=== PATIENT | female | born 1960 | race Caucasian/White ===

== ENCOUNTER → 2016-09-30 | Day surgery (SDC) | payer BC, OTHER ==
[2016-08-31 13:48] VITALS: BMI 50.0
--- NOTE | 2016-08-31 14:33 | PAT Medication Instructions ---
Service Date Aug 31, 2016. Current Home Medication List Albuterol Inhaler (Ventolin Inhaler), 2 PUFFS INH Q4H Aspirin (Aspirin Ec), 81 MG PO QAM Calcium Polycarbophil (Fiber Tabs), 1 TAB PO QAM Cyclobenzaprine Hcl (Flexeril), 10 MG PO TID Duloxetine Hcl (Cymbalta), 60 MG PO QAM Fluticasone Prop/Salmeterol (Advair Diskus 500/50 60 Dose), 1 PUFF INH BID Fluticasone Propionate (Nasal) (Flonase Allergy Relief), 2 SPRAYS MIGUEL ÁNGEL QAM Furosemide (Lasix), 40 MG PO BID Gabapentin (Neurontin), 800 MG PO TID Hyoscyamine Sulfate (Levsin), 0.125 MG PO Q4H PRN for RN Levothyroxine Sodium (Levothyroxine Sodium), 1 TAB PO QAM Meloxicam (Mobic), 7.5 MG PO BID PRN for RN Metformin Hcl (Glucophage), 500 MG PO QAM Metoprolol Tartrate (Lopressor), 25 MG PO BID Montelukast Sodium (Singulair), 10 MG PO HS Multiple Vitamin (Multivitamin), 1 TAB PO QAM Nitroglycerin (Nitrostat), 1 TAB SL UD Pantoprazole (Protonix), 40 MG PO QAM Simvastatin (Zocor), 20 MG PO HS Spironolactone (Aldactone), 25 MG PO QAM Trazodone Hcl (Trazodone), 50-100 MG PO HS [Albuterol Neb], 1 DOSE INH Q4H PRN for N [Calcium ], 600 MG PO QAM Medication Instructions For Your Scheduled Surgery - Use if needed: Nitroglycerin (Nitrostat), 1 TAB SL UD - Hold the following medications 48 hours prior to surgery: Metformin Hcl (Glucophage), 500 MG PO QAM - Hold the following medications the morning of surgery: Furosemide (Lasix), 40 MG PO BID Calcium Polycarbophil (Fiber Tabs), 1 TAB PO QAM Cyclobenzaprine Hcl (Flexeril), 10 MG PO TID Multiple Vitamin (Multivitamin), 1 TAB PO QAM Spironolactone (Aldactone), 25 MG PO QAM [Calcium ], 600 MG PO QAM Meloxicam (Mobic), 7.5 MG PO BID PRN (otherwise okay to continue per surgeon) - Take the following medications the morning of surgery with a sip of water OTHERWISE NOTHING TO EAT OR DRINK AFTER MIDNIGHT: Levothyroxine Sodium (Levothyroxine Sodium), 1 TAB PO QAM Albuterol Inhaler (Ventolin Inhaler), 2 PUFFS INH Q4H (use if needed; BRING TO HOSPITAL) Aspirin (Aspirin Ec), 81 MG PO QAM Duloxetine Hcl (Cymbalta), 60 MG PO QAM Metoprolol Tartrate (Lopressor), 25 MG PO BID Gabapentin (Neurontin), 800 MG PO TID Hyoscyamine Sulfate (Levsin), 0.125 MG PO Q4H PRN Pantoprazole (Protonix), 40 MG PO QAM [Albuterol Neb], 1 DOSE INH Q4H PRN Fluticasone Prop/Salmeterol (Advair Diskus 500/50 60 Dose), 1 PUFF INH BID Fluticasone Propionate (Nasal) (Flonase Allergy Relief), 2 SPRAYS MIGUEL ÁNGEL QAM - Take the following medications as scheduled the night before surgery: Albuterol Inhaler (Ventolin Inhaler), 2 PUFFS INH Q4H Cyclobenzaprine Hcl (Flexeril), 10 MG PO TID Furosemide (Lasix), 40 MG PO BID Metoprolol Tartrate (Lopressor), 25 MG PO BID Gabapentin (Neurontin), 800 MG PO TID Montelukast Sodium (Singulair), 10 MG PO HS Trazodone Hcl (Trazodone), 50-100 MG PO HS Simvastatin (Zocor), 20 MG PO HS Hyoscyamine Sulfate (Levsin), 0.125 MG PO Q4H PRN [Albuterol Neb], 1 DOSE INH Q4H PRN Fluticasone Prop/Salmeterol (Advair Diskus 500/50 60 Dose), 1 PUFF INH BID Fluticasone Propionate (Nasal) (Flonase Allergy Relief), 2 SPRAYS MIGUEL ÁNGEL QAM If you have any questions please call us at [phone] or [phone] or [phone]
--- NOTE | 2016-08-31 14:54 | DIAGNOSTIC IMAGING REPORT ---
CHEST 2 VIEWS ROUTINE CLINICAL HISTORY: Preoperative chest COMPARISON STUDY: 06/17/2013 FINDINGS: The cardiac and mediastinal contours remain stable. There is stable interstitial thickening, likely secondary to mild underlying interstitial lung disease. There is no lobar consolidation. There are no pleural effusions.[ IMPRESSION: Stable mild interstitial thickening. No evidence of lobar consolidation. Electronically signed by: Rishi Miller M.D. 08/31/2016 2:52 PM Dictated Date/Time: 08/31/2016 2:52 PM
[2016-08-31 15:32] LABS: BASO % 0.4 %; BASO ABS # 0.03 K/uL (0-0.2); COMPLETE YES; EOS % 2.9 %; HEMATOCRIT 36.9 % (37-47); IG% 0.3 %; LYMPH % 35.4 %; LYMPH ABS # 2.83 K/uL (1.2-3.4); MEAN CELL VOLUME 94.6 fL (80-100); MEAN CORPUSCULAR HEMOGLOBIN 30.5 pg (25-34); MEAN CORPUSCULAR HGB CONC 32.2 g/dl (32-36); MEAN PLATELET VOLUME 10.6 fL (7.4-10.4); PLATELET COUNT 263 K/uL (130-400); WHITE BLOOD COUNT 7.99 K/uL (4.8-10.8)
[2016-08-31 15:44] LABS: URINE APPEARANCE CLEAR (CLEAR); URINE BILIRUBIN NEG (NEG); URINE COLOR YELLOW; URINE NITRITE NEG (NEG); URINE PH 5.5 (4.5-7.5); URINE SPECIFIC GRAVITY 1.018 (1.000-1.030); UROBILINOGEN NEG (NEG); ZZUR CULT IF INDIC CLEAN CATCH NO
[2016-08-31 15:53] LABS: INR 0.9 (0.9-1.1); PROTHROMBIN TIME (PATIENT) 10.1 SECONDS (9.0-12.0)
[2016-08-31 15:59] LABS: MANUAL MICROSCOPIC REQUIRED? NO; REVIEW REQ? NO
[2016-08-31 16:14] LABS: BUN/CREATININE RATIO 15.9 (10-20); CALCIUM 8.8 mg/dl (8.5-10.1); CREATININE 0.77 mg/dl (0.60-1.20); POTASSIUM 4.6 mmol/L (3.5-5.1)
--- NOTE | 2016-09-19 13:36 | History and Physical ---
History & Physical Date Sep 19, 2016. Chief Complaint Left shoulder pain History of Present Illness The patient is a 56 year old female with complaints of left shoulder pain. She states the pain has gotten worse over time. This does affect her activities of daily living and being able to complete them. She has failed PT, NSAIDs, and cortisone injections. She would like to proceed with left shoulder arthroscopy. Past Medical/Surgical History Medial History (1) Hypercholesterolemia (2) Irregular Heart beat (3) Asthma (4) NIDDM (5) Hypothyroidism (6) GERD Surgical History (1) Heart Catheritization 2014 (2) Left TKA (3) 3 x Right knee arthroscopy (4) Right shoulder SAD DCE (5) Additional History Hepatic Disease: No Endocrine Disorder: Yes (NIDDM, Hypothryoidism) Kidney Disease: No Hypertension: No Heart Disease: No Bleeding Tendencies: No Infectious Diseases: No Allergies Coded Allergies: Tetracycline (Unverified Allergy, Severe, HIVES, SOB, 08/31/16) Home Medications Scheduled Albuterol Inhaler (Ventolin Inhaler), 2 PUFFS INH Q4H Aspirin (Aspirin Ec), 81 MG PO QAM Calcium Polycarbophil (Fiber Tabs), 1 TAB PO QAM Cyclobenzaprine Hcl (Flexeril), 10 MG PO TID Duloxetine Hcl (Cymbalta), 60 MG PO QAM Fluticasone Prop/Salmeterol (Advair Diskus 500/50 60 Dose), 1 PUFF INH BID Fluticasone Propionate (Nasal) (Flonase Allergy Relief), 2 SPRAYS MIGUEL ÁNGEL QAM Furosemide (Lasix), 40 MG PO BID Gabapentin (Neurontin), 800 MG PO TID Levothyroxine Sodium (Levothyroxine Sodium), 1 TAB PO QAM Metformin Hcl (Glucophage), 500 MG PO QAM Metoprolol Tartrate (Lopressor), 25 MG PO BID Montelukast Sodium (Singulair), 10 MG PO HS Multiple Vitamin (Multivitamin), 1 TAB PO QAM Nitroglycerin (Nitrostat), 1 TAB SL UD Pantoprazole (Protonix), 40 MG PO QAM Simvastatin (Zocor), 20 MG PO HS Spironolactone (Aldactone), 25 MG PO QAM Trazodone Hcl (Trazodone), 50-100 MG PO HS [Calcium ], 600 MG PO QAM Scheduled PRN Hyoscyamine Sulfate (Levsin), 0.125 MG PO Q4H PRN for RN Meloxicam (Mobic), 7.5 MG PO BID PRN for RN [Albuterol Neb], 1 DOSE INH Q4H PRN for N Physical Examination Skin: warm/dry, no rash Eyes: normal inspection, EOMI ENT: normal ENT inspection Head: normocephalic, atraumatic Neck: supple, no adenopathy Respiratory/Chest: lungs clear, normal breath sounds Cardiovascular: + abnormal rate (irregular rate) Abdomen / GI: normal bowel sounds, non tender Extremities: normal inspection, + pertinent finding (decreased ROM, decreased strength. positive neer impingement, positive hawkin shemar tests) Neurologic/Psych: no motor/sensory deficits, alert Diagnosis Left shoulder impingement syndrome Plan of Treatment Patient is scheduled for a Left shoulder arthroscopy with Subacromial decompression and distal clavicle excision. She had failed conservative therapies that include NSAIDs, cortisone injections and PT. The pain makes it difficult to perform her ADL's. She would like to proceed with surgery. She will be schedule for a left shoulder arthroscopy with subacromial decompression and distal clavicle excision. Risks and benefits were discussed with the patient that include but not limited to infection, DVT, pain, stiffness, need for revision surgery, failure to relieve all symptoms, damage to blood vessels, damage to nerves, and anesthesia risks. She wishes to proceed. all questions were answered to her satisfaction. She will go home with self care after the surgery.
[~2016-09-30] VITALS: Ht 162.6 cm; Wt 131.3 kg
[~2016-09-30] MED LIST: ACETAMINOPHEN 650 MG SUPP PR PRN; ADVIN50/60 INH; ALBUAER19 INH; ALBUTEROL NEB INH; ASPI81TA28 PO; ATROPINE SULFATE 0.1 MG/ML 5ML SYR IV PRN; BUPIVACAINE 0.5 % 5 MG/1 ML MPF 30ML VIAL ONE; CALC625T13 PO; CALCIUM PO; CEFAZOLIN 3000 MG/65 ML D5W IV SCH; CYCL10TA6 PO; CYM/30 PO; DEXAMETHASONE SOD INJ 4 MG/ML VIAL ONE; EpINEphrine HCL INJ 1 MG/ML 5ML SYRINGE ONE; FENTANYL CITRATE INJ 50 MCG/1 ML 2 ML VIAL ONE; FLUT0.15 NAE; FURO40TA3 PO; GABA800T PO; GLC/500 PO; GLYCOPYRROLATE INJ 0.2 MG/ML VIAL ONE; HYOS1TAB PO; KETOROLAC TROMETHAMINE 30 MG/ML VIAL IV. PRN; LACTATED RINGER'S 1000ML 1,000 ML IV SCH; LEVO125T4 PO; LIDOCAINE HCL 2% 2 ML VIAL (20MG/ML) ONE; LIDOCAINE/EPINEPHRINE 1% 20 ML VIAL ONE; LPR25 PO; MELO7.5T5 PO; METOPROLOL TARTRATE 1 MG/ML VIAL ONE; MIDAZOLAM HCL 1 MG/ML 2ML VIAL ONE; MONT1TAB3 PO; MULTTAB58 PO; NEOSTIGMINE METHYLSULFATE 5 MG/5 ML SYR ONE; NTRGSL/4 SL; ONDANSETRON INJ 2 MG/ML 2 ML VIAL IV PRN; ONDANSETRON INJ 2 MG/ML 2 ML VIAL ONE; OXYC-57 PO; OXYCODONE/ACETAMINOPHEN 5-325 TAB PO PRN; PANT40TA PO; PROPOFOL IV EMULSION 10 MG/ML 20 ML VIAL IV ONE; ROCURONIUM BROMIDE 10 MG/ML 5 ML VIAL ONE; ROPIVACAINE 0.5% 5 MG/ML 30 ML VIAL ONE; SCOPOLAMINE 1.5 MG TDSY TD ONE; SIMV20TA5 PO; SPIR25TA89 PO; TRAZ50TA35 PO
[2016-09-30 10:22] VITALS: BP 154/81; PULSE 72; TEMP 36.7; O2SAT 94; Ht 162.6 cm; Wt 131.3 kg
--- NOTE | 2016-09-30 10:35 | History & Physical Bridge Note ---
H&P Re-Evaluation Bridge Note: I have examined the patient, reviewed the History & Physical and in the interval since the performance of the History & Physical I have noted the following changes of clinical significance: No changes noted
--- NOTE | 2016-09-30 14:47 | Discharge Instructions ---
Discharge Instructions Date of Service Sep 30, 2016. Admission Reason for Admission: Left Shoulder Impingement Syndrome, Osteoarthritis Discharge Discharge Diagnosis / Problem: Left shoulder Subacromial decompression, distal clavicle excision Discharge Goals Goal(s): Decrease discomfort, Improve function Activity Recommendations Activity Limitations: per Instructions/Follow-up section . Instructions / Follow-Up Instructions / Follow-Up U DISCHARGE INSTRUCTIONS: SHOULDER ARTHROSCOPY with or without Distal Clavicle Excision SELF CARE INSTRUCTIONS AFTER: A. You are allowed to use your arm actively as comfort allows. Recommend NOT doing repetitive overhead activity or heavy lifting. B. You should start Physical Therapy within 1-3 days from your surgery. You will be provided a prescription with specific restrictions, if needed, at time of discharge. C. You can discontinue the sling as comfort allows within one to two days after surgery. A. At 48 hours post-operatively, you may change your dressing. Use band-aids and change daily. You are allowed to shower at this time and get the incision area wet, but DO NOT soak or submerge incision area in water. (No baths, swimming pools, hot tubs) B. Do NOT apply soap or any ointment/lotions directly over incision. C. You may use ice as needed to operative shoulder SPECIAL CARE INSTRUCTIONS: VERY IMPORTANT TO READ AND REVIEW A. There are a few signs you need to watch for after you are home. Call [facility] at [phone] if you experience any of the following: a. Increased severe shoulder pain. Some pain is expected especially when you exercise b. Increased swelling in your shoulder or arm; pain or swelling in either upper extremity. (Note: swelling and stiffness is normal and expected for several weeks post op, depending on type of shoulder surgery you had). c. Any fluid or drainage from the incision; redness of the incision. d. Shortness of breath or chest pain. B. Please call [facility] at [phone] if you have any questions or concerns about your operation or recovery. C. Call your physician if: a. Temperature is greater than 101 degrees (F). b. Pain is not relieved by prescribed pain medications. c. Increase drainage or redness from incision. d. Unanswered questions or concerns. D. Pain Medication: a. You will be prescribed pain medication upon discharge that should last till your first post-operative appointment. b. You may also take Advil or Ibuprofen between medication doses if you do not have any contraindication to taking them. c. You may also take Advil or Ibuprofen in place of your pain medication if the pain is tolerable. d. If you experience nausea and/or skin rash, discontinue this medication and contact our office for an alternative medication. e. Caution- narcotic pain medication can cause constipation. FOLLOW UP VISIT: Please call [facility] [place] at [phone] to schedule a follow up appointment 10-14 days from your surgery date. Current Hospital Diet Patient's current hospital diet: Regular Diet Discharge Diet Recommended Diet: Regular Diet Pending Studies Studies pending at discharge: no Medical Emergencies . Who to Call and When: Medical Emergencies: If at any time you feel your situation is an emergency, please call 911 immediately. . Non-Emergent Contact Non-Emergency issues call your: Surgeon Call Non-Emergent contact if: temperature is above 101.5, your pain is worsening, wound has increased drainage, wound has increased redness . "Provider Documentation" section prepared by Brian Varela. . VTE Core Measure Inpt VTE Proph given/why not?: Treatment not indicated [place] Drug Monitoring Program Search Results: patient reviewed within database, no issues identified
[2016-09-30] MEDS: FENTANYL CITRATE INJ 50 MCG/1 ML 2 ML VIAL IV PRN ×3 (15:30→15:40)
--- NOTE | 2016-09-30 15:46 | [facility] Operative Report ---
Operative Report Operative Date Sep 30, 2016. Pre-Operative Diagnosis Left shoulder impingment syndrome, AC joint arthritis, glenohumeral arthritis, labral tear, synovitis Post-Operative Diagnosis Same as preop. Procedure(s) Performed Left Shoulder Arthroscopic Subacromial Decompression and Distal Clavicle Excision, Extensive debridement. Surgeon Dr. Suazo Echocardiographer Surgeon(s) None Estimated Blood Loss 2 ml Findings Above Specimens None. Drains 0 Anesthesia geta, interscalene Complication(s) None Disposition Recovery Room / PACU Indications 56-year-old female with long-standing pain over shoulder. She is failed conservative measures including cortisone injection and physical therapy. She wishes to proceed with arthroscopy. Description of Procedure Risks, benefits and alternatives to surgery including, but not limited to, infection DVT, pain, stiffness, need for revision surgery, failure to relieve all symptoms, damage to blood vessels, damage to nerves, risk of anesthesia were discussed with the patient and they wished to proceed. The patient was identified. Laterality was confirmed and marked. The patient received a preoperative antibiotic as well as an interscalene block. They were transferred to the operating room and placed in the supine position and induced into general endotracheal anesthesia per the anesthesia staff. The patient was then safely transferred to the lateral decubitus position, secured by a beanbag. An axillary roll was placed. All pressure points were well-padded. The limb was placed in 10 pounds of lateral traction and then prepped and draped in the usual standard manner with ChloraPrep. The portal sites were anesthetized with 2% lidocaine with epinephrine. I made a standard posterior viewing portal made through a stab incision and then bluntly entered the glenohumeral joint. Then under spinal needle localization, I establish an anterior superolateral portal. The cartilage of the humeral head had a significant amount of degeneration. There were areas of grade 4 change. Loose chondral fragments were seen in the joint and removed with the shaver. The cartilage of the glenoid had grade 2 and 3. The glenoid labrum had some degenerative tearing of the anterior labrum. This was debrided back to stable base utilizing a shaver. The long head of the biceps tendon was normal. The subscapularis was normal. The undersurface of the rotator cuff was intact. I then removed the instrumentation from the joint and entered the subacromial space. I establish a lateral portal under spinal needle localization. There was fairly thickened bursa that was debrided utilizing a shaver. The rotator cuff was normal. I then released the CA ligament with cautery and performed a subacromial decompression, first removing the anterior inferior spur from laterally and then completing with a cutting block technique. I then performed a distal clavicle excision removing a total of 10 mm of bone. Portal sites were closed with nylon. A sterile dressing was applied and a sling placed. All needle and sponge counts were correct at the end of the procedure. The patient was transferred to the PACU in stable condition without apparent complication. I attest to the content of the Intraoperative Record and any orders documented therein. Any exceptions are noted below.
--- NOTE | 2016-09-30 15:49 | Anesthesiology Progress Note ---
Anesthesia Post Op Note Date & Time Sep 30, 2016 at 15:48 Vital Signs Pain Intensity: 4.0 Vital Signs Past 12 Hours Date Time Temp Pulse Resp B/P (MAP) Pulse Ox O2 Delivery O2 Flow Rate FiO2 09/30/16 15:40 94 17 147/76 93 Nasal Cannula 2 09/30/16 15:35 98 16 143/78 92 Nasal Cannula 2 09/30/16 15:30 88 16 159/123 96 Oxymask 10 09/30/16 15:20 89 18 153/95 99 Oxymask 10 09/30/16 15:12 36.2 91 16 133/91 95 Oxymask 10 09/30/16 10:22 36.7 72 20 154/81 (105) 94 Room Air Notes Mental Status: alert / awake / arousable, participated in evaluation Pt Amnestic to Procedure: Yes Nausea / Vomiting: adequately controlled Pain: adequately controlled Airway Patency, RR, SpO2: stable & adequate BP & HR: stable & adequate Hydration State: stable & adequate Anesthetic Complications: no major complications apparent
[2016-09-30 16:05] VITALS: BP 133/67; PULSE 92; TEMP 36.9; O2SAT 93
[2016-09-30 16:35] VITALS: BP 132/67; PULSE 82; O2SAT 93
[2016-09-30 17:05] VITALS: BP 126/61; PULSE 88; TEMP 36.7; O2SAT 93
== END | disposition home or self-care (01) ==
LOC: C.ACU 09:52
PROVIDERS: ATTEND Orthopaedic Surgery
DX: M75.42 Impingement syndrome of left shoulder (principal); M19.012 Primary osteoarthritis, left shoulder; M65.812 Other synovitis and tenosynovitis, left shoulder; S46.812A Strain of other muscles, fascia and tendons at shoulder and upper arm level, left arm, initial encounter; X58.XXXA Exposure to other specified factors, initial encounter; E78.00 Pure hypercholesterolemia, unspecified; I49.9 Cardiac arrhythmia, unspecified; J45.909 Unspecified asthma, uncomplicated; E11.9 Type 2 diabetes mellitus without complications; E03.9 Hypothyroidism, unspecified; K21.9 Gastro-esophageal reflux disease without esophagitis; Z79.82 Long term (current) use of aspirin; Z79.84 Long term (current) use of oral hypoglycemic drugs; Z79.899 Other long term (current) drug therapy

== ENCOUNTER 2019-11-19 08:45 | Inpatient (IN) ==
--- NOTE | 2019-10-21 15:06 | PAT Medication Instructions ---
Medication Instructions Date of Service October 21, 2019 Home Medications Medication Instructions Recorded acetaminophen 500 mg PO Q6H PRN #60 cap 01/14/18 celecoxib [Celebrex] 200 mg PO BID #60 cap 01/14/18 albuterol sulfate 0.63 mg INHALATION UD PRN albuterol sulfate [Ventolin HFA] 2 puff INHALATION UD PRN calcium carbonate [Calcium 600] 600 mg PO QAM calcium polycarbophil [Fiber (calcium polycarbophil)] 625 mg PO QAM docusate sodium [Colace] 100 mg PO QAM duloxetine [Cymbalta] 60 mg PO QAM fluticasone propion-salmeterol [Advair Diskus] 1 inh INHALATION BID fluticasone propionate [Flonase Allergy Relief] 2 spray INTRANASAL QAM furosemide 2 tab PO QAM gabapentin 2 tab PO TID levothyroxine [Levo-T] 150 mcg PO QAM metformin 850 mg PO BID metoprolol tartrate 25 mg PO QAM montelukast [Singulair] 10 mg PO HS multivitamin [Multiple Vitamins] 1 tab PO QAM nitroglycerin 1 tab SUBLINGUAL UD PRN polyethylene glycol 3350 [Miralax] 1 dose PO QAM simvastatin [Zocor] 20 mg PO HS spironolactone 25 mg PO QAM acetaminophen 500 mg PO Q6H PRN celecoxib [Celebrex] 200 mg PO BID amitriptyline 50 mg PO HS semaglutide [Ozempic] 0.25 mg SUBCUT WK Continue as directed nitroglycerin 1 tab SUBLINGUAL UD PRN (if needed) semaglutide [Ozempic] 0.25 mg SUBCUT WK ASK your surgeon for instructions celecoxib [Celebrex] 200 mg PO BID DO NOT take the morning of surgery calcium carbonate [Calcium 600] 600 mg PO QAM calcium polycarbophil [Fiber (calcium polycarbophil)] 625 mg PO QAM docusate sodium [Colace] 100 mg PO QAM furosemide 2 tab PO QAM metformin 850 mg PO BID multivitamin [Multiple Vitamins] 1 tab PO QAM polyethylene glycol 3350 [Miralax] 1 dose PO QAM spironolactone 25 mg PO QAM Take morning of surgery With a small sip of water, OTHERWISE NOTHING TO EAT OR DRINK AFTER MIDNIGHT: albuterol sulfate 0.63 mg INHALATION UD PRN (if needed) albuterol sulfate [Ventolin HFA] 2 puff INHALATION UD PRN (if needed) duloxetine [Cymbalta] 60 mg PO QAM fluticasone propion-salmeterol [Advair Diskus] 1 inh INHALATION BID fluticasone propionate [Flonase Allergy Relief] 2 spray INTRANASAL QAM gabapentin 2 tab PO TID levothyroxine [Levo-T] 150 mcg PO QAM metoprolol tartrate 25 mg PO QAM acetaminophen 500 mg PO Q6H PRN (okay to take up to 4 hours prior to surgery if needed) Take evening before surgery albuterol sulfate 0.63 mg INHALATION UD PRN (if needed) albuterol sulfate [Ventolin HFA] 2 puff INHALATION UD PRN (if needed) fluticasone propion-salmeterol [Advair Diskus] 1 inh INHALATION BID gabapentin 2 tab PO TID metformin 850 mg PO BID montelukast [Singulair] 10 mg PO HS simvastatin [Zocor] 20 mg PO HS acetaminophen 500 mg PO Q6H PRN (if needed) amitriptyline 50 mg PO HS Other Notes If you have any questions please call us at [phone] or [phone] or [phone] or [phone]
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
--- NOTE | 2019-10-24 14:52 | XRay Report ---
XR chest Pre-admission PA/Lat CLINICAL HISTORY: pat preoperative evaluation COMPARISON STUDY: 06/17/2013 FINDINGS: Mild chronic interstitial prominence. No focal infiltrate. Diaphragms are smooth. IMPRESSION: Chronic change. No acute process. ACT 112: Negative or not required by law. The above report was generated using voice recognition software. It may contain grammatical, syntax or spelling errors. Electronically signed by: Melecio Rowan M.D. 10/24/2019 2:51 PM
[2019-10-24 15:46] LABS: Basophils # (auto) 0.02 K/uL (0-0.2); Basophils % (auto) 0.2 %; Eosinophils # (auto) 0.24 K/uL (0-0.5); Eosinophils % (auto) 2.9 %; Hematocrit (blood only) 38.1 % (37-47); Immature Granulocytes # (auto) 0.01 K/uL (0.00-0.02); Immature Granulocytes % (auto) 0.1 %; Lymphocytes # (auto) 3.62 K/uL (1.2-3.4); Lymphocytes % (auto) 43.7 %; Mean Corpuscular Hemoglobin 29.4 pg (25-34); Mean Corpuscular Hgb Conc 31.5 g/dL (32-36); Mean Corpuscular Volume 93.4 fL (80-100); Mean Platelet Volume 10.4 fL (7.4-10.4); Monocytes # (auto) 0.48 K/uL (0.11-0.59); Monocytes % (auto) 5.8 %; Neutrophils # (auto) 3.92 K/uL (1.4-6.5); Neutrophils % (auto) 47.3 %; Platelet Count 313 K/uL (130-400); RDW Coefficient of Variation 13.4 % (11.5-14.5); RDW Standard Deviation 45.9 fL (36.4-46.3); Red Blood Count 4.08 M/uL (4.2-5.4); White Blood Count 8.29 K/uL (4.8-10.8)
[2019-10-24 15:48] LABS: Appearance Urine Clear (Clear); Bilirubin Urine Negative (Negative); Blood Urine Negative (Negative); Color Urine Yellow; Glucose Urine UA Negative (Negative); Ketones Urine Negative (Negative); Leukocyte Esterase Urine Negative (Negative); Nitrite Urine Negative (Negative); Protein Urine Negative (Negative); Specific Gravity Urine 1.012 (1.000-1.030); Urobilinogen Urine Negative (Negative); pH Urine 6.5 (4.5-7.5)
[2019-10-24 15:52] LABS: Albumin Level 3.4 gm/dl (3.4-5.0); BUN Creatinine Ratio 12.7 (10-20); Calcium 9.6 mg/dl (8.5-10.1); Creatinine Clr Calc Pharmacy 101.7 ml/min; Est GFR (African American) 104.5; Est GFR (Non-African American) 90.1; Potassium 5.3 mmol/L (3.5-5.1)
[2019-10-24 15:58] LABS: Partial Thromboplastin Ratio 1.1; Partial Thromboplastin Time 29.5 Seconds (21.0-31.0); Prothrombin Time 10.9 Seconds (9.0-12.0)
--- NOTE | 2019-10-24 17:35 | Electrocardiogram Report ---
Test Reason : Blood Pressure : / mmHG Vent. Rate : 057 BPM Atrial Rate : 057 BPM P-R Int : 158 ms QRS Dur : 096 ms QT Int : 432 ms P-R-T Axes : 038 057 044 degrees QTc Int : 420 ms Sinus bradycardia Otherwise normal ECG When compared with ECG of 31-AUG-2016 14:30, No significant change was found Confirmed by Bob Byrne ([id number]) on 10/24/2019 5:35:09 PM Referred By: Pardeep Guerrero Confirmed By:Randy Byrne
[2019-10-25 05:40] LABS: Estimated Average Glucose 131 mg/dl; Hemoglobin A1C 6.2 % (4.5-5.6)
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
[~2019-11-19 08:45] MED LIST changes: +ACETAMINOPHEN 500 MG TAB PO SCH; -ACETAMINOPHEN 650 MG SUPP PR PRN; -ADVIN50/60 INH; -ALBUAER19 INH; -ALBUTEROL NEB INH; -ASPI81TA28 PO; -ATROPINE SULFATE 0.1 MG/ML 5ML SYR IV PRN; -BUPIVACAINE 0.5 % 5 MG/1 ML MPF 30ML VIAL ONE; +BUPIVACAINE 0.5 % 5 MG/1 ML PF 10ML VIAL ONE; -CALC625T13 PO; -CALCIUM PO; +CEFAZOLIN 2000MG 2,000 MG/15 ML SYR IV SCH; -CEFAZOLIN 3000 MG/65 ML D5W IV SCH; -CYCL10TA6 PO; -CYM/30 PO; +CeleBREX 200 MG CAP PO SCH; -DEXAMETHASONE SOD INJ 4 MG/ML VIAL ONE; -EpINEphrine HCL INJ 1 MG/ML 5ML SYRINGE ONE; +FAMOTIDINE 20 MG TAB PO SCH; -FENTANYL CITRATE INJ 50 MCG/1 ML 2 ML VIAL ONE; -FLUT0.15 NAE; -FURO40TA3 PO; -GABA800T PO; +GABAPENTIN 600 MG DOSE PO SCH; -GLC/500 PO; -GLYCOPYRROLATE INJ 0.2 MG/ML VIAL ONE; -HYOS1TAB PO; -KETOROLAC TROMETHAMINE 30 MG/ML VIAL IV. PRN; -LACTATED RINGER'S 1000ML 1,000 ML IV SCH; -LEVO125T4 PO; -LIDOCAINE HCL 2% 2 ML VIAL (20MG/ML) ONE; -LIDOCAINE/EPINEPHRINE 1% 20 ML VIAL ONE; -LPR25 PO; +LR 500ML BOLUS, THEN 15ML/HR IV SCH; -MELO7.5T5 PO; +METOCLOPRAMIDE HCL 10 MG TABLET PO SCH; -METOPROLOL TARTRATE 1 MG/ML VIAL ONE; -MIDAZOLAM HCL 1 MG/ML 2ML VIAL ONE; -MONT1TAB3 PO; -MULTTAB58 PO; -NEOSTIGMINE METHYLSULFATE 5 MG/5 ML SYR ONE; -NTRGSL/4 SL; -ONDANSETRON INJ 2 MG/ML 2 ML VIAL IV PRN; -ONDANSETRON INJ 2 MG/ML 2 ML VIAL ONE; -OXYC-57 PO; -OXYCODONE/ACETAMINOPHEN 5-325 TAB PO PRN; -PANT40TA PO; -PROPOFOL IV EMULSION 10 MG/ML 20 ML VIAL IV ONE; -ROCURONIUM BROMIDE 10 MG/ML 5 ML VIAL ONE; -ROPIVACAINE 0.5% 5 MG/ML 30 ML VIAL ONE; +ROPIVACAINE 0.5% HCL/PF 150 MG, BUPIVACAINE 0.5% MPF 30 ML, EPINEPHrine 30MG/30ML (OR U... INSTIL SCH; -SCOPOLAMINE 1.5 MG TDSY TD ONE; -SIMV20TA5 PO; -SPIR25TA89 PO; +TRANEXAMIC ACID 1,000 MG **IV Intra-op IV SCH; +TRANEXAMIC ACID 1,000 MG **IV Pre-op IV SCH; -TRAZ50TA35 PO; +dexAMETHasone 4 MG TAB PO SCH
[2019-11-19] MEDS ORDERED: fentaNYL citrate 100 MCG/2 ML VIAL ONE (09:45)
[2019-11-19] MEDS ORDERED: MIDAZOLAM HCL 1 MG/ML 2ML VIAL ONE (09:45)
[2019-11-19] MEDS ORDERED: PROPOFOL IV EMULSION 10 MG/ML 20 ML VIAL IV ONE ×2 (10:13→13:17)
[2019-11-19] MEDS ORDERED: LIDOCAINE HCL 2% 2 ML VIAL/AMP(20MG/ML) INFIL ONE (10:13)
[2019-11-19] MEDS ORDERED: ONDANSETRON INJ 2 MG/ML 2 ML VIAL ONE (10:14)
[2019-11-19] MEDS ORDERED: ONDANSETRON INJ 2 MG/ML 2 ML VIAL IV PRN ×2 (10:17→15:30)
[2019-11-19] MEDS ORDERED: ePHEDrine sulfate 50 MG/ML AMP IV PRN (10:17)
[2019-11-19] MEDS ORDERED: HYDROmorphone INJ 1 MG/ML SYRINGE IV PRN (10:17)
[2019-11-19] MEDS ORDERED: ATROPINE SULFATE 0.1 MG/ML 10ML SYR IV PRN (10:17)
[2019-11-19] MEDS ORDERED: fentaNYL citrate 100 MCG/2 ML VIAL IV PRN (10:17)
--- NOTE | 2019-11-19 10:46 | History & Physical Bridge Note ---
Date of Service November 19, 2019 History & Physical Bridge Note I have examined the patient, reviewed the History & Physical and in the interval since the performance of the History & Physical I have noted the following changes of clinical significance: no changes noted
[2019-11-19] MEDS ORDERED: ORTHO JOINT ANESTHETIC ONE (11:06)
[2019-11-19] MEDS ORDERED: BACITRACIN INJ 50,000 UNIT VIAL ONE (11:06)
[2019-11-19] MEDS ORDERED: ePHEDrine sulfate 50 MG/ML SYR ONE (11:48)
--- NOTE | 2019-11-19 13:32 | Post Operative Brief Note ---
Immediate Post Op Note v1 Date of Surgery November 19, 2019 Pre & Post Diagnosis Operation Date: 11/19/19 10:50 Pre-Op Diagnosis: Unilateral Primary Osteoarthrits, Right Hip Post-Op Diagnosis: Unilateral Primary Osteoarthrits, Right Hip I identified the patient and participated in the time-out.: Yes Procedure Operation Date: 11/19/19 10:50 Actual Procedures p Right Total Hip Arthroplasty Posterior(Right) - Pardeep Guerrero DO Surgeon Pardeep Guerrero DO Animal Sitter Wyatt Boyle Estimated Blood Loss 225 Findings Consistent with Post-Op Diagnosis Fluids 1700 cc LR Specimens femoral head Anesthesia Type Spinal MAC Complications none Disposition Disposition: Recovery Room Overlapping Procedure I was present for: the critical portions of procedure. I was immediately available: during the entire case. Back up surgeon: was not required during procedure.
--- NOTE | 2019-11-19 13:37 | Operative Report ---
Post Operative Report Pre & Post Diagnosis Operation Date: 11/19/19 10:50 Pre-Op Diagnosis: Unilateral Primary Osteoarthrits, Right Hip Post-Op Diagnosis: Unilateral Primary Osteoarthrits, Right Hip I identified the patient and participated in the time-out.: Yes Procedure Operation Date: 11/19/19 10:50 Actual Procedures p Right Total Hip Arthroplasty Posterior(Right) - Pardeep Guerrero DO Surgeon Pardeep Guerrero DO Chief Engineer Drilling And Recovery Wyatt Boyle Estimated Blood Loss 225 Findings Consistent with Post-Op Diagnosis Fluids 1700 cc LR Specimens femoral head Anesthesia Type Spinal MAC Complications none Disposition Disposition: Recovery Room Indications The patient is a 59-year-old female who presents with severe progressive right hip DJD who has failed outpatient conservative treatments. I indicated the patient for a total hip replacement and the risks and benefits were explained in detail which included but not limited to infection, bleeding, blood clot, damage to surrounding bone, nerves, vessels, soft tissue, hip dislocation, failure of the prosthesis, leg length discrepancy, need for additional surgery and . The patient agreed to proceed with replacement of the hip and informed consent was obtained. Appropriate clearances were obtained. Description of Procedure COMPONENTS USED: [employer]len [employer] hip system: Acetabulum size 52, femur size 7.5 reduced extended offset, femoral head 36+0, liner 5236 high wall, acetabular screw 30 mm x 1, 25 mm x 1. Following induction of adequate spinal anesthesia, the patient was transferred to the OR table and placed in lateral decubitus position with left hip down. The right hip was prepped and draped in the typical sterile fashion. A timeout was performed, patient identified and site raphael confirmed. Appropriate antibiotics were given. A standard posterolateral/Chavez-Langenbeck incision was made. Subcutaneous tissue was sharply dissected. Electrocautery was utilized for hemostasis. The fascia was incised throughout the length of the wound and retracted with the Charnley retractor. The bursa was taken down and the short external rotators were identified. The piriformis was tagged with #1 Vicryl. The short external rotators and capsule were divided from the posterior aspect of the femur using electrocautery. The posterior capsule was tagged with #1 Vicryl. Both external rotators and posterior capsule were swept posterior and protected, along with protecting the sciatic nerve. The hip was dislocated by flexion and internally rotation in a controlled manner and exposure of the femoral neck was gained with an old-style Hohmann and a blunt cobra retractor. A femoral cutting guide was utilized for making the appropriate level femoral neck cut with reciprocating saw. The femoral head was removed, measured and reserved on the back table. Next, attention was turned to the acetabulum. A posterior and anterior offset retractor was placed to gain adequate exposure. Acetabular labrum as well as posterior capsule elements were removed using electrocautery and forceps. Fovea centralis was cleared of all soft tissue. Sequential reaming was performed starting at 44 mm and carried up to a 51 mm and decision was made to proceed with impaction of a 52 mm G7 Osteo-Ti cup. This was impacted and held using a 30 mm and 25 mm bone screw. The trial acetabular liner was placed at this time. Next, attention was turned to the proximal femur where a Bovie and pickup was used to further clear short external rotators from their insertion on the femur. Box osteotome and canal finder was used to gain access to the femoral canal and the lateral reamer on power was used to further open the proximal lateral canal. Sequentially rasping was carried up to a 7.5 which gave good fit and fill of the proximal femur. A trial reduction was carried out with a reduced extended offset femoral neck component a 36+0 mm femoral head. The trial reduction was stable in all degrees of rotation with no [id number] impingement. The hip was dislocated, trial components were removed and access to the acetabulum was re-established. The trial liner was removed and the cup was irrigated to ensure all debris was removed. The final acetabular liner was inserted and properly seated in the cup. Access to the femur was once more gained and the size 10.5 femoral stem with reduced extended offset was impacted into position. The hip was once more assessed with the 36+0 mm femoral head. Stability was accessed and found to be excellent with equal leg lengths. The hip was dislocated for the last time and the final 36+0 ceramic femoral head was impacted in place and the hip was reduced. Range of motion was checked once again and found to be stable. A Betadine soak was performed. After 3 minutes, the hip was once more irrigated with copious sterile saline solution with bacitracin. The angeline-incisional soft tissue was injected utilizing [place] ortho mix which includes a combination of Ropivicaine 0.5% 150mg, Bupivicaine 0.5%/Epinephrine 1:200,000 30ml, Toradol 30mg, Dexamethasone 4mg, Ketamine 10mg, Clonidine 100mcg and NSS 30ml Orthomix solution. The piriformis, external rotators and capsule were repaired to the greater trochanter through bone tunnels using #5 FiberWire. The fascia was closed using #1 Vicryl, subcutaneous tissue was closed using 2-0 Vicryl, and skin was closed with wilian. Sterile dressings were applied which included helio incisional VAC. The patient tolerated the procedure well and was transported to PACU in stable condition. Due to the complex nature of the procedure, the entire surgery was performed with the operational assistance of Wyatt Boyle PA-C. The electrician station assistant, under direct supervision, was involved in the actual performance of all aspects of the surgical procedure including patient positioning, hemostasis, tissue retraction, instrument management and wound closure. I attest to the content of the Intraoperative Record and any orders documented therein. Any exceptions are noted below.
--- NOTE | 2019-11-19 14:20 | XRay Report ---
XR hip 1V RT w pelvis HISTORY: 59 years-old Female IN PACU - A/P PELVIS and LATERAL HIP right hip total joint arthroplast y COMPARISON: None TECHNIQUE: AP view the pelvis with crosstable lateral view of the right hip FINDINGS: Severe left hip osteoarthritis. Right hip total joint arthroplasty demonstrates satisfactory alignmen t. No acute fracture or retained foreign body. Expected postsurgical soft tissue swelling and deep ti ssue air with lateral skin wilian. IMPRESSION: Right hip total joint arthroplasty with expected postoperative changes. ACT 112: Negative or not required by law. The above report was generated using voice recognition software. It may contain grammatical, syntax o r spelling errors. Electronically signed by: Walter Currie M.D. 11/19/2019 2:18 PM
--- NOTE | 2019-11-19 14:26 | Anesthesiology Progress Note ---
Date of Service November 19, 2019 Anesthesia Post Procedure Vital Signs Vital Signs: Temp Pulse Pulse Resp BP Pulse Ox 11/19/19 14:20 36.4 C L 63 19 135/62 99 11/19/19 14:10 72 14 120/67 97 11/19/19 14:00 75 23 113/63 96 11/19/19 13:54 36.6 C 71 20 113/63 94 11/19/19 09:52 59 L 18 140/73 96 11/19/19 09:22 37.1 C 60 18 153/86 H 96 Pain Intensity Right Hip: Pain Intensity: 5 Transfer of Care Handoff Completed per policy Notes Mental Status: alert / awake / arousable and participated in evaluation Patient Amnestic to Procedure: Yes Nausea / Vomiting: adequately controlled Pain: adequately controlled Airway Patency, RR, SpO2: stable & adequate BP & HR: stable & adequate Hydration State: stable & adequate Neuraxial Anesthesia: was administered and sensory block is resolving Anesthetic Complications: no major complications apparent and Pt Satisfied with anesthetic care
[2019-11-19] MEDS ORDERED: METOCLOPRAMIDE HCL INJ 5 MG/ML 2 ML VIAL IV PRN (15:30)
[2019-11-19] MEDS ORDERED: SODIUM CHLORIDE 0.9% 1000ML 1,000 ML IV SCH (15:30)
[2019-11-19] MEDS ORDERED: NALOXONE HCL 0.4 MG/1 ML VIAL/CARP IV PRN (15:30)
[2019-11-19] MEDS ORDERED: MAGNESIUM HYDROXIDE SUSP 30 ML UDC PO PRN (15:30)
[2019-11-19] MEDS ORDERED: bisacodyL 10 MG SUPP PR PRN (15:30)
[2019-11-19] MEDS ORDERED: PHARMACY GLYCEMIC MGMT CONSULT PRN (15:31)
[2019-11-19] MEDS: ACETAMINOPHEN 500 MG TAB PO SCH ×2 (16:13→20:43)
[2019-11-19] MEDS: KETOROLAC TROMETHAMINE 15 MG/ML VIAL IV SCH ×2 (16:13→20:43)
--- NOTE | 2019-11-19 17:28 | Pharmacy Report ---
Glycemic Control Consultation - Date of Service November 19, 2019 - Scope Scope: Glycemic Pharmacist consulted for glycemic control and to write orders per [facility] inpatient glycemic control protocol. - Objective Weight: 110.8 kg Accuchecks BSG (last 24hrs): 11/19/19 11/19/19 09:05 17:16 POC Glucose 113 H 199 H HbA1c: Hemoglobin A1c 6.2 % (4.5-5.6) H 10/24/19 14:25 - Recent Pertinent Medications Outpatient Anti-diabetic Regimen: * Ozempic 0.5 mg SQ every Monday + Metformin 850 mg PO BIDM * A1c = 6.2% (10/24/2019) Risk Factors for Insulin Resistance: * Steroids: * Dexamethasone 8 mg PO x 1 pre-op * Recent Surgery: * POD #0 R KRISTINE * Diet: * T2DM - Assessment & Plan Assessment & Plan: ASSESSMENT: * 59 yo F admitted s/p right total hip arthroplasty. Pharmacy is consulted for inpatient glycemic management. Patient is a well-controlled type 2 diabetic on metformin and GLP-1 RA as an outpatient. * Pre-op BSG was well controlled at 113 mg/dL. Post-op BSG was 199 mg/dL which is elevated likely due to stress of surgery and pre-op steroids. Will give the patient a one time NPH dose of 0.2 units/kg with dinner tonight. Plan on starting correctional/prandial insulin based on weight/stress of three. PLAN FOR INPATIENT GLYCEMIC CONTROL: * Holding outpatient oral diabetes medications * Basal insulin * NPH 20 units SQ x 1 * Bolus insulin * NovoLog per scale ACHS or Q6hrs while NPO * Goal Range: Low 110 mg/dL - High 140 mg/dL * Correction Factor: 15 mg/dL/unit * Nutritional / Prandial insulin per carb ratio of 1 unit per 5 grams CHO consumed * Please note that the plan above was derived based on current level of insulin resistance and hospital stress. These recommendations are appropriate for inpatient admission only. Plan of care upon discharge will need to be reassessed to avoid potential outpatient hypo/hyperglycemia. Thank you.
[2019-11-19] MEDS ORDERED: NovoLIN-N (NPH) PER UNIT CHARGE SQ ONE (17:30)
[2019-11-19] MEDS: INSULIN ASPART 100 UNITS/ML 3 ML PEN SC SCH ×2 (17:51→22:25)
[2019-11-19] MEDS ORDERED: ALBUTEROL HFA 8 GM INHALER INH PRN (19:00)
[2019-11-19] MEDS ORDERED: ALBUTEROL 0.083% NEBU SOLN 3 ML VIAL INH PRN (19:00)
[2019-11-19] MEDS: OXYCODONE HCL IR 5 MG TAB (IMMEDIATE RELEASE) PO PRN ×2 (19:14→23:17)
--- NOTE | 2019-11-19 19:55 | Orthopedic Progress Note ---
Date of Service November 19, 2019 Assessment & Plan (1) Degenerative joint disease of right hip: Status post right total hip arthroplasty -Ancef x24 DVT prophylaxis: SCDs, teds, ASA twice daily Weight-bear as tolerates right lower extremity Posterior hip precautions PT/OT Postoperative x-ray demonstrates a well aligned well fixed prosthesis without evidence of fracture or dislocation A.m. labs DC planning (2) Obesity: In additional to negative effects on overall health, the patient understands that due to their underlying obesity, they are at increased risk for developing the complications listed above. Admission and Anticipated Discharge Date Admission Date: November 19, 2019 Subjective Post Operative Progress Note Patient seen sitting up in bed, comfortable, denies complaints, pain well controlled, no acute issues. Review of Systems Review of Systems: All systems reviewed & are unremarkable except as noted in HPI & below Constitutional: as per Subjective / HPI Physical Exam Physical Exam: RLE NVSI +EHL/FHL/TA/GS SILT grossly, +2 DP pulse, compartments soft NT, dressing cdi. Constitutional: WD/WN, vitals as above Results & Data ([facility]) Vital Signs (Past 12 Hours) Vital Signs Temp Pulse Pulse Resp BP Pulse Ox 11/19/19 19:08 36.7 C 85 17 137/72 93 11/19/19 18:01 36.9 C 96 H 17 136/80 97 11/19/19 16:41 36.5 C 63 17 117/64 94 11/19/19 16:00 36.7 C 88 17 112/71 93 11/19/19 15:15 36.7 C 79 16 115/78 95 11/19/19 14:45 36.9 C 77 16 124/76 95 11/19/19 14:20 36.4 C L 63 19 135/62 99 11/19/19 14:10 72 14 120/67 97 11/19/19 14:00 75 23 113/63 96 11/19/19 13:54 36.6 C 71 20 113/63 94 11/19/19 09:52 59 L 18 140/73 96 11/19/19 09:22 37.1 C 60 18 153/86 H 96
[2019-11-19] MEDS: ASPIRIN 325 MG ECTAB PO SCH (20:44)
[2019-11-19] MEDS: DOCUSATE SODIUM 100 MG CAP PO SCH (20:44)
[2019-11-19] MEDS: GABAPENTIN 800 MG TAB PO SCH (20:44)
[2019-11-19] MEDS ORDERED: SENNA 8.6 MG TAB PO SCH (21:00)
[2019-11-19] MEDS ORDERED: AMITRIPTYLINE HCL 50 MG TAB PO SCH (21:00)
[2019-11-19] MEDS ORDERED: SIMVASTATIN 20 MG TAB PO SCH (21:00)
[2019-11-19] MEDS ORDERED: MONTELUKAST SODIUM 10 MG TABLET PO SCH (21:00)
[2019-11-19] MEDS: CEFAZOLIN 3000MG/72.5 ML BAG IV SCH (21:30)
[2019-11-20] MEDS: HYDROmorphone INJ 0.5 MG/0.5 ML SYR IV PRN ×3 (00:46→14:43)
[2019-11-20] MEDS ORDERED: CEFAZOLIN 3,000 MG in DEXTROSE 5% 50 ML IV ONE (05:45)
[2019-11-20] MEDS: CEFAZOLIN 3000MG/72.5 ML BAG IV SCH (05:47)
[2019-11-20] MEDS: KETOROLAC TROMETHAMINE 15 MG/ML VIAL IV SCH ×2 (05:47→10:20)
[2019-11-20] MEDS: ACETAMINOPHEN 500 MG TAB PO SCH ×2 (05:53→14:43)
[2019-11-20 06:09] LABS: Basophils # (auto) 0.01 K/uL (0-0.2); Basophils % (auto) 0.1 %; Hematocrit (blood only) 36.2 % (37-47); Hemoglobin 11.8 g/dL (12.0-16.0); Immature Granulocytes # (auto) 0.07 K/uL (0.00-0.02); Immature Granulocytes % (auto) 0.4 %; Lymphocytes # (auto) 2.69 K/uL (1.2-3.4); Lymphocytes % (auto) 16.7 %; Mean Corpuscular Hemoglobin 29.8 pg (25-34); Mean Corpuscular Hgb Conc 32.6 g/dL (32-36); Mean Corpuscular Volume 91.4 fL (80-100); Mean Platelet Volume 10.2 fL (7.4-10.4); Monocytes # (auto) 1.08 K/uL (0.11-0.59); Monocytes % (auto) 6.7 %; Neutrophils # (auto) 12.26 K/uL (1.4-6.5); Neutrophils % (auto) 76.1 %; Platelet Count 354 K/uL (130-400); RDW Coefficient of Variation 13.3 % (11.5-14.5); RDW Standard Deviation 44.6 fL (36.4-46.3); Red Blood Count 3.96 M/uL (4.2-5.4); White Blood Count 16.11 K/uL (4.8-10.8)
[2019-11-20] MEDS ORDERED: LEVOTHYROXINE SODIUM 150 MCG TABLET PO SCH (06:30)
[2019-11-20 06:49] LABS: BUN Creatinine Ratio 14.2 (10-20); Calcium 9.1 mg/dl (8.5-10.1); Creatinine Clr Calc Pharmacy 92.9 ml/min; Est GFR (African American) 96.4; Est GFR (Non-African American) 83.2
[2019-11-20] MEDS: OXYCODONE HCL IR 5 MG TAB (IMMEDIATE RELEASE) PO PRN ×2 (07:58→13:03)
[2019-11-20] MEDS: DOCUSATE SODIUM 100 MG CAP PO SCH (08:02)
[2019-11-20] MEDS: GABAPENTIN 800 MG TAB PO SCH ×2 (08:03→14:43)
[2019-11-20] MEDS: ASPIRIN 325 MG ECTAB PO SCH (08:05)
--- NOTE | 2019-11-20 08:26 | Orthopedic Progress Note ---
Date of Service November 20, 2019 Assessment & Plan (1) Degenerative joint disease of right hip: Status post right total hip arthroplasty -Ancef x24 DVT prophylaxis: SCDs, teds, ASA twice daily Weight-bear as tolerates right lower extremity Posterior hip precautions PT/OT Postoperative x-ray demonstrates a well aligned well fixed prosthesis without evidence of fracture or dislocation A.m. labs - as above, hgb 11.8 DC planning - home with (2) Obesity: In additional to negative effects on overall health, the patient understands that due to their underlying obesity, they are at increased risk for developing the complications listed above. Admission and Anticipated Discharge Date Admission Date: November 19, 2019 Subjective Post Operative Progress Note Patient seen sitting up in bed, comfortable, denies complaints, pain well controlled, no acute issues. Denies F/C/N/V/SOB/CP. Review of Systems Review of Systems: All systems reviewed & are unremarkable except as noted in HPI & below Constitutional: as per Subjective / HPI Physical Exam Physical Exam: RLE NVSI +EHL/FHL/TA/GS SILT grossly, +2 DP pulse, compartments soft NT, dressing cdi. Constitutional: WD/WN, vitals as above Results & Data ([facility]) Vital Signs (Past 12 Hours) Vital Signs Temp Pulse Resp BP Pulse Ox 11/20/19 07:40 36.6 C 66 16 115/71 94 11/20/19 03:39 36.7 C 71 18 105/67 97 11/19/19 23:05 36.7 C 78 18 111/66 94 Laboratory Results 11/20/19 11/20/19 11/20/19 Range/Units 08:11 05:21 05:21 WBC 16.11 H (4.8-10.8) K/uL RBC 3.96 L (4.2-5.4) M/uL Hgb 11.8 L (12.0-16.0) g/dL Hct 36.2 L (37-47) % MCV 91.4 (80-100) fL MCH 29.8 (25-34) pg MCHC 32.6 (32-36) g/dL RDW Std Deviation 44.6 (36.4-46.3) fL RDW Coeff of Joseph 13.3 (11.5-14.5) % Plt Count 354 (130-400) K/uL MPV 10.2 (7.4-10.4) fL Immature Gran % (Auto) 0.4 % Neut % (Auto) 76.1 % Lymph % (Auto) 16.7 % Clare % (Auto) 6.7 % Eos % (Auto) 0.0 % Baso % (Auto) 0.1 % Neut # (Auto) 12.26 H (1.4-6.5) K/uL Lymph # (Auto) 2.69 (1.2-3.4) K/uL Clare # (Auto) 1.08 H (0.11-0.59) K/uL Eos # (Auto) 0.00 (0-0.5) K/uL Baso # (Auto) 0.01 (0-0.2) K/uL Immature Gran # (Auto) 0.07 H (0.00-0.02) K/uL Sodium 137 (136-145) mmol/L Potassium 4.0 (3.5-5.1) mmol/L Chloride 104 (98-107) mmol/L Carbon Dioxide 25 (21-32) mmol/L Anion Gap 8.0 (3-11) BUN 11 (7-18) mg/dl Creatinine 0.78 (0.6-1.2) mg/dl Est Cr Clr Drug Dosing 92.9 ml/min Est GFR ( Amer) 96.4 Est GFR (Non-Af Amer) 83.2 BUN/Creatinine Ratio 14.2 (10-20) Glucose 97 (70-99) mg/dl POC Glucose 123 H (70-99) mg/dl Calcium 9.1 (8.5-10.1) mg/dl 11/19/19 11/19/19 11/19/19 Range/Units 20:33 17:16 09:05 WBC (4.8-10.8) K/uL RBC (4.2-5.4) M/uL Hgb (12.0-16.0) g/dL Hct (37-47) % MCV (80-100) fL MCH (25-34) pg MCHC (32-36) g/dL RDW Std Deviation (36.4-46.3) fL RDW Coeff of Joseph (11.5-14.5) % Plt Count (130-400) K/uL MPV (7.4-10.4) fL Immature Gran % (Auto) % Neut % (Auto) % Lymph % (Auto) % Clare % (Auto) % Eos % (Auto) % Baso % (Auto) % Neut # (Auto) (1.4-6.5) K/uL Lymph # (Auto) (1.2-3.4) K/uL Clare # (Auto) (0.11-0.59) K/uL Eos # (Auto) (0-0.5) K/uL Baso # (Auto) (0-0.2) K/uL Immature Gran # (Auto) (0.00-0.02) K/uL Sodium (136-145) mmol/L Potassium (3.5-5.1) mmol/L Chloride (98-107) mmol/L Carbon Dioxide (21-32) mmol/L Anion Gap (3-11) BUN (7-18) mg/dl Creatinine (0.6-1.2) mg/dl Est Cr Clr Drug Dosing ml/min Est GFR ( Amer) Est GFR (Non-Af Amer) BUN/Creatinine Ratio (10-20) Glucose (70-99) mg/dl POC Glucose 136 H 199 H 113 H (70-99) mg/dl Calcium (8.5-10.1) mg/dl
[2019-11-20] MEDS ORDERED: METOPROLOL TARTRATE 25 MG TAB PO SCH (09:00)
[2019-11-20] MEDS ORDERED: FLUTICASONE/VILANTEROL 200/25MCG 14 PUFFS/INHALER INH SCH (09:00)
[2019-11-20] MEDS ORDERED: MULTIVITAMIN TAB PO SCH (09:00)
[2019-11-20] MEDS ORDERED: DULOXETINE HCL 60 MG CAP PO SCH (09:00)
[2019-11-20] MEDS ORDERED: FUROSEMIDE 40 MG TAB PO SCH (09:00)
[2019-11-20] MEDS ORDERED: SPIRONOLACTONE 25 MG TAB PO SCH (09:00)
[2019-11-20] MEDS: INSULIN ASPART 100 UNITS/ML 3 ML PEN SC SCH ×2 (09:16→13:54)
--- NOTE | 2019-11-20 10:26 | Pharmacy Report ---
Pharmacy Glycemic Short Note 2 - Date of Service November 20, 2019 - Glycemic Short BSG Results (Last 24 hours): 11/19/19 11/19/19 11/20/19 17:16 20:33 05:21 Glucose 97 POC Glucose 199 H 136 H 11/20/19 08:11 Glucose POC Glucose 123 H ASSESSMENT: 11/19 * Patient received total of 32 units of insulin, of which 20 were NPH to help cover steroids * Fasting BSG this AM w/in range at 123 mg/dL - hold further long acting insulin as no more steroids ordered * Plan to loosen CF/CR as steroids likely wearing off PLAN FOR INPATIENT GLYCEMIC CONTROL: * Holding outpatient oral diabetes medications * Basal insulin - hold * Bolus insulin * NovoLog per scale ACHS or Q6hrs while NPO * Goal Range: Low 110 mg/dL - High 140 mg/dL * Correction Factor: 25 mg/dL/unit * Nutritional / Prandial insulin per carb ratio of 1 unit per 8 grams CHO consumed PLAN FOR DISCHARGE: * A1C of 6.2% - recommend continuation of home diabetic agents as long as no contraindications present
[2019-11-20] MEDS ORDERED: METFORMIN HCL 850 MG TAB PO SCH (17:00)
--- NOTE | 2019-11-20 19:41 | Discharge Summary ---
Date of Service November 20, 2019 Admission HPI Per Admitting Provider The patient is a 59 year old female who presents with complaints of severe right hip pain and DJD. The patient has failed outpatient conservative treatments to this point which included NSAIDs, IA corticosteroid injection, weight loss program, home exercise/walking program. The patient's pain and limited function have progressed to the point where they severely hinder their activities of daily living and they no longer tolerate exercise programs. They are requesting to proceed with total hip replacement surgery. Principal Diagnosis Right total hip replacement -Right hip DJD Discharge Exam RLE NVSI +EHL/FHL/TA/GS SILT grossly, +2 DP pulse, compartments soft NT, dressing cdi. Constitutional WD/WN, vitals as above Discharge Data Allergies Allergy/AdvReac Type Severity Reaction Status Date / Time tetracycline Allergy Unknown HIVES, SOB Verified 11/19/19 09:04 Consultations 11/20/19 08:00 Consult Case Management - Discharge Planning Routine Procedures Performed Operation Date: 11/19/19 10:50 Actual Procedures p Right Total Hip Arthroplasty Posterior(Right) - Pardeep Guerrero DO Hospital Course (1) Degenerative joint disease of right hip: The patient is a 59 -year-old female who presents with long standing history of severe right hip DJD and failed outpatient conservative treatments. The patient's symptoms have progressed to the point where it has been difficult to perform even normal activities of daily living. I indicated the patient for a right total hip arthroplasty, the risks, benefits and complications of the procedure include but not limited to infection, bleeding, damage to bone, nerves, vessels, surrounding soft tissue, may develop blood clots, loss of function, leg length discrepancy, dislocation, failure of the components, loosening of the components, the need for additional surgery and . The patient wished to proceed with surgery at this time and informed consent was obtained. Hospital Course: On 11/19/19 the patient was taken to the operating room, adequate anesthesia administered and underwent a right total hip arthroplasty. The patient tolerated the procedure well and was taken to the PACU in stable condition. Post-operatively the patient was started on a DVT ppx medication and given appropriate IV antibiotics. Consults were placed to physical therapy, occupational therapy and case management. On POD#1, the patient did well overnight and their pain was well controlled. Labs were drawn and the Hgb was 11.8. The patient progressed well with PT. The patients hospital stay was relatively uneventful and they were deemed stable by the orthopedic team and consultants to be discharged home with HH on 11/20/19. Discharge Instructions: Upon discharge the patient may weight bear as tolerates through their operative extremity. They were instructed to keep the incision clean and dry at all times. The patient may shower but should not submerge the incision, avoid bathing, pools and hot tubes. The patient was given a script for pain medication and should take as instructed. The patient was given a script for DVT ppx 325mg ASA BID and should take as directed. The patient was instructed to not drive or travel for long distances until cleared to do so. If the patient develops any symptoms of fevers, chills, nausea, vomiting, increased redness, swelling, pain or drainage from the surgical site, they should notify the office and/or proceed to the nearest emergency room. The patient should follow up in 10-14 days after surgery for their routine post-operative follow-up appointment and should call the office to confirm the date and time. Status post right total hip arthroplasty -Ancef x24 DVT prophylaxis: SCDs, teds, ASA twice daily Weight-bear as tolerates right lower extremity Posterior hip precautions PT/OT Postoperative x-ray demonstrates a well aligned well fixed prosthesis without evidence of fracture or dislocation A.m. labs - as above, hgb 11.8 DC planning - home with (2) Obesity: In additional to negative effects on overall health, the patient understands that due to their underlying obesity, they are at increased risk for developing the complications listed above. Total Time Total Time Spent Total Time Spent (In Minutes): 30 Discharge Plan Discharge Items Patient Disposition: Home - Home Health Services Reason For Visit: Unilateral Primary Osteoarthrits, Right Hip Discharge Diagnosis: Right total hip replacement Condition on Discharge: Good Activity: Per Instructions section Lifting: Wait until after follow-up appointment Bathing: Keep incision dry Bathing Comment: No bathing, pools or hot tubs Sexual Activity: Wait until after follow-up appointment Exercise/Sports: Wait until after follow-up appointment Weightbearing: Full weightbearing Non-emergency contact: Primary Care Provider and Surgeon Call non-emergency contact if: you have any medication questions, your symptoms worsen, your pain is not controlled, your pain is worsening, your pain is unusual for you, your pain is concerning for you, you have a fever, your temperature is above 101, your wound has increased redness, your wound has increased drainage and your wound pain has increased Follow-up/Referrals: Alicia Holder MD [Primary Care Provider] - Diet: Regular Addtl Attending Provider Instructions: ACTIVITY RECOMMENDATIONS: SELF CARE INSTRUCTIONS AFTER TOTAL HIP REPLACEMENT Until the incision and soft tissues around your hip have healed, there is a possibility that the hip prosthesis could dislocate. A. Observe the following precautions to prevent dislocation: 1. Don't bend your hip greater than 90 degrees. 2. Avoid crossing your legs or ankles while standing or lying. 3. Sit with your feet placed 6 inches apart. 4. When sitting, keep your knees below your hips. Sit on a firm surface, avoid deep, soft chairs and couches. Use an elevated toilet seat in the bathroom. 5. Don't bend over at the waist. Use a long handled shoehorn and a sock aid to help you put on your shoes and socks. A slasher can help you pick pack worker objects that are too high or too low to reach. 6. Keep car riding to a minimum for at least one month after surgery. B. Your balance may be shaky for a while. Use crutches or a walker until directed by your doctor. C. Use hand rails when walking on stairs. D. Wear low heeled shoes with non-slip soles. E. Be sure that your floors are free of things that could trip you - throw rugs, electrical cords, small objects. Avoid wet and waxed floors, especially with crutches and canes. F. Try to walk several times a day with rest periods between. G. Continue with all the exercises taught to you in the hospital. Again, make walking a part of your daily routine. SPECIAL CARE INSTRUCTIONS: VERY IMPORTANT TO READ AND REVIEW A. You may still be at risk for phlebitis and blood clots. 1. Wear surgical stockings (JAVAD hose) for 2 weeks after surgery to improve circulation and reduce swelling. 2. Take Aspirin 325mg twice daily for 4 weeks or as directed by your doctor. This is your blood thinner. 3. High risk patients may be prescribed a stronger blood thinner if necessary. 4. If you are on Coumadin normally, your family doctor/energy engineer should monitor your blood work. Expect a phone call the day of or the day after bloodwork is drawn to adjust your dosage. B. You must take antibiotics before having dental work, bladder, bowel and other surgery. Your doctor will provide you with a permanent card to carry describing precautions. C. Call [facility] if you have a fever, redness or swelling around the incision, cloudy drainage from incision, or sudden increase in pain in your hip, not relieved by your regular pain medication. D. Please call the office at if you have any concerns or questions about your operation or recovery. * YOU MAY SHOWER, NO TUB BATHS UNTIL CLEARED BY YOUR DOCTOR. * WEAR JAVAD HOSE 20 HOURS PER DAY FOR 2 WEEKS. * YOU SHOULD USE A WALKER OR CRUTCHES FOR 2-4 WEEKS. THIS WILL HELP PREVENT STRAIN ON YOUR HIP MUSCLE AND ALLOW IT TO HEAL PROPERLY. YOU MAY WEAN TO A CANE TOLERATED. * MOST PATIENTS WILL HAVE HOME NURSING FOR THERAPY. IF YOU DECIDE TO DO OUTPATIENT PHYSICAL THERAPY, PLEASE SCHEDULE THIS 3 TIMES PER WEEK. *CARMELO incisional vac is a special dressing covering your incision. This dressing provides a sterile dry environment while you are healing. The dressing is to be left in place for 7 days post-operatively. Your home nurse or surgeon will remove. If you develop any redness or blisters or have any questions notify your surgeon immediately. FOLLOW UP VISIT: If appointment is not already scheduled: Please call [facility] to make a follow-up appointment for 2 weeks after your surgery at . Pending Studies at Discharge: No Stand-Alone Forms: [facility], Opioid Pain Management, Smoking Cessation Medications and DC Order Prescriptions: New celecoxib [Celebrex] 200 mg Capsule 200 mg PO BID PRN (Reason: pain/fevers) Qty: 28 RF: 0 acetaminophen 500 mg Tablet 1,000 mg PO Q8 PRN (Reason: pain/fevers) Qty: 90 RF: 0 aspirin [Ecotrin] 325 mg Tablet,Delayed Release (Dr/Ec) 325 mg PO BID Qty: 56 RF: 0 oxycodone 5 mg Tablet 5 mg PO Q6H MDD 4 PRN (Reason: pain) Qty: 30 RF: 0 sennosides [Senokot] 8.6 mg Tablet 17.2 mg PO HS PRN (Reason: constipation) Qty: 28 RF: 0 Continued multivitamin [Multiple Vitamins] Tablet 1 tab PO QAM RF: 0 albuterol sulfate 0.63 mg/3 mL Solution For Nebulization 0.63 mg INHALATION UD PRN (Reason: Shortness Of Breath) RF: 0 gabapentin 400 mg Capsule 2 tab PO TID RF: 0 metformin 850 mg Tablet 850 mg PO BID RF: 0 spironolactone 25 mg Tablet 25 mg PO QAM RF: 0 calcium carbonate [Calcium 600] 600 mg calcium (1,500 mg) Tablet 600 mg PO QAM RF: 0 simvastatin [Zocor] 20 mg Tablet 20 mg PO HS RF: 0 levothyroxine [Levo-T] 150 mcg Tablet 150 mcg PO QAM RF: 0 fluticasone propion-salmeterol [Advair Diskus] 500-50 mcg/dose Blister With Device 1 inh INHALATION BID RF: 0 calcium polycarbophil [Fiber (calcium polycarbophil)] 625 mg Tablet 625 mg PO QAM RF: 0 nitroglycerin 0.4 mg Tablet, Sublingual 1 tab Sublingual UD PRN (Reason: Chest Pain) RF: 0 docusate sodium [Colace] 100 mg Capsule 100 mg PO QAM RF: 0 montelukast [Singulair] 10 mg Tablet 10 mg PO HS RF: 0 furosemide 20 mg Tablet 2 tab PO QAM RF: 0 polyethylene glycol 3350 [Miralax] 17 gram/dose Powder 1 dose PO QAM RF: 0 albuterol sulfate [Ventolin HFA] 90 mcg/actuation Hfa Aerosol Inhaler 2 puff INHALATION UD PRN (Reason: Shortness Of Breath) RF: 0 fluticasone propionate [Flonase Allergy Relief] 50 mcg/actuation [place],Suspension 2 spray INTRANASAL QAM RF: 0 duloxetine [Cymbalta] 60 mg Capsule,Delayed Release(Dr/Ec) 60 mg PO QAM RF: 0 metoprolol tartrate 25 mg Tablet 25 mg PO QAM RF: 0 amitriptyline 50 mg Tablet 50 mg PO HS RF: 0 Ozempic 0.25 mg or 0.5 mg(2 mg/1.5 mL) Pen Injector 0.25 mg SUBCUT WK RF: 0 Discontinued celecoxib [Celebrex] 200 mg Capsule 200 mg PO BID Qty: 60 RF: 0 acetaminophen 500 mg capsule 500 mg PO Q6H PRN (Reason: pain) Qty: 60 RF: 0 Discharge Orders: Discharge Order (Routine); Ordered 11/20/19 Ordered By: Pardeep Dior/Other Patient Handouts: Managing Type 2 Diabetes Admission Data Admit Date/Time: 11/19/19 13:57 Attending Provider: Pardeep Guerrero Admit Provider: Pardeep Guerrero Primary Care Provider: Alicia Holder Other Providers: [facility],Home Health Other Interventions: Discharge Summary Assessment (RN) Last Done: 11/20/19 13:37
[2019-11-20] MEDS ORDERED: CeleBREX 200 MG CAP PO SCH (21:00)
== END 2019-11-20 14:55 | disposition home health service (06) | DRG 470 ==
LOC: ASU 08:45 → 3E 13:57

== ENCOUNTER 2021-07-19 10:51 | Inpatient (IN) ==
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
--- NOTE | 2021-07-19 11:50 | XRay Report ---
XR chest 1V portable HISTORY: weak, shortness of breath. Bradycardia. COMPARISON: Chest 10/24/2019. FINDINGS: Cardiac silhouette is mildly enlarged. There is mild chronic interstitial thickening, uncha nged. No new focal lung consolidations to suggest pneumonia. No pleural fusions. No pneumothorax. The re are low lung volumes. IMPRESSION: Mild cardiomegaly and chronic interstitial thickening. ACT 112: Negative or not required by law. Electronically signed by: Roque Madrid M.D. 07/19/2021 11:49 AM
[2021-07-19 11:52] LABS: Basophils # (auto) 0.04 K/uL (0-0.2); Basophils % (auto) 0.4 %; Eosinophils # (auto) 0.28 K/uL (0-0.5); Eosinophils % (auto) 3.1 %; Hematocrit (blood only) 38.1 % (37-47); Hemoglobin 12.2 g/dL (12.0-16.0); Immature Granulocytes # (auto) 0.01 K/uL (0.00-0.02); Immature Granulocytes % (auto) 0.1 %; Lymphocytes # (auto) 3.23 K/uL (1.2-3.4); Lymphocytes % (auto) 35.8 %; Mean Corpuscular Hemoglobin 29.8 pg (25-34); Mean Corpuscular Volume 93.2 fL (80-100); Mean Platelet Volume 10.4 fL (7.4-10.4); Monocytes # (auto) 0.41 K/uL (0.11-0.59); Monocytes % (auto) 4.5 %; Neutrophils # (auto) 5.06 K/uL (1.4-6.5); Neutrophils % (auto) 56.1 %; Platelet Count 318 K/uL (130-400); Red Blood Count 4.09 M/uL (4.2-5.4); White Blood Count 9.03 K/uL (4.8-10.8)
[2021-07-19 11:57] LABS: Prothrombin Time 10.5 Seconds (9.0-12.0)
[2021-07-19 12:18] LABS: BUN Creatinine Ratio 22.4 (10-20); Bilirubin Direct 0.1 mg/dl (0-0.2); Bilirubin,Total 0.4 mg/dl (0.2-1.0); Calcium 9.1 mg/dl (8.5-10.1); Creatinine Clr Calc Pharmacy 106.3 ml/min; Est GFR (African American) 110.7 ml/min; Est GFR (Non-African American) 95.5 ml/min; Magnesium 1.7 mg/dl (1.7-2.4); Potassium 4.6 mmol/L (3.5-5.1); Total Protein 6.4 gm/dl (6.0-8.3)
[2021-07-19 12:22] LABS: Troponin I High Sensitivity 2.9 pg/ml (0-14)
[2021-07-19 12:43] LABS: Appearance Urine Clear (Clear); Bilirubin Urine Negative (Negative); Blood Urine Negative (Negative); Color Urine Dark Yellow; Glucose Urine UA Negative (Negative); Ketones Urine Trace (Negative); Leukocyte Esterase Urine Negative (Negative); Nitrite Urine Negative (Negative); Protein Urine Negative (Negative); Specific Gravity Urine 1.032 (1.000-1.030); Urobilinogen Urine Negative (Negative); pH Urine 6.5 (4.5-7.5)
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
[2021-07-19] MEDS ORDERED: SODIUM CHLORIDE 0.9% 1000ML 1,000 ML IV SCH (14:45)
[2021-07-19 15:20] LABS: Lyme Ab IgG w/WB Rflx Negative (Negative)
[2021-07-19 15:22] LABS: Lyme Ab IgM w/WB Rflx Negative (Negative)
[2021-07-19] MEDS ORDERED: MAGNESIUM HYDROXIDE SUSP 30 ML UDC PO PRN (16:43)
[2021-07-19] MEDS ORDERED: GLUCAGON FOR INJ 1 MG VIAL SQ PRN (16:43)
[2021-07-19] MEDS ORDERED: GLUCOSE 10 TABS/TUBE PO PRN (16:43)
[2021-07-19] MEDS ORDERED: POLYETHYLENE (MIRALAX) 17 GM PACK PO PRN (16:43)
[2021-07-19] MEDS ORDERED: ALUMINUM/MAGNESIUM SUSP 30 ML UDC PO PRN (16:43)
[2021-07-19] MEDS ORDERED: GLUCOSE 40% GEL 15 GM TUBE PO PRN (16:43)
[2021-07-19] MEDS ORDERED: ONDANSETRON INJ 2 MG/ML 2 ML VIAL IV PRN (16:43)
[2021-07-19] MEDS ORDERED: ALBUTEROL HFA 8 GM INHALER INH PRN (16:43)
[2021-07-19] MEDS ORDERED: ACETAMINOPHEN 325 MG TAB PO PRN (16:43)
[2021-07-19] MEDS ORDERED: CARBOHYDRATES FOR HYPOGLYCEMIA PO PRN (16:43)
[2021-07-19] MEDS ORDERED: DEXTROSE 50% 50 ML SYRINGE IV PRN (16:43)
[2021-07-19] MEDS: INSULIN ASPART PER UNIT SC SCH ×2 (17:00→21:00)
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
[2021-07-19] MEDS: GABAPENTIN 400 MG CAP PO SCH (21:06)
[2021-07-19] MEDS: CeleBREX 200 MG CAP PO SCH (21:07)
[2021-07-19] MEDS: AMITRIPTYLINE HCL 25 MG TAB PO SCH (21:08)
[2021-07-19] MEDS: MONTELUKAST SODIUM 10 MG TABLET PO SCH (21:09)
[2021-07-19] MEDS ORDERED: ATROPINE SULFATE 0.1 MG/ML 5ML SYR IV ONE (21:24)
[2021-07-19] MEDS ORDERED: ATROPINE SULFATE 0.1 MG/ML 10ML SYR IV ONE (21:27)
[2021-07-20] MEDS: HYDROCORTISONE SOD 100 MG in SYRINGE 0 ML IV SCH ×4 (01:49→20:23)
[2021-07-20] MEDS ORDERED: LEVOTHYROXINE SODIUM 200 MCG in SYRINGE 0 ML IV ONE (02:00)
[2021-07-20] MEDS: LIOTHYRONINE SODIUM 25 MCG TAB PO SCH ×3 (02:24→20:25)
[2021-07-20] MEDS ORDERED: Nursing to Pharmacy Communication SCH (03:15)
[2021-07-20] MEDS ORDERED: INSULIN ASPART PER UNIT SC SCH (06:00)
[2021-07-20] MEDS ORDERED: LEVOTHYROXINE SODIUM 150 MCG TABLET PO SCH (06:00)
[2021-07-20 06:33] LABS: Basophils # (auto) 0.02 K/uL (0-0.2); Basophils % (auto) 0.3 %; Eosinophils # (auto) 0.11 K/uL (0-0.5); Eosinophils % (auto) 1.6 %; Hematocrit (blood only) 39.4 % (37-47); Hemoglobin 12.6 g/dL (12.0-16.0); Immature Granulocytes # (auto) 0.02 K/uL (0.00-0.02); Immature Granulocytes % (auto) 0.3 %; Lymphocytes # (auto) 2.09 K/uL (1.2-3.4); Lymphocytes % (auto) 29.8 %; Mean Corpuscular Volume 93.8 fL (80-100); Mean Platelet Volume 10.3 fL (7.4-10.4); Monocytes # (auto) 0.17 K/uL (0.11-0.59); Monocytes % (auto) 2.4 %; Neutrophils # (auto) 4.61 K/uL (1.4-6.5); Neutrophils % (auto) 65.6 %; Platelet Count 291 K/uL (130-400); RDW Coefficient of Variation 14.2 % (11.5-14.5); RDW Standard Deviation 48.7 fL (36.4-46.3); White Blood Count 7.02 K/uL (4.8-10.8)
[2021-07-20 07:14] LABS: Albumin Globulin Ratio 1.7 (0.9-2); BUN Creatinine Ratio 18.5 (10-20); Bilirubin,Total 0.4 mg/dl (0.2-1.0); Calcium 8.9 mg/dl (8.5-10.1); Creatinine Clr Calc Pharmacy 109.6 ml/min; Est GFR (African American) 111.8 ml/min; Est GFR (Non-African American) 96.5 ml/min; Globulin 2.3 gm/dl (2.5-4.0); Total Protein 6.3 gm/dl (6.0-8.3)
--- NOTE | 2021-07-20 07:51 | Communication Note ---
Date of Service: July 19, 2021 Patient had an episode when she got up for bathroom. At one point hear rates were in 20's. tsh came back 60. Free t4<0.25. Discussed with Endocrinology [facility] at [facility] . recommended to check random cortisol. To give iv hydrocortisone 100mg tid, iv synthyroid 200mcg one dose now after giving hydrocortisone and then iv synthyroid 140mcg daily until levels are up. To check TSh, free t4 and free t3 levels q 48hrs. Also recommended iv T3 but our pharmacy only has po Cytomel so recommended to give cytomel 25mcg po bid for 3-5 days. Notified Am providers. Thank you
[2021-07-20] MEDS: FLUTICASONE/VILANTEROL 200/25MCG 14 PUFFS/INHALER INH SCH (08:42)
[2021-07-20] MEDS: FLUTICASONE PROPIONATE NA SPR 16 GM BTL SCH (08:43)
[2021-07-20] MEDS: estradioL 1 MG TAB PO SCH (08:44)
[2021-07-20] MEDS: PANTOprazole 40 MG TAB PO SCH (08:44)
[2021-07-20] MEDS: GABAPENTIN 400 MG CAP PO SCH ×3 (08:44→20:24)
[2021-07-20] MEDS: SPIRONOLACTONE 12.5 MG TAB PO SCH (08:44)
[2021-07-20] MEDS: DULoxetine HCL 60 MG CAP PO SCH (08:45)
[2021-07-20] MEDS: ESCITALOPRAM OXALATE 20 MG TAB PO SCH (08:45)
[2021-07-20] MEDS: CeleBREX 200 MG CAP PO SCH ×2 (08:45→20:20)
[2021-07-20] MEDS: ASPIRIN 81 MG ECTAB PO SCH (08:45)
[2021-07-20] MEDS: ATORVASTATIN 40 MG TAB PO SCH (08:45)
[2021-07-20] MEDS: FUROSEMIDE 40 MG TAB PO SCH (08:45)
[2021-07-20] MEDS: CALCIUM POLYCARBOPHIL 625MG TAB PO SCH (08:45)
[2021-07-20] MEDS: CALCIUM CARBONATE 1250MG TAB PO SCH (08:46)
[2021-07-20 08:48] LABS: Estimated Average Glucose 126 mg/dl
[2021-07-20] MEDS: MULTIVITAMIN TAB PO SCH (08:48)
[2021-07-20] MEDS: LEVOTHYROXINE SODIUM IV SCH (09:06)
[2021-07-20] MEDS: INSULIN ASPART PER UNIT SC SCH ×3 (12:41→20:34)
--- NOTE | 2021-07-20 14:22 | Cardiology Progress Note ---
Date of Service July 20, 2021 Assessment & Plan (1) Symptomatic bradycardia: (2) Hypothyroidism: (3) Hypertension: (4) Palpitation: Plan: Continue thyroid replacement and corticosteroids per direction of endocrinology. Beta-deya therapy will remain on hold. Her heart rate has improved. No indication for transvenous pacemaker or permanent pacemaker placement at this time. Continue to monitor telemetry. Admission and Anticipated Discharge Date Admission Date: July 20, 2021 Subjective Patient seen examined the bedside. Heart rate improving this morning. Beta- deya on hold. TSH found to be elevated. IV corticosteroids, IV levothyroxine, and Cytomel recommended by endocrinology. Patient continues to note intermittent lightheadedness. Blood pressure remains stable. Review of Systems Review of Systems: All systems reviewed & are unremarkable except as noted in Subjective Physical Exam Constitutional: well nourished; no acute distress Respiratory: normal respiratory effort; no respiratory distress, no labored breathing and no retractions Auscultation: lungs clear to auscultation bilaterally; no crackles, no rales, no rhonchi and no wheezes Cardiovascular: Rate/Rhythm: regular rate, regular rhythm and + bradycardic Heart Sounds: normal S1 and normal S2; no murmur Vessels: no JVD, no carotid bruit and no cranial bruit Extremities: no edema Gastrointestinal (Abdomen): Inspection/Auscultation: normal bowel sounds; abdomen not distended Neurologic: CN's II-XI intact bilaterally and moves all extremities; no focal motor deficits Motor/Sensory: no tremor Psychiatric: A+Ox3, euthymic affect Results & Data ([facility]) Vital Signs (Past 12 Hours) Vital Signs Temp Pulse Pulse Resp BP Pulse Ox 07/20/21 11:17 36.7 C 67 18 137/82 95 07/20/21 08:38 36.7 C 43 L 17 111/66 95 07/20/21 07:08 48 L 07/20/21 04:01 36.6 C 59 L 18 106/64 98
--- NOTE | 2021-07-20 17:09 | Hospitalist Progress Note ---
Date of Service July 20, 2021 Assessment & Plan (1) Symptomatic bradycardia: (2) Dizziness: (3) DOMINGUEZ (dyspnea on exertion): (4) DM type 2 (diabetes mellitus, type 2): (5) Hypertension: Plan: per This is a 60-year-old female who has a significant past medical history of T2DM, HLD, HTN, COPD, history of tobacco abuse, hypothyroidism, history of bilateral TKA, history of right hip replacement, history of lumbar spine surgery, postlaminectomy syndrome who presents to ED at the referral of preop testing due to bradycardia. Symptomatic bradycardia, secondary to Hypothyroidism Dizziness DOMINGUEZ Admit to telemetry Consult cardiology TSH and Lyme screen pending Obtain echocardiogram Repeat high-sensitivity troponin, if negative no need to trend Daily EKG Hold metoprolol last cardiac cath 2016 revealed normal coronaries Is to undergo L hip replacement at end of month with Dr. Jordan Pt previously on high doses of metoprolol and per documentation was decreased due to bradycardia 07/20 TSH 62 Free T4 < 0.25 started on IV Levothyroxine, PO T3, IV Hydrocortisone direction per Dr. Gillette's communication note T2DM Last A1c 6.2 on 03/03/2021 a1c 6.0 NovoLog per protocol HTN Lower extremity edema Hold metoprolol Continue Lasix and Aldactone HLD Continue statin COPD Former tobacco abuse Continue daily Advair As needed albuterol no acute exac Hypothyroidism Continue levothyroxine TSH pending DVT ppx: SCD/TEDS for now in event procedure required, if no procedure would recommend initiating chemical prophylaxis Dispo: PCU PCP: Dr. Nnacy Forrest (Previously Dr. Holder who left Practice) FULL CODE Admission and Anticipated Discharge Date Admission Date: July 20, 2021 Subjective ff up for bradycardia, etc seen resting in bed, comfortable sitting up states she feels somewhat better today started on IV levothyroxine and hydrocortisone last night no other symptoms Review of Systems Review of Systems: all noted and negative except for above Physical Exam Physical Exam: General- oriented x 3, not in distress, speaks in sentences with no effort or accessory muscle use Eyes- anicteric Neck- no JVD Lungs- clear BS bilaterally, no rales/wheezes Heart- HR 50s, regular rhythm; no murmurs Abdomen- normal bowel sounds, nondistended, soft, nontender Extremities- no pretibial edema, no calf tenderness Neuro- alert, oriented x 3; no gross focal neurologic deficits Skin- warm & dry Results & Data Results & Data ([facility]) Vital Signs (Past 12 Hours) Vital Signs Temp Pulse Pulse Resp BP Pulse Ox 07/20/21 16:07 36.4 C L 68 16 140/74 96 07/20/21 14:56 71 07/20/21 11:17 36.7 C 67 18 137/82 95 07/20/21 08:38 36.7 C 43 L 17 111/66 95 07/20/21 07:08 48 L all noted and reviewed including below
[2021-07-20] MEDS ORDERED: KETOROLAC TROMETHAMINE 15 MG/ML VIAL IV ONE (20:11)
[2021-07-20] MEDS: AMITRIPTYLINE HCL 25 MG TAB PO SCH (20:25)
[2021-07-20] MEDS: MONTELUKAST SODIUM 10 MG TABLET PO SCH (20:26)
[2021-07-21] MEDS: INSULIN ASPART PER UNIT SC SCH ×4 (08:05→21:35)
[2021-07-21] MEDS: MULTIVITAMIN TAB PO SCH (08:33)
[2021-07-21] MEDS: PANTOprazole 40 MG TAB PO SCH (08:33)
[2021-07-21] MEDS: FLUTICASONE PROPIONATE NA SPR 16 GM BTL SCH (08:33)
[2021-07-21] MEDS: GABAPENTIN 400 MG CAP PO SCH ×3 (08:33→20:44)
[2021-07-21] MEDS: HYDROCORTISONE SOD 100 MG in SYRINGE 0 ML IV SCH (08:33)
[2021-07-21] MEDS: FLUTICASONE/VILANTEROL 200/25MCG 14 PUFFS/INHALER INH SCH (08:33)
[2021-07-21] MEDS: SPIRONOLACTONE 12.5 MG TAB PO SCH (08:33)
[2021-07-21] MEDS: CeleBREX 200 MG CAP PO SCH ×2 (08:35→20:44)
[2021-07-21] MEDS: LIOTHYRONINE SODIUM 25 MCG TAB PO SCH ×2 (08:35→20:44)
[2021-07-21] MEDS: FUROSEMIDE 40 MG TAB PO SCH (08:35)
[2021-07-21] MEDS: ESCITALOPRAM OXALATE 20 MG TAB PO SCH (08:35)
[2021-07-21] MEDS: DULoxetine HCL 60 MG CAP PO SCH (08:35)
[2021-07-21] MEDS: estradioL 1 MG TAB PO SCH (08:35)
[2021-07-21] MEDS: CALCIUM POLYCARBOPHIL 625MG TAB PO SCH (08:36)
[2021-07-21] MEDS: ATORVASTATIN 40 MG TAB PO SCH (08:36)
[2021-07-21] MEDS: ASPIRIN 81 MG ECTAB PO SCH (08:36)
[2021-07-21] MEDS: CALCIUM CARBONATE 1250MG TAB PO SCH (08:36)
[2021-07-21] MEDS: LEVOTHYROXINE SODIUM IV SCH (09:47)
[2021-07-21 10:41] LABS: Thyroid Stimulating Hormone 17.762 uIu/ml (0.300-4.500)
[2021-07-21 10:43] LABS: T4 Free Thyroxine 0.55 ng/dl (0.61-1.60)
--- NOTE | 2021-07-21 11:25 | Cardiology Progress Note ---
Date of Service July 21, 2021 Assessment & Plan (1) Symptomatic bradycardia: (2) Hypothyroidism: (3) Hypertension: (4) Palpitation: Plan: Heart rate improving with treatment of hypothyroidism and withholding beta- deya therapy. No indication for temporary transvenous pacing or permanent pacemaker currently. Continue thyroid replacement and corticosteroids per direction of endocrinology. Continue to monitor telemetry. Admission and Anticipated Discharge Date Admission Date: July 20, 2021 Subjective Patient seen examined the bedside. Intermittent positional lightheadedness improving. Occasional bradycardia noted on telemetry during rest and sleep. Heart rate improving over the past 24 hours. No significant pauses, or heart block. Review of Systems Review of Systems: All systems reviewed & are unremarkable except as noted in Subjective Physical Exam Constitutional: well nourished; no acute distress Respiratory: normal respiratory effort; no respiratory distress, no labored breathing and no retractions Auscultation: lungs clear to auscultation bilaterally; no crackles, no rales, no rhonchi and no wheezes Cardiovascular: Rate/Rhythm: regular rate and regular rhythm Heart Sounds: normal S1 and normal S2; no murmur Vessels: no JVD, no carotid bruit and no cranial bruit Extremities: no edema Gastrointestinal (Abdomen): Inspection/Auscultation: normal bowel sounds; abdomen not distended Percussion/Palpation: abdomen soft; abdomen nontender, no guarding and abdomen not rigid Neurologic: CN's II-XI intact bilaterally and moves all extremities; no focal motor deficits Motor/Sensory: no tremor Psychiatric: A+Ox3, euthymic affect Results & Data ([facility]) Vital Signs (Past 12 Hours) Vital Signs Temp Pulse Pulse Resp BP Pulse Ox 07/21/21 07:28 36.8 C 81 18 133/79 91 07/21/21 04:19 36.5 C 70 18 113/72 98 07/21/21 00:00 64
[2021-07-21] MEDS: oxyCODONE/ACETAMINOPHEN 5mg/325mg TAB PO PRN ×2 (13:27→20:47)
--- NOTE | 2021-07-21 13:54 | Electrocardiogram Report ---
Test Reason : Blood Pressure : / mmHG Vent. Rate : 043 BPM Atrial Rate : 043 BPM P-R Int : 162 ms QRS Dur : 084 ms QT Int : 468 ms P-R-T Axes : 043 019 019 degrees QTc Int : 395 ms Marked sinus bradycardia Low voltage QRS Cannot rule out Anterior infarct , age undetermined Abnormal ECG When compared with ECG of 19-JUL-2021 10:44, (unconfirmed) No significant change was found Confirmed by Favio Russell ([id number]) on 07/21/2021 1:54:18 PM Referred By: ED Confirmed By:Favio Russell
--- NOTE | 2021-07-21 15:39 | Electrocardiogram Report ---
Test Reason : Blood Pressure : / mmHG Vent. Rate : 043 BPM Atrial Rate : 043 BPM P-R Int : 152 ms QRS Dur : 096 ms QT Int : 504 ms P-R-T Axes : 043 038 041 degrees QTc Int : 425 ms Marked sinus bradycardia with sinus arrhythmia Low voltage QRS Nonspecific ST and T wave abnormality Abnormal ECG When compared with ECG of 19-JUL-2021 11:13, (unconfirmed) No significant change was found Confirmed by Favio Russell ([id number]) on 07/21/2021 3:39:10 PM Referred By: REFERRED SELF Confirmed By:Favio Russell
--- NOTE | 2021-07-21 16:16 | Hospitalist Progress Note ---
Date of Service July 21, 2021 Assessment & Plan (1) Symptomatic bradycardia: (2) Dizziness: (3) DOMINGUEZ (dyspnea on exertion): (4) DM type 2 (diabetes mellitus, type 2): (5) Hypertension: Plan: Patient is a 60 yr female with H/O DM II, HLD, HTN, COPD, history of tobacco abuse, hypothyroidism, history of bilateral TKA, history of right hip replacement, history of lumbar spine surgery, postlaminectomy syndrome who presents to ED at the referral of preop testing due to bradycardia. Symptomatic bradycardia, secondary to Hypothyroidism Dizziness DOMINGUEZ Negative Lyme screen -ECHO: Left ventricle systolic function is normal. EF 60 to 65%. Mild concentric LVH. No significant valvular pathology. No indication for pacemaker placement currently Avoid AV mike blocking agents--Hold Metoprolol Continue Levothyroxine replacement and corticosteroids Appreciate Endocrinology input Appreciate Cardiology Input Planned to undergo L hip replacement at end of month with Dr. Jordan Pain Control Severe Hypothyroidism TSH 62>>17.7 Free T4 < 0.25>>0.55 Free T3 Normal Appreciate Endocrinology Input (: discussed on 07/21/21) Continue IV levothyroxine for now Plan to transition to p.o. levothyroxine 175 mcg p.o. daily as able Decrease IV hydrocortisone to 50 mg IV twice daily. Plan to transition to p.o. hydrocortisone 20 mg QAM, 10 mg QPM (for 2 days) if remains stable for next 24 hours and then continue taper down by half dose to continue for another couple of days and then discontinue If concern for adrenal insufficiency, plan to discharge on hydrocortisone 15 mg p.o. QAM and 5mg QPM and taper as outpatient Continue Cytomel to complete 5 day course Needs follow up with Endocrinology upon discharge Repeat thyroid function Q48H DM II Last A1c 6.2 on 03/03/2021 HbA1C 6.0 NovoLog per protocol HTN Lower extremity edema Hold metoprolol Continue Lasix and Aldactone HLD Continue statin COPD Former tobacco abuse Continue daily Advair As needed albuterol DVT Px: Heparin SQ Code Status FULL CODE Admission and Anticipated Discharge Date Admission Date: July 20, 2021 Subjective Patient is seen and examined at bedside States having dizziness associated with nausea this morning Intermittently bradycardic on monitor Discussed with endocrinology today Denies any chest pain, shortness of breath, abdominal pain Offers no other complaints Review of Systems Review of Systems: All systems reviewed & are unremarkable except as noted in Subjective Physical Exam Physical Exam: Physical Exam: Vitals signs as noted above General Appearance:Obese, no apparent distress Head: normocephalic, Atraumatic Eyes: normal inspection, EOMI Neck: supple, Trachea midline Respiratory/Chest: Normal breath sounds, CTA, No accessory muscle use Cardiovascular: S1, S2, No murmur Abdomen/GI:Soft, Non tender, Bowel sounds present Extremities/Musculoskeletal:normal inspection, no edema Neurologic/Psych:AAOX3, grossly no focal neurological deficits Skin: normal color, warm Results & Data Results & Data ([facility]) Vital Signs (Past 12 Hours) Vital Signs Temp Pulse Resp BP Pulse Ox 07/21/21 15:49 37.1 C 70 18 134/66 98 07/21/21 11:27 36.9 C 51 L 18 144/76 H 95 07/21/21 07:28 36.8 C 81 18 133/79 91 07/21/21 04:19 36.5 C 70 18 113/72 98
[2021-07-21] MEDS: MONTELUKAST SODIUM 10 MG TABLET PO SCH (20:44)
[2021-07-21] MEDS: AMITRIPTYLINE HCL 25 MG TAB PO SCH (20:44)
[2021-07-21] MEDS: HEPARIN SOD 5,000 UNIT/0.5 ML VIAL SQ SCH (20:45)
[2021-07-21] MEDS: HYDROCORTISONE SOD 50 MG in SYRINGE 0 ML IV SCH (20:47)
[2021-07-22] MEDS: oxyCODONE HCL IR 5 MG TAB (IMMEDIATE RELEASE) PO PRN ×3 (03:03→20:09)
[2021-07-22] MEDS: MoRPHine SULFATE 4 MG/ML 1 ML CARP\\VIAL IV PRN ×2 (04:02→12:08)
[2021-07-22] MEDS ORDERED: LEVOTHYROXINE SODIUM 75 MCG TABLET PO SCH (06:00)
[2021-07-22 07:06] LABS: BUN Creatinine Ratio 22.2 (10-20); Calcium 8.9 mg/dl (8.5-10.1); Creatinine Clr Calc Pharmacy 110.7 ml/min; Est GFR (Non-African American) 97.5 ml/min; Magnesium 1.9 mg/dl (1.7-2.4); Potassium 3.7 mmol/L (3.5-5.1)
[2021-07-22] MEDS: estradioL 1 MG TAB PO SCH (08:18)
[2021-07-22] MEDS: INSULIN ASPART PER UNIT SC SCH ×4 (08:18→21:58)
[2021-07-22] MEDS: SPIRONOLACTONE 12.5 MG TAB PO SCH (08:18)
[2021-07-22] MEDS: MULTIVITAMIN TAB PO SCH (08:18)
[2021-07-22] MEDS: HEPARIN SOD 5,000 UNIT/0.5 ML VIAL SQ SCH ×2 (08:19→20:10)
[2021-07-22] MEDS: PANTOprazole 40 MG TAB PO SCH (08:19)
[2021-07-22] MEDS: ESCITALOPRAM OXALATE 20 MG TAB PO SCH (08:19)
[2021-07-22] MEDS: CALCIUM POLYCARBOPHIL 625MG TAB PO SCH (08:19)
[2021-07-22] MEDS: GABAPENTIN 400 MG CAP PO SCH ×3 (08:19→20:12)
[2021-07-22] MEDS: ATORVASTATIN 40 MG TAB PO SCH (08:19)
[2021-07-22] MEDS: LIOTHYRONINE SODIUM 25 MCG TAB PO SCH ×2 (08:19→20:11)
[2021-07-22] MEDS: FUROSEMIDE 40 MG TAB PO SCH (08:19)
[2021-07-22] MEDS: CeleBREX 200 MG CAP PO SCH ×2 (08:19→20:12)
[2021-07-22] MEDS: CALCIUM CARBONATE 1250MG TAB PO SCH (08:19)
[2021-07-22] MEDS: ASPIRIN 81 MG ECTAB PO SCH (08:19)
[2021-07-22] MEDS: DULoxetine HCL 60 MG CAP PO SCH (08:20)
[2021-07-22] MEDS: FLUTICASONE PROPIONATE NA SPR 16 GM BTL SCH (08:20)
[2021-07-22] MEDS: FLUTICASONE/VILANTEROL 200/25MCG 14 PUFFS/INHALER INH SCH (08:20)
[2021-07-22] MEDS: HYDROCORTISONE SOD 50 MG in SYRINGE 0 ML IV SCH ×2 (08:21→20:10)
[2021-07-22] MEDS: LEVOTHYROXINE SODIUM IV SCH (10:09)
--- NOTE | 2021-07-22 11:47 | Electrocardiogram Report ---
Test Reason : Blood Pressure : / mmHG Vent. Rate : 038 BPM Atrial Rate : 038 BPM P-R Int : 148 ms QRS Dur : 100 ms QT Int : 462 ms P-R-T Axes : 040 042 036 degrees QTc Int : 367 ms Marked sinus bradycardia with Premature atrial complexes Nonspecific T wave abnormality Abnormal ECG When compared with ECG of 20-JUL-2021 05:47, (unconfirmed) QT has shortened Confirmed by Favio Russell ([id number]) on 07/22/2021 11:47:27 AM Referred By: REFERRED SELF Confirmed By:Favio Russell
--- NOTE | 2021-07-22 14:39 | Cardiology Progress Note ---
Date of Service July 22, 2021 Assessment & Plan (1) Symptomatic bradycardia: (2) Hypothyroidism: (3) Hypertension: (4) Palpitation: Plan: Patient's heart rate within normal range with treatment of hypothyroidism and withholding beta-deya therapy. Isolated recurrent episode of bradycardia occurring during sleep at approximately 12:30 PM. No indication for temporary transvenous pacing or permanent pacemaker currently. Continue thyroid replacement and corticosteroids per direction of endocrinology. Continue to monitor telemetry. Admission and Anticipated Discharge Date Admission Date: July 20, 2021 Subjective Patient seen and examined at the bedside. Continues to note lightheadedness with positional change and ambulation. No bradycardia associated with current symptoms. At approximately 1230 today her heart rate decreased to 38 bpm during sleep. Otherwise, no recurrent bradycardia on telemetry. Most recent TSH improving. Denies chest pain or shortness of breath. Review of Systems Review of Systems: All systems reviewed & are unremarkable except as noted in Subjective Physical Exam Constitutional: well nourished; no acute distress Respiratory: normal respiratory effort; no respiratory distress, no labored breathing and no retractions Auscultation: lungs clear to auscultation bilaterally; no crackles, no rales, no rhonchi and no wheezes Cardiovascular: Rate/Rhythm: regular rate and regular rhythm Heart Sounds: normal S1 and normal S2; no murmur Vessels: no JVD, no carotid bruit and no cranial bruit Extremities: no edema Gastrointestinal (Abdomen): Inspection/Auscultation: normal bowel sounds; abdomen not distended Percussion/Palpation: abdomen soft; abdomen nontender, no guarding and abdomen not rigid Neurologic: CN's II-XI intact bilaterally and moves all extremities; no focal motor deficits Motor/Sensory: no tremor Psychiatric: A+Ox3, euthymic affect Results & Data ([facility]) Vital Signs (Past 12 Hours) Vital Signs Temp Pulse Resp BP Pulse Ox 07/22/21 11:33 36.9 C 92 H 18 141/80 H 97 07/22/21 07:42 36.8 C 77 18 148/80 H 98
--- NOTE | 2021-07-22 17:31 | Hospitalist Progress Note ---
Date of Service July 22, 2021 Assessment & Plan (1) Symptomatic bradycardia: (2) Dizziness: (3) DOMINGUEZ (dyspnea on exertion): (4) DM type 2 (diabetes mellitus, type 2): (5) Hypertension: Plan: Patient is a 60 yr female with H/O DM II, HLD, HTN, COPD, history of tobacco abuse, hypothyroidism, history of bilateral TKA, history of right hip replacement, history of lumbar spine surgery, postlaminectomy syndrome who presents to ED at the referral of preop testing due to bradycardia. Symptomatic bradycardia, secondary to Hypothyroidism Dizziness DOMINGUEZ Negative Lyme screen -ECHO: Left ventricle systolic function is normal. EF 60 to 65%. Mild concentric LVH. No significant valvular pathology. No indication for pacemaker placement currently Avoid AV mike blocking agents--Hold Metoprolol Continue Levothyroxine replacement and corticosteroids Appreciate Endocrinology input Appreciate Cardiology Input Slowly improving Planned to undergo L hip replacement at end of month with Dr. Jordan Pain Control Severe Hypothyroidism TSH 62>>17.7 Free T4 < 0.25>>0.55 Free T3 Normal Appreciate Endocrinology Input (: discussed on 07/21/21) Continue IV levothyroxine for now Plan to transition to p.o. levothyroxine 175 mcg p.o. daily as able Decrease IV hydrocortisone to 50 mg IV twice daily. Plan to transition to p.o. hydrocortisone 20 mg QAM, 10 mg QPM (for 2 days) if remains stable for next 24 hours and then continue taper down by half dose to continue for another couple of days and then discontinue If concern for adrenal insufficiency, plan to discharge on hydrocortisone 15 mg p.o. QAM and 5mg QPM and taper as outpatient Continue Cytomel to complete 5 day course Needs follow up with Endocrinology upon discharge Recheck thyroid function tomorrow Titrate down steroids tomorrow if remains stable DM II Last A1c 6.2 on 03/03/2021 HbA1C 6.0 NovoLog per protocol HTN Lower extremity edema Hold metoprolol Continue Lasix and Aldactone HLD Continue statin COPD Former tobacco abuse Continue daily Advair As needed albuterol DVT Px: Heparin SQ Code Status FULL CODE Admission and Anticipated Discharge Date Admission Date: July 20, 2021 Subjective Patient is seen and examined at bedside Dizziness more positional currently Intermittently bradycardic at night Denies any chest pain, shortness of breath, abdominal pain No new complaints Review of Systems Review of Systems: All systems reviewed & are unremarkable except as noted in Subjective Physical Exam Physical Exam: Physical Exam: Vitals signs as noted above General Appearance:Obese, no apparent distress Head: normocephalic, Atraumatic Eyes: normal inspection, EOMI Neck: supple, Trachea midline Respiratory/Chest: Normal breath sounds, CTA, No accessory muscle use Cardiovascular: S1, S2, No murmur Abdomen/GI:Soft, Non tender, Bowel sounds present Extremities/Musculoskeletal:normal inspection, no edema Neurologic/Psych:AAOX3, grossly no focal neurological deficits Skin: normal color, warm Results & Data Results & Data ([facility]) Vital Signs (Past 12 Hours) Vital Signs Temp Pulse Resp BP Pulse Ox 07/22/21 15:58 36.8 C 80 18 114/72 98 07/22/21 11:33 36.9 C 92 H 18 141/80 H 97 07/22/21 07:42 36.8 C 77 18 148/80 H 98 Laboratory Results [facility] 07/22/21 06:29 Sodium 138 Potassium 3.7 Chloride 107 Carbon Dioxide 26 BUN 14 Creatinine 0.63 Glucose 114 H Calcium 8.9
[2021-07-22] MEDS: AMITRIPTYLINE HCL 25 MG TAB PO SCH (20:11)
[2021-07-22] MEDS: MONTELUKAST SODIUM 10 MG TABLET PO SCH (20:13)
[2021-07-23] MEDS ORDERED: oxyCODONE HCL IR 5 MG TAB (IMMEDIATE RELEASE) PO STA (02:18)
[2021-07-23] MEDS ORDERED: ATROPINE SULFATE 0.1 MG/ML 10ML SYR IV STA (05:18)
[2021-07-23] MEDS ORDERED: ATROPINE SULFATE 0.1 MG/ML 10ML SYR IV PRN (05:19)
--- NOTE | 2021-07-23 05:19 | Communication Note ---
Date of Service: July 23, 2021 5:13 AM Patient complaining of shortness of breath, dizziness, and palpitations as per RN. No chest pain. SBP 140s. Heart rate 30 to 50s on the monitor as per RN. EKG as per my interpretation rate 45, sinus bradycardia, normal axis, no ischemia AP Symptomatic bradycardia Atropine 1 dose now External pacer pads on N.p.o. until patient seen by cardiology in a.m. in anticipation of possible procedure. Will relay to AM provider.
[2021-07-23] MEDS ORDERED: MAGNESIUM SULFATE / D5W 1 GM/100 ML BAG IV ONE (05:20)
[2021-07-23] MEDS ORDERED: POTASSIUM CHLORIDE CRTAB 20 MEQ TABCR PO STA (05:20)
[2021-07-23 05:54] LABS: Basophils # (auto) 0.03 K/uL (0-0.2); Basophils % (auto) 0.3 %; Eosinophils # (auto) 0.05 K/uL (0-0.5); Eosinophils % (auto) 0.5 %; Hematocrit (blood only) 36.1 % (37-47); Hemoglobin 11.7 g/dL (12.0-16.0); Immature Granulocytes # (auto) 0.02 K/uL (0.00-0.02); Immature Granulocytes % (auto) 0.2 %; Lymphocytes # (auto) 3.76 K/uL (1.2-3.4); Lymphocytes % (auto) 39.6 %; Mean Corpuscular Hemoglobin 30.1 pg (25-34); Mean Corpuscular Hgb Conc 32.4 g/dL (32-36); Mean Corpuscular Volume 92.8 fL (80-100); Mean Platelet Volume 9.7 fL (7.4-10.4); Monocytes # (auto) 0.56 K/uL (0.11-0.59); Monocytes % (auto) 5.9 %; Neutrophils # (auto) 5.07 K/uL (1.4-6.5); Neutrophils % (auto) 53.5 %; Platelet Count 275 K/uL (130-400); RDW Coefficient of Variation 14.4 % (11.5-14.5); RDW Standard Deviation 48.6 fL (36.4-46.3); Red Blood Count 3.89 M/uL (4.2-5.4); White Blood Count 9.49 K/uL (4.8-10.8)
[2021-07-23 06:02] LABS: Partial Thromboplastin Ratio 0.9
[2021-07-23 06:18] LABS: BUN Creatinine Ratio 22.6 (10-20); Calcium 8.9 mg/dl (8.5-10.1); Est GFR (African American) 113.6 ml/min; Potassium 3.9 mmol/L (3.5-5.1)
[2021-07-23 06:35] LABS: Thyroid Stimulating Hormone 3.544 uIu/ml (0.300-4.500)
[2021-07-23 06:37] LABS: T4 Free Thyroxine 0.62 ng/dl (0.61-1.60)
[2021-07-23] MEDS ORDERED: HYDROCORTISONE SOD 50 MG in SYRINGE 0 ML IV SCH (06:45)
[2021-07-23] MEDS: HYDROCORTISONE SOD 50 MG in SYRINGE 0 ML IV SCH ×2 (07:46→20:25)
--- NOTE | 2021-07-23 07:51 | XRay Report ---
XR chest 1V portable HISTORY: Shortness of breath. COMPARISON: Chest 07/19/2021. FINDINGS: The heart remains mildly enlarged. There is mild diffuse interstitial thickening, unchanged . No new focal lung consolidations to suggest pneumonia. No pleural effusions. No pneumothorax. IMPRESSION: No significant change compared to the prior study. No acute process. ACT 112: Negative or not required by law. Electronically signed by: Roque Madrid M.D. 07/23/2021 7:50 AM
[2021-07-23] MEDS: INSULIN ASPART PER UNIT SC SCH ×4 (07:54→20:23)
[2021-07-23] MEDS: oxyCODONE HCL IR 5 MG TAB (IMMEDIATE RELEASE) PO PRN ×3 (07:55→20:30)
[2021-07-23] MEDS: estradioL 1 MG TAB PO SCH (08:48)
[2021-07-23] MEDS: CeleBREX 200 MG CAP PO SCH ×2 (08:48→20:26)
[2021-07-23] MEDS: GABAPENTIN 400 MG CAP PO SCH ×3 (08:49→20:27)
[2021-07-23] MEDS: FLUTICASONE/VILANTEROL 200/25MCG 14 PUFFS/INHALER INH SCH (08:49)
[2021-07-23] MEDS: FLUTICASONE PROPIONATE NA SPR 16 GM BTL SCH (08:49)
[2021-07-23] MEDS: ATORVASTATIN 40 MG TAB PO SCH (08:49)
[2021-07-23] MEDS: CALCIUM POLYCARBOPHIL 625MG TAB PO SCH (08:50)
[2021-07-23] MEDS: ESCITALOPRAM OXALATE 20 MG TAB PO SCH (08:50)
[2021-07-23] MEDS: LIOTHYRONINE SODIUM 25 MCG TAB PO SCH ×2 (08:50→20:25)
[2021-07-23] MEDS: ASPIRIN 81 MG ECTAB PO SCH (08:50)
[2021-07-23] MEDS: DULoxetine HCL 60 MG CAP PO SCH (08:50)
[2021-07-23] MEDS: MULTIVITAMIN TAB PO SCH (08:50)
[2021-07-23] MEDS: SPIRONOLACTONE 12.5 MG TAB PO SCH (08:50)
[2021-07-23] MEDS: HEPARIN SOD 5,000 UNIT/0.5 ML VIAL SQ SCH ×2 (08:51→20:26)
[2021-07-23] MEDS: FUROSEMIDE 40 MG TAB PO SCH (08:51)
[2021-07-23] MEDS: PANTOprazole 40 MG TAB PO SCH (08:51)
[2021-07-23] MEDS: CALCIUM CARBONATE 1250MG TAB PO SCH (08:51)
[2021-07-23] MEDS: LEVOTHYROXINE SODIUM 175 MCG TABLET PO SCH (10:08)
[2021-07-23] MEDS: MoRPHine SULFATE 4 MG/ML 1 ML CARP\\VIAL IV PRN (10:18)
[2021-07-23] MEDS ORDERED: MECLIZINE 12.5 MG TAB PO PRN (14:04)
--- NOTE | 2021-07-23 14:56 | Cardiology Progress Note ---
Date of Service July 23, 2021 Assessment & Plan (1) Symptomatic bradycardia: (2) Hypothyroidism: (3) Hypertension: (4) Palpitation: Plan: Patient continues to experience episodes of symptomatic bradycardia despite normalization/supplementation of thyroid function and discontinuation of beta- deya therapy. Symptoms due to underlying irreversible sinus node dysfunction. Recommend electrophysiology consultation for pacemaker implantation. I discussed patient's endocrine issues with Dr. Zuniga at [facility]. He recommends continuing Cytomel and levothyroxine at the current doses. Patient will remain n.p.o. until evaluated by electrophysiology. Admission and Anticipated Discharge Date Admission Date: July 20, 2021 Subjective Patient seen examined the bedside. Experienced an episode of lightheadedness this morning at approximately 5 AM. She awoke to use the restroom when she became acutely lightheaded. Sinus bradycardia in the 30s recorded on telemetry. Prior to my arrival at approximately 2:30 PM she experienced another episode of lightheadedness while seated in bed. Again telemetry reveals sinus bradycardia down into the 30s. Beta-deya on hold for more than 3 days. Her most recent thyroid function studies including TSH and free T4 are within normal limits. Review of Systems Review of Systems: All systems reviewed & are unremarkable except as noted in Subjective Physical Exam Constitutional: well nourished; no acute distress Respiratory: normal respiratory effort; no respiratory distress, no labored breathing and no retractions Auscultation: lungs clear to auscultation bilaterally; no crackles, no rales, no rhonchi and no wheezes Cardiovascular: Rate/Rhythm: regular rate and regular rhythm Heart Sounds: normal S1 and normal S2; no murmur Vessels: no JVD, no carotid bruit and no cranial bruit Extremities: no edema Gastrointestinal (Abdomen): Inspection/Auscultation: normal bowel sounds; abdomen not distended Percussion/Palpation: abdomen soft; abdomen nontender, no guarding and abdomen not rigid Neurologic: CN's II-XI intact bilaterally and moves all extremities; no focal motor deficits Motor/Sensory: no tremor Psychiatric: A+Ox3, euthymic affect Results & Data ([facility]) Vital Signs (Past 12 Hours) Vital Signs Temp Pulse Pulse Pulse Resp BP Pulse Ox 07/23/21 12:02 36.9 C 59 L 16 152/91 H 91 07/23/21 09:15 37.0 C 58 L 18 132/82 93 07/23/21 07:30 76 07/23/21 06:38 84 118/77 07/23/21 05:31 52 L 22 149/90 H 98 07/23/21 04:04 37.0 C 60 14 116/72 95
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
--- NOTE | 2021-07-23 15:28 | Pre Anesthesia Assessment ---
Date of Service July 23, 2021 Pre Sedation Assessment Vital Signs Temp Pulse Pulse Pulse Resp BP Pulse Ox 07/23/21 15:16 80 16 120/80 98 07/23/21 12:02 36.9 C 59 L 16 152/91 H 91 07/23/21 09:15 37.0 C 58 L 18 132/82 93 07/23/21 07:30 76 07/23/21 06:38 84 118/77 07/23/21 05:31 52 L 22 149/90 H 98 07/23/21 04:04 37.0 C 60 14 116/72 95 07/23/21 00:04 36.6 C 65 14 146/76 H 92 07/23/21 00:00 73 07/22/21 20:04 36.9 C 72 14 140/84 99 07/22/21 15:58 36.8 C 80 18 114/72 98 Cardiovascular RRR, no murmur, no edema Respiratory normal respiratory effort, lungs clear to auscultation Pre-Sedation Airway Assessment Smoking Status: Former smoker Short, Thick Neck: No Thyromental Distance: > or= 3.5 Finger Breadths Oral Cavity: + Dentures Mallampati Class: III ASA: ASA3 NPO Status Date of Last Intake of Fluids: 07/22/21 Time of Last Intake of Fluids: 20:00 Date of Last Intake of Solid Food: 07/22/21 Time of Last Intake of Solid Foods: 20:00 Procedure Planning Contraindications for Sedation: none Current Medications Reviewed: Yes Notes The planned sedation has been discussed with the patient. Informed Consent was obtained. I have identified the patient, determined the appropriateness of sedation and have assessed the patient immediately prior to the procedure. All medicine(s) and interventions are by my order.
[2021-07-23] MEDS ORDERED: LIDOCAINE 1% LOCAL 20 ML VIAL ONE (16:41)
[2021-07-23] MEDS ORDERED: WATER, STERILE FOR INJ 10 ML VIAL ONE (16:41)
[2021-07-23] MEDS ORDERED: VANCOMYCIN HCL 1000MG/20ML VIAL ONE (16:42)
[2021-07-23] MEDS ORDERED: BUPIVACAINE 0.25% 30 ML VIAL ONE (16:42)
[2021-07-23] MEDS ORDERED: MIDAZOLAM HCL 5 MG/ML 1 ML VIAL ONE (17:08)
[2021-07-23] MEDS ORDERED: ceFAZolin 330 MG/ML 1 GM VIAL ONE (17:08)
[2021-07-23] MEDS ORDERED: fentaNYL citrate 100 MCG/2 ML VIAL ONE (17:08)
--- NOTE | 2021-07-23 17:10 | Hospitalist Progress Note ---
Date of Service July 23, 2021 Assessment & Plan (1) Symptomatic bradycardia: (2) Dizziness: (3) DOMINGUEZ (dyspnea on exertion): (4) DM type 2 (diabetes mellitus, type 2): (5) Hypertension: Plan: Patient is a 60 yr female with H/O DM II, HLD, HTN, COPD, history of tobacco abuse, hypothyroidism, history of bilateral TKA, history of right hip replacement, history of lumbar spine surgery, postlaminectomy syndrome who presents to ED at the referral of preop testing due to bradycardia. Symptomatic bradycardia, secondary to Hypothyroidism Dizziness likely due to Tachybradycardia syndrome DOMINGUEZ Negative Lyme screen -ECHO: Left ventricle systolic function is normal. EF 60 to 65%. Mild concentric LVH. No significant valvular pathology. Avoid AV mike blocking agents--Hold Metoprolol Continue Levothyroxine replacement and corticosteroids Appreciate Endocrinology, Cardiology Input Planned for Pacemaker Placement today Planned to undergo L hip replacement at end of month with Dr. Jordan Pain Control Follow up as outpatient Severe Hypothyroidism TSH 62>>17.7>3.5 Free T4 < 0.25>>0.55>0.62 Free T3 Normal Appreciate Endocrinology Input (: discussed on 07/21/21) IV levothyroxine transitioned to PO levothyroxine 175 mcg p.o. daily IV hydrocortisone transition to PO hydrocortisone taper course Continue Cytomel to complete 5 day course Needs follow up with Endocrinology upon discharge DM II Last A1c 6.2 on 03/03/2021 HbA1C 6.0 NovoLog per protocol HTN Lower extremity edema Hold metoprolol Continue Lasix and Aldactone HLD Continue statin COPD Former tobacco abuse Continue daily Advair As needed albuterol DVT Px: Heparin SQ Code Status FULL CODE Admission and Anticipated Discharge Date Admission Date: July 20, 2021 Subjective Patient is seen and examined at bedside Patient had dizziness and dyspnea overnight Denies any chest pain, shortness of breath, abdominal pain Planned for pacemaker placement today Review of Systems Review of Systems: All systems reviewed & are unremarkable except as noted in Subjective Physical Exam Physical Exam: Physical Exam: Vitals signs as noted above General Appearance:Obese, no apparent distress Head: normocephalic, Atraumatic Eyes: normal inspection, EOMI Neck: supple, Trachea midline Respiratory/Chest: Normal breath sounds, CTA, No accessory muscle use Cardiovascular: S1, S2, No murmur Abdomen/GI:Soft, Non tender, Bowel sounds present Extremities/Musculoskeletal:normal inspection, no edema Neurologic/Psych:AAOX3, grossly no focal neurological deficits Skin: normal color, warm Results & Data Results & Data ([facility]) Vital Signs (Past 12 Hours) Vital Signs Temp Pulse Pulse Pulse Resp BP Pulse Ox 07/23/21 16:25 77 07/23/21 15:16 80 16 120/80 98 07/23/21 12:02 36.9 C 59 L 16 152/91 H 91 07/23/21 09:15 37.0 C 58 L 18 132/82 93 07/23/21 07:30 76 07/23/21 06:38 84 118/77 07/23/21 05:31 52 L 22 149/90 H 98 Laboratory Results Short CBC 07/23/21 Range/Units 05:36 WBC 9.49 (4.8-10.8) K/uL Hgb 11.7 L (12.0-16.0) g/dL Hct 36.1 L (37-47) % Plt Count 275 (130-400) K/uL BMP 07/23/21 05:36 Sodium 139 Potassium 3.9 Chloride 106 Carbon Dioxide 26 BUN 14 Creatinine 0.62 Glucose 104 H Calcium 8.9
[2021-07-23] MEDS ORDERED: BACITRACIN OINT 0.9 GM PKT ONE (17:31)
--- NOTE | 2021-07-23 18:26 | Electrophysiology Report ---
Date of Service July 23, 2021 Electrophysiology Procedure Electrophysiology Procedure Report Preoperative diagnosis: Sick sinus syndrome Postoperative diagnosis: Same Procedure: Dual-chamber pacemaker implantation Surgeon: Favio Russell MD Estimated blood loss: 20 cc Complications: None Disposition: Student Nurse recovery Procedure details: After obtaining informed consent for the procedure, the patient was brought to the laboratory and prepped and draped in the standard sterile manner. Dye was injected the left arm IV site to opacify the left subclavian vein. The subclavian vein was identified and found to be free of obstruction. The left prepectoral region was anesthetized with 1% lidocaine local anesthetic and left axillary venipuncture was performed by percutaneous technique and a guidewire placed through the left subclavian vein into the superior vena cava. The area was further infiltrated with 1% lidocaine local anesthetic and a 5 cm incision was made parallel to the left clavicle and 2 cm below it and carried down to the anterior pectoralis fascia. A pacemaker pocket was formed by blunt dissection anterior to the pectoralis fascia and a vancomycin-soaked sponge was placed in the pocket. An 8 [place] Medtronic lead introducer was placed over the guidewire into the left subclavian vein, the dilator and guidewire were removed and a bipolar active fixation steroid tipped ventricular lead was advanced through the introducer into the superior vena cava. A guidewire was placed through the introducer and the introducer was stripped from the lead and guidewire. Another 8 [place] Medtronic lead introducer was placed over the guidewire into the left subclavian vein, the dilator and guidewire were removed and a bipolar active fixation steroid tipped atrial lead was advanced through the introducer into the superior vena cava. A guidewire was placed back through the introducer and the introducer was stripped from the lead and guidewire. Using a curved stylette the ventricular lead was advanced through the right ventricular outflow tract into the pulmonary artery and then using a straight stylette was positioned in the right ventricular apex. The screw was extended fixing the lead in position. Pacing and sensing thresholds were evaluated in bipolar configuration and are recorded on the implant data sheet. Diaphragmatic pacing was evaluated at maximum output as noted on the data sheet. Using a curved stylette the atrial lead was positioned in the region of the atrial appendage and the screw extended fixing the lead in position. Pacing and sensing thresholds were evaluated in bipolar configuration and are recorded on the implant data sheet. Diaphragmatic pacing was evaluated at maximum output as noted on the data sheet. Once the leads were in position they were attached to the anterior pectoralis fascia using 2 sutures of 2-0 silk around each lead collar. The vancomycin soaked sponge was removed from the pocket, hemostasis was obtained, the pacemaker was attached to the leads and placed in the pocket with the leads coiled beneath it. The incision was closed with a running double subcutaneous closure of 3-0 Vicryl absorbable suture, followed by running subcuticular skin closure of 4-0 Vicryl absorbable suture. Bacitracin ointment was placed on the incision and a dressing applied. [facility] Electrophysiology codes Indication for Procedure (1) Tachy-kee syndrome: Pacing Procedure 1: Pacin Insert/Replace Pacer A & V Miscellaneous Procedures Procedure 1: EP Miscellaneous: 82948 Contrast injection for venography Procedure 2: EP Miscellaneous: 66457-25 Vengraphy, extremity PG Moderate Sedation Codes Moderate Sedation Codes Procedure 1: Sedation/Anesthesia: 31435 Mod Sedation by the same physician;Init15 Min Child Age 5 & Up Procedure 2: Sedation/Anesthesia: 72548 Mod Sedation by the same physician; Ea [id number] Minutes
[2021-07-23] MEDS ORDERED: ACETAMINOPHEN W/CODEINE #3 1 TAB PO PRN (18:34)
[2021-07-23] MEDS ORDERED: ACETAMINOPHEN 325 MG TAB PO PRN (18:34)
[2021-07-23] MEDS: MONTELUKAST SODIUM 10 MG TABLET PO SCH (20:26)
[2021-07-23] MEDS: AMITRIPTYLINE HCL 25 MG TAB PO SCH (20:27)
[2021-07-23] MEDS: METOPROLOL TARTRATE 25 MG TAB PO SCH (20:56)
[2021-07-24] MEDS: LEVOTHYROXINE SODIUM 175 MCG TABLET PO SCH (06:10)
--- NOTE | 2021-07-24 07:39 | Electrocardiogram Report ---
Test Reason : Blood Pressure : / mmHG Vent. Rate : 045 BPM Atrial Rate : 045 BPM P-R Int : 144 ms QRS Dur : 090 ms QT Int : 428 ms P-R-T Axes : 033 022 011 degrees QTc Int : 370 ms Sinus bradycardia Otherwise normal ECG When compared with ECG of 21-JUL-2021 06:20, Premature atrial complexes are no longer Present Confirmed by Favio Russell ([id number]) on 07/24/2021 7:39:03 AM Referred By: REFERRED SELF Confirmed By:Favio Russell
[2021-07-24] MEDS: INSULIN ASPART PER UNIT SC SCH ×3 (07:48→17:11)
--- NOTE | 2021-07-24 08:01 | Electrocardiogram Report ---
Test Reason : Blood Pressure : / mmHG Vent. Rate : 057 BPM Atrial Rate : 057 BPM P-R Int : 210 ms QRS Dur : 100 ms QT Int : 408 ms P-R-T Axes : 009 010 011 degrees QTc Int : 397 ms Atrial-paced rhythm with prolonged AV conduction with occasional ventricular-paced complexes One atrial beat with loss of capture Abnormal ECG When compared with ECG of 23-JUL-2021 05:19, (unconfirmed) Electronic ventricular pacemaker has replaced Sinus rhythm Confirmed by Favio Russell ([id number]) on 07/24/2021 8:00:52 AM Referred By: REFERRED SELF Confirmed By:Favio Russell
--- NOTE | 2021-07-24 08:03 | Post Anesthesia Assessment ---
Date of Service July 24, 2021 Post Sedation Assessment Vital Signs Temp Pulse Pulse Pulse Resp BP BP 07/24/21 07:41 37.0 C 64 16 119/80 07/24/21 03:13 36.7 C 61 18 108/65 07/24/21 00:23 60 07/23/21 23:59 37.2 C 60 18 98/62 L 07/23/21 22:00 37.2 C 61 20 128/75 07/23/21 21:30 36.5 C 66 18 141/77 H 07/23/21 21:00 36.5 C 61 22 122/94 07/23/21 20:30 36.4 C L 70 20 137/82 07/23/21 20:19 36.5 C 78 21 120/87 07/23/21 19:47 36.5 C 65 17 114/81 07/23/21 19:19 36.7 C 62 18 136/83 07/23/21 19:04 36.7 C 65 20 123/87 07/23/21 18:49 37.1 C 73 19 89/55 L 07/23/21 18:34 36.7 C 74 20 135/68 07/23/21 16:25 77 07/23/21 15:16 80 16 120/80 07/23/21 12:02 36.9 C 59 L 16 152/91 H 07/23/21 09:15 37.0 C 58 L 18 132/82 Pulse Ox 07/24/21 07:41 93 07/24/21 03:13 94 07/24/21 00:23 07/23/21 23:59 92 07/23/21 22:00 93 07/23/21 21:30 97 07/23/21 21:00 97 07/23/21 20:30 98 07/23/21 20:19 98 07/23/21 19:47 98 07/23/21 19:19 98 07/23/21 19:04 98 07/23/21 18:49 94 07/23/21 18:34 94 07/23/21 16:25 07/23/21 15:16 98 07/23/21 12:02 91 07/23/21 09:15 93 Discharge Sedation Level of Care: Fast Track Phase II Post Sedation Plan On clinical assessment, the patient appears to have tolerated the sedation without complications. Patient is recovering as anticipated. Patient will continue to be monitored by nursing and may be discharged when sedation discharge criteria are met per below protocol. Upon Completions of procedure up to 15 minutes continue every 5 minute vital signs and the P.A.R. score; then discharge to a Phase I or Fast Track to Phase II per the following guidelines: * Discharge Patient to appropriate Phase II area if PAR is 8 or greater or return to pre- procedure baseline. The post - procedure orders will be as directed. * If PAR score is less than 8 or not return to pre-procedure baseline then patient will follow Phase I monitoring till PAR is reached for Phase II. The Phase I may be done in procedure room or may call to secure a Phase I area. * If naloxone or flumazenil are used for reversal, hold in Phase I for continued monitoring from when last reversal dose was given for a minimum of 60 minutes or longer pending the nurse and/or physician discretion of patient condition before discharge to Phase II. Please call the Sedation Physician to re-evaluate and complete post-note for discharge to Phase II area. Do NOT discharge from procedure sedation or Phase 1 until post- sedation evaluation note is complete by procedure /sedation MD Sedation Discharge Instructions to be given to the patient at discharge to home.
[2021-07-24] MEDS ORDERED: MoRPHine SULFATE 2 MG/ML CARP IV PRN (08:05)
--- NOTE | 2021-07-24 08:18 | XRay Report ---
XR chest 2V PA/lateral HISTORY: 60 years-old Female EXACT TIME ORDERED Evaluate for pneumothorax and l status post placemen t of a left subclavian pacer COMPARISON: Chest radiograph 07/23/2021 TECHNIQUE: PA and lateral views of the chest FINDINGS: Cardiac silhouette is enlarged. Status post placement of a Dual-lead left subclavian pacer. The leads appear intact. No pneumothorax, pleural effusion, airspace consolidation or overt pulmonary edema. B ones appear grossly intact. IMPRESSION: Status post placement of a left subclavian pacer. No postprocedural pneumothorax identifi ed. ACT 112: Negative or not required by law. The above report was generated using voice recognition software. It may contain grammatical, syntax o r spelling errors. Electronically signed by: Yohannes Currie M.D. 07/24/2021 8:16 AM
[2021-07-24] MEDS ORDERED: HYDROCORTISONE 10 MG TAB PO SCH ×2 (09:00→21:00)
[2021-07-24 09:38] LABS: BUN Creatinine Ratio 26.6 (10-20); Calcium 9.1 mg/dl (8.5-10.1); Creatinine Clr Calc Pharmacy 108.7 ml/min; Est GFR (African American) 112.4 ml/min; Potassium 4.1 mmol/L (3.5-5.1)
[2021-07-24] MEDS: FLUTICASONE/VILANTEROL 200/25MCG 14 PUFFS/INHALER INH SCH (10:11)
[2021-07-24] MEDS: GABAPENTIN 400 MG CAP PO SCH ×2 (10:11→14:21)
[2021-07-24] MEDS: METOPROLOL TARTRATE 25 MG TAB PO SCH (10:11)
[2021-07-24] MEDS: FLUTICASONE PROPIONATE NA SPR 16 GM BTL SCH (10:11)
[2021-07-24] MEDS: PANTOprazole 40 MG TAB PO SCH (10:12)
[2021-07-24] MEDS: CALCIUM POLYCARBOPHIL 625MG TAB PO SCH (10:12)
[2021-07-24] MEDS: MULTIVITAMIN TAB PO SCH (10:12)
[2021-07-24] MEDS: SPIRONOLACTONE 12.5 MG TAB PO SCH (10:13)
[2021-07-24] MEDS: CALCIUM CARBONATE 1250MG TAB PO SCH (10:13)
[2021-07-24] MEDS: DULoxetine HCL 60 MG CAP PO SCH (10:13)
[2021-07-24] MEDS: estradioL 1 MG TAB PO SCH (10:13)
[2021-07-24] MEDS: LIOTHYRONINE SODIUM 25 MCG TAB PO SCH (10:13)
[2021-07-24] MEDS: ASPIRIN 81 MG ECTAB PO SCH (10:13)
[2021-07-24] MEDS: HEPARIN SOD 5,000 UNIT/0.5 ML VIAL SQ SCH (10:14)
[2021-07-24] MEDS: CeleBREX 200 MG CAP PO SCH (10:14)
[2021-07-24] MEDS: ESCITALOPRAM OXALATE 20 MG TAB PO SCH (10:14)
[2021-07-24] MEDS: FUROSEMIDE 40 MG TAB PO SCH (10:14)
[2021-07-24] MEDS: ATORVASTATIN 40 MG TAB PO SCH (10:14)
[2021-07-24] MEDS: oxyCODONE HCL IR 5 MG TAB (IMMEDIATE RELEASE) PO PRN ×2 (10:19→17:13)
--- NOTE | 2021-07-24 10:43 | Cardiology Progress Note ---
Date of Service July 24, 2021 Assessment & Plan (1) Tachy-kee syndrome: (2) Status post placement of cardiac pacemaker: Plan: 1. Postop day #1: Unfortunately her device is not ideal due to not enough atrial lead being placed in the heart at surgery. The systems should be revised, hopefully with just adding more atrial and ventricular lead slack. I think it is safe to go home however and I will arrange this for Monday afternoon. The worst case would be if the ventricular lead failed as well she would be back where she started, which was not life-threatening. 2. Palpitations: She has had intermittent palpitations for some time for which she is on a beta-deya, even so she is bothered by the palpitations. With a pacemaker in place these can be more readily treated. 3. Tachybradycardia syndrome: With her periods of symptomatic tachycardia and periods of symptomatic bradycardia this is classic for tachybradycardia syndrome. I suspect she will feel much better with a pacemaker in place to support her heart rate. 4. Hypothyroidism: Although a cause of bradycardia in her case correction of the hypothyroidism did not correct her bradycardia and she has a long history of hypothyroidism and will have to be maintained on medications for it. Admission and Anticipated Discharge Date Admission Date: July 20, 2021 Subjective She is feeling very well today, no significant incisional discomfort and no palpitations. Physical Exam Physical Exam: Her incision is clean and dry, no significant ecchymosis and no swelling or tenderness. Cardiac rhythm is regular with no rub Lungs are clear. Results & Data ([facility]) Vital Signs (Past 12 Hours) Vital Signs Temp Pulse Pulse Pulse Resp BP BP 07/24/21 10:10 79 142/90 H 07/24/21 08:11 60 07/24/21 07:41 37.0 C 64 16 119/80 07/24/21 03:13 36.7 C 61 18 108/65 07/24/21 00:23 60 07/23/21 23:59 37.2 C 60 18 98/62 L Pulse Ox 07/24/21 10:10 07/24/21 08:11 07/24/21 07:41 93 07/24/21 03:13 94 07/24/21 00:23 07/23/21 23:59 92 Diagnostic Findings ECG: Lack of atrial capture on 1 beat. Chest x-ray: Leads are quite straight in the heart although I do not believe dislodged, consistent with not enough slack at implant. Telemetry: Intermittent atrial capture, ventricular capture appears appropriate. Pacemaker evaluation: The atrial lead has poor characteristics and the ventricular lead is adequate although not as good as it had implant. Device programmed to VVI. PG Care Time/CCT Total # of Minutes Spent Total Time Spent with Patient: Total time spent is greater than 50% in coordination of care (as documented) at patient's floor/unit and/or counseling patient: Coding Level of Care Code 57922 Post Operative Follow-Up Diagnoses Tachy-kee syndrome I49.5 Status post placement of cardiac pacemaker Z95.0 CPT Codes Dual Lead Pacemaker System - [id number] ([id number])
--- NOTE | 2021-07-24 14:07 | Cardiology Progress Note ---
Date of Service July 24, 2021 Assessment & Plan (1) Sinus node dysfunction: (2) Symptomatic bradycardia: (3) Pacemaker: (4) Hypothyroidism: (5) Hypertension: (6) Palpitation: Plan: Patient is status post dual-chamber pacemaker implantation 07/23/2021. The atrial lead has moved and is not functioning properly. She is scheduled for lead revision early next week. Patient will be discharged home today. Post pacemaker activity restrictions reviewed. Wound check and interrogation 1 week post pacemaker insertion. Cardiology follow-up in 2-4 weeks. Continue current medications. Admission and Anticipated Discharge Date Admission Date: July 20, 2021 Subjective Patient seen examined the bedside. Lightheadedness has resolved. Telemetry reveals sinus rhythm with occasional ventricular pacing. It appears her atrial lead has moved overnight. Will require revision. Review of Systems 2 Review of Systems: All systems reviewed & are unremarkable except as noted in Subjective Physical Exam Constitutional: well nourished; no acute distress Respiratory: normal respiratory effort; no respiratory distress, no labored breathing and no retractions Auscultation: lungs clear to auscultation bilaterally; no crackles, no rales, no rhonchi and no wheezes Cardiovascular: Rate/Rhythm: regular rate and regular rhythm Heart Sounds: normal S1 and normal S2; no murmur Vessels: no JVD, no carotid bruit and no cranial bruit Extremities: no edema Gastrointestinal (Abdomen): Inspection/Auscultation: normal bowel sounds; abdomen not distended Percussion/Palpation: abdomen soft; abdomen nontender, no guarding and abdomen not rigid Neurologic: CN's II-XI intact bilaterally and moves all extremities; no focal motor deficits Motor/Sensory: no tremor Psychiatric: A+Ox3, euthymic affect Results & Data ([facility]) Vital Signs (Past 12 Hours) Vital Signs Temp Pulse Pulse Pulse Resp BP BP 07/24/21 10:10 79 142/90 H 07/24/21 08:11 60 07/24/21 07:41 37.0 C 64 16 119/80 07/24/21 03:13 36.7 C 61 18 108/65 Pulse Ox 07/24/21 10:10 07/24/21 08:11 07/24/21 07:41 93 07/24/21 03:13 94
--- NOTE | 2021-07-24 15:06 | Hospitalist Progress Note ---
Date of Service July 24, 2021 Assessment & Plan (1) Symptomatic bradycardia: (2) Dizziness: (3) DOMINGUEZ (dyspnea on exertion): (4) DM type 2 (diabetes mellitus, type 2): (5) Hypertension: Plan: Patient is a 60 yr female with H/O DM II, HLD, HTN, COPD, history of tobacco abuse, hypothyroidism, history of bilateral TKA, history of right hip replacement, history of lumbar spine surgery, postlaminectomy syndrome who presents to ED at the referral of preop testing due to bradycardia. Symptomatic bradycardia Dizziness likely due to Tachybradycardia syndrome Hypothyroidism could have contributes as well Dyspnea on Exertion Negative Lyme screen -ECHO: Left ventricle systolic function is normal. EF 60 to 65%. Mild concentric LVH. No significant valvular pathology. --S/P Dual-chamber pacemaker implantation 07/23/2021 Restarted Metoprolol Appreciate Cardiology Input Pacemaker device needs revised on Monday as atrial lead is dysfunctional Needs follow up with Cardiology upon discharge Plan to discharge home today Planned to undergo L hip replacement at end of month with Dr. Jordan Pain Control Follow up as outpatient Severe Hypothyroidism TSH 62>>17.7>3.5 Free T4 < 0.25>>0.55>0.62 Free T3 Normal Appreciate Endocrinology Input (: discussed on 07/21/21) IV levothyroxine transitioned to PO levothyroxine 175 mcg p.o. daily IV hydrocortisone transition to PO hydrocortisone taper course Completed 5 day course of Cytomel Needs follow up with Endocrinology upon discharge DM II Last A1c 6.2 on 03/03/2021 HbA1C 6.0 NovoLog per protocol HTN Lower extremity edema Hold metoprolol Continue Lasix and Aldactone HLD Continue statin COPD Former tobacco abuse Continue daily Advair As needed albuterol DVT Px: Heparin SQ Code Status FULL CODE Admission and Anticipated Discharge Date Admission Date: July 20, 2021 Subjective Patient is seen and examined at bedside Dizziness improved Reports minimal soreness at pacemaker insertion site Denies any shortness of breath, abdominal pain, nausea Review of Systems Review of Systems: All systems reviewed & are unremarkable except as noted in Subjective Physical Exam Physical Exam: Physical Exam: Vitals signs as noted above General Appearance:Obese, no apparent distress Head: normocephalic, Atraumatic Eyes: normal inspection, EOMI Neck: supple, Trachea midline Respiratory/Chest: Normal breath sounds, CTA, No accessory muscle use Cardiovascular: S1, S2, No murmur Abdomen/GI:Soft, Non tender, Bowel sounds present Extremities/Musculoskeletal:normal inspection, no edema Neurologic/Psych:AAOX3, grossly no focal neurological deficits Skin: normal color, warm Results & Data Results & Data ([facility]) Vital Signs (Past 12 Hours) Vital Signs Temp Pulse Pulse Pulse Resp BP BP 07/24/21 10:10 79 142/90 H 07/24/21 08:11 60 07/24/21 07:41 37.0 C 64 16 119/80 07/24/21 03:13 36.7 C 61 18 108/65 Pulse Ox 07/24/21 10:10 07/24/21 08:11 07/24/21 07:41 93 07/24/21 03:13 94 Laboratory Results BMP 07/24/21 08:38 Sodium 140 Potassium 4.1 Chloride 105 Carbon Dioxide 32 BUN 17 Creatinine 0.64 Glucose 110 H Calcium 9.1
--- NOTE | 2021-07-24 15:32 | Discharge Summary ---
Date of Service July 24, 2021 Admission HPI Per Admitting Provider This is a 60-year-old female who has a significant past medical history of T2DM, HLD, HTN, COPD, history of tobacco abuse, hypothyroidism, history of bilateral TKA, history of right hip replacement, history of lumbar spine surgery, postlaminectomy syndrome who presents to ED at the referral of preop testing due to bradycardia. Of significance patient is to undergo left hip replacement at end of the month by Dr. Jordan. She was seen by preop testing today and on EKG was found to have heart rates in the 30s. She was then referred over to ER for further evaluation. Over the last 2 to 3 weeks she admits to off and on dizziness. She states dizziness can occur when she is standing, with exertion or at rest. Typically it lasts approximately 1 minute, but there are occasions where if she is standing she has to sit down due to fear of passing out. She describes it as a lightheadedness and feeling like she is going to pass out sensation. She denies any off-balance sensation. She feels these episodes of been coming more frequent over the last couple weeks. She also admits to dyspnea on exertion. She states that she was told to lose 10 pounds for her surgery and she has lost approximately 5 so far. She has noticed increased fatigue which has limited her ability to do activity. This morning she was awoken in the early hours with severe nausea and feeling like she was going to vomit. She proceeded to go straight to the bathroom where she did have 1 episode of emesis. This was associated with dizziness and lightheadedness. After vomiting she went back to bed and symptoms completely resolved. Currently she denies any further nausea, vomiting or current dizziness. She denies any chest pain, shortness of breath at rest, hemoptysis, fever, chills, sweats, URI symptoms, cough, abdominal pain, dysuria, increased urgency or frequency with urination, hematuria, melena or hematochezia. Patient remained hemodynamically stable in the ED. On weight reduction specialist she was found to be in sinus bradycardia with heart rates between the 30s and 50s. Her CBC and CMP was generally unremarkable. TSH pending. EKG revealed marked sinus bradycardia with ventricular rate of 43, normal DC interval. There is no appearance of any prolonged DC interval or dropped beats. He does take metoprolol tartrate 25 mg daily. Her last dose was this morning. Admission Exam Per Admitting Provider Physical Exam Physical Exam: Constitutional: WD/WN, vitals as above, NAD, sitting up in bed, pleasant, conversing easily Head: Normocephalic, Atraumatic Eyes: PERRL, conjunctivae normal, anicteric sclerae ENMT: external ear and nose normal, oropharynx normal Neck: trachea midline, no thyromegaly normal visual inspection Respiratory: normal respiratory effort, lungs clear to auscultation, no wheeze, rales, rhonchi. Normal insp/exp effort, no accessory muscle use Cardiovascular: bradycardic rate, reg rhythm, distant heart sounds 2/2 to body habitus, no murmur, no edema Vessels: no JVD or carotid bruit Chest: normal inspection of chest Abdomen: normal bowel sounds, soft, nontender, no hepatosplenomegaly Musculoskeletal: no cyanosis or clubbing, extremities AROM x 4 Skin: no rashes, warm and dry normal turgor Neurologic: PERRL, EOMI, accommodation nl, no face palsy, no dysarthria CN's II-XI intact bilaterally and moves all extremities Psychiatric: A+Ox3, euthymic affect Lymphatic: no cervical or axillary lymphadenopathy : deferred Principal Diagnosis Tachybradycardia syndrome Severe Hypothyroidism Discharge Data Allergies Allergy/AdvReac Type Severity Reaction Status Date / Time tetracycline Allergy Unknown HIVES, SOB Verified 07/19/21 15:16 Consultations 07/19/21 13:20 Consult Cardiology Routine ED Decision to Admit Stat 07/23/21 14:22 Consult Cardiac Electrophysiology Routine Procedures Performed Operation Date: 07/23/21 15:30 Actual Procedures p Pacer with A/V Leads (Dual) - Favio Russell MD s Venogram, Unilateral - Favio Russell MD Ordered Studies 07/23/21 16:46 CL Cath Imgs for PACS use only Routine Hospital Course (1) Symptomatic bradycardia: (2) Dizziness: (3) DOMINGUEZ (dyspnea on exertion): (4) DM type 2 (diabetes mellitus, type 2): (5) Hypertension: Patient is a 60 yr female with H/O DM II, HLD, HTN, COPD, history of tobacco abuse, hypothyroidism, history of bilateral TKA, history of right hip replacement, history of lumbar spine surgery, postlaminectomy syndrome who presents to ED at the referral of preop testing due to bradycardia. Symptomatic bradycardia Dizziness likely due to Tachybradycardia syndrome Hypothyroidism could have contributes as well Dyspnea on Exertion Negative Lyme screen -ECHO: Left ventricle systolic function is normal. EF 60 to 65%. Mild concentric LVH. No significant valvular pathology. --S/P Dual-chamber pacemaker implantation 07/23/2021 Restarted Metoprolol Appreciate Cardiology Input Pacemaker device needs revised on Monday as atrial lead is dysfunctional Needs follow up with Cardiology upon discharge Plan to discharge home today Planned to undergo L hip replacement at end of month with Dr. Jordan Pain Control Follow up as outpatient Severe Hypothyroidism TSH 62>>17.7>3.5 Free T4 < 0.25>>0.55>0.62 Free T3 Normal Appreciate Endocrinology Input (: discussed on 07/21/21) IV levothyroxine transitioned to PO levothyroxine 175 mcg p.o. daily IV hydrocortisone transition to PO hydrocortisone taper course Completed 5 day course of Cytomel Needs follow up with Endocrinology upon discharge DM II Last A1c 6.2 on 03/03/2021 HbA1C 6.0 NovoLog per protocol HTN Lower extremity edema Hold metoprolol Continue Lasix and Aldactone HLD Continue statin COPD Former tobacco abuse Continue daily Advair As needed albuterol DVT Px: Heparin SQ Code Status FULL CODE Total Time Total Time Spent Total Time Spent (In Minutes): 50 minutes Discharge Plan Discharge Items Patient Disposition: Home - Self-Care Reason For Visit: SYMPTOMATIC BRADYCARDIA Discharge Diagnosis: Tachybradycardia syndrome Severe Hypothyroidism Activity: Per Instructions section Exercise/Sports: Wait until after follow-up appointment Non-emergency contact: Primary Care Provider and Label Sewer Call non-emergency contact if: you have any medication questions, your symptoms worsen, your pain is concerning for you and you have a fever Follow-up/Referrals: Alicia Holder MD [Primary Care Provider] - Diet: Carb Consistent or DM2 and Heart Healthy Addtl Attending Provider Instructions: Follow-up with your primary care physician in 1 week Follow-up with your classified copy control clerk for Pacemaker revision on 07/26/21 as advised Follow-up with your primary classified copy control clerk in 2-4 weeks Follow up with your Residential Program Coordinator Yen Barroso in in 3-4 weeks Complete the steroid taper course as prescribed Take hydrocortisone 20mg AM and 10mg PM on (07/24/21 AND 07/25/21) Take hydrocortisone 10mg AM and 5 mg PM on (07/26/21 AND 07/27/21) then STOP --Start taking Levothyroxine 175 mcg PO daily as recommended by your corrugator machine operator. Further recommendations as per your endoscinologist. You will need repeat Thyroid function test in 4 weeks Seek immediate medical attention if your symptoms reoccur or worsen Please take all medications as instructed on discharge list below. Please call if you have any questions or problems. You can reach a [facility] hospitalist on duty at [facility] 24 hours a day by calling [phone] Pending Studies at Discharge: No Stand-Alone Forms: My [facility] [employer], Smoking Cessation Medications and DC Order Prescriptions: New levothyroxine [Synthroid] 175 mcg Tablet 175 mcg PO DAILYBB Qty: 30 RF: 0 hydrocortisone 5 mg tablet 5 mg PO UD Qty: 14 RF: 0 Continued multivitamin [Multiple Vitamins] Tablet 1 tab PO QAM RF: 0 albuterol sulfate 0.63 mg/3 mL Solution For Nebulization 0.63 mg INHALATION UD PRN (Reason: Shortness Of Breath) RF: 0 gabapentin 400 mg Capsule 800 mg PO TID RF: 0 metformin 850 mg Tablet 850 mg PO BID RF: 0 spironolactone 25 mg Tablet 12.5 mg PO QAM RF: 0 calcium carbonate [Calcium 600] 600 mg calcium (1,500 mg) Tablet 600 mg PO QAM RF: 0 fluticasone propion-salmeterol [Advair Diskus] 500-50 mcg/dose Blister With Device 1 inh INHALATION BID RF: 0 calcium polycarbophil [Fiber (calcium polycarbophil)] 625 mg Tablet 625 mg PO QAM RF: 0 nitroglycerin 0.4 mg Tablet, Sublingual 1 tab Sublingual UD PRN (Reason: Chest Pain) RF: 0 montelukast [Singulair] 10 mg Tablet 10 mg PO HS RF: 0 furosemide 20 mg Tablet 40 mg PO QAM RF: 0 albuterol sulfate [Ventolin HFA] 90 mcg/actuation Hfa Aerosol Inhaler 2 puff INHALATION UD PRN (Reason: Shortness Of Breath) RF: 0 fluticasone propionate [Flonase Allergy Relief] 50 mcg/actuation Jackson,Suspension 2 spray INTRANASAL QAM RF: 0 duloxetine [Cymbalta] 60 mg Capsule,Delayed Release(Dr/Ec) 60 mg PO QAM RF: 0 aspirin [Aspir-81] 81 mg Tablet,Delayed Release (Dr/Ec) 81 mg PO HS RF: 0 amitriptyline 25 mg tablet 25 mg PO HS RF: 0 atorvastatin 80 mg tablet 80 mg PO HS RF: 0 celecoxib [Celebrex] 200 mg capsule 200 mg PO BID RF: 0 estradiol 1 mg tablet 1 mg PO WK RF: 0 pantoprazole 40 mg tablet,delayed release (DR/EC) 40 mg PO DAILYBB RF: 0 escitalopram oxalate 20 mg tablet 20 mg PO QAM RF: 0 Changed metoprolol tartrate 25 mg Tablet 25 mg PO BID Qty: 60 RF: 0 Discontinued levothyroxine [Levo-T] 150 mcg Tablet 150 mcg PO DAILYBB RF: 0 Discharge Orders: Discharge Order (Routine); Ordered 07/24/21 Ordered By: Carl Dior/Other Patient Handouts: Managing Type 2 Diabetes Admission Data Admit Date/Time: 07/20/21 08:34 Attending Provider: Carl Gray Admit Provider: Kashmir Chauhan Primary Care Provider: Alicia Holder Other Providers: Kashmir Chauhan ; Guillermo Davison Charles C.
--- NOTE | 2021-07-30 07:47 | Coding Query ---
BMI To promote full compliance with coding requirements relating to patient care, physician participation is requested in all cases of fiberglass roving winder uncertainty. Please assist us with the question(s) below: Please place an X within the parenthesis (x). If other, please document: BMI 43.0 was documented in this record for this patient. If the BMI is significant, please check the box that provides a more specific associated diagnosis: ( ) Overweight/Obese ( ) Obesity (x ) Morbid obesity ( ) Obesity Hypoventilation Syndrome (OHS) ( ) Heathy weight, not significant ( ) Underweight/Thin ( ) Other, please specify Thank you Denisse WEBB
== END 2021-07-24 17:58 | disposition home or self-care (01) | DRG 243 ==
LOC: ED 10:51 → 2E 10:51 → SUATTDRO 07-20 08:34

== ENCOUNTER 2021-11-19 11:09 | Observation (INO) ==
--- NOTE | 2021-07-16 11:17 | PAT Medication Instructions ---
Medication Instructions Date of Service July 16, 2021 Home Medications Medication Instructions Recorded acetaminophen 500 mg tablet 1,000 mg PO Q8 PRN #90 tab 11/19/19 aspirin 325 mg tablet,delayed 325 mg PO BID #56 tab 11/19/19 release (Ecotrin) celecoxib 200 mg capsule (Celebrex) 200 mg PO BID PRN #28 cap 11/19/19 oxycodone 5 mg tablet 5 mg PO Q6H PRN #30 tab MDD 4 11/19/19 sennosides 8.6 mg tablet (Senokot) 17.2 mg PO HS PRN #28 tab 11/19/19 albuterol sulfate 0.63 mg/3 mL solution for nebulization 0.63 mg INHALATION UD PRN albuterol sulfate 90 mcg/actuation aerosol inhaler (Ventolin HFA) 2 puff INHAL ATION UD PRN calcium carbonate 600 mg calcium (1,500 mg) tablet (Calcium) 600 mg PO QAM calcium polycarbophil 625 mg tablet (Fiber (calcium polycarbophil)) 625 mg PO QAM docusate sodium 100 mg capsule (Colace) 100 mg PO QAM duloxetine 60 mg capsule,delayed release (Cymbalta) 60 mg PO QAM fluticasone 500 mcg-salmeterol 50 mcg/dose blistr powdr for inhalation (Advair Diskus) 1 inh INHALATION BID fluticasone propionate 50 mcg/actuation nasal spray,suspension (Flonase Allergy Relief) 2 spray INTRANASAL QAM furosemide 20 mg tablet 2 tab PO QAM gabapentin 400 mg capsule 2 tab PO TID levothyroxine 150 mcg tablet (Levo-T) 150 mcg PO QAM metformin 850 mg tablet 850 mg PO BID metoprolol tartrate 25 mg tablet 25 mg PO QAM montelukast 10 mg tablet (Singulair) 10 mg PO HS multivitamin (Multiple Vitamins) 1 tab PO QAM nitroglycerin 0.4 mg sublingual tablet 1 tab SUBLINGUAL UD PRN polyethylene glycol 3350 17 gram/dose oral powder (Miralax) 1 dose PO QAM simvastatin 20 mg tablet (Zocor) 20 mg PO HS spironolactone 25 mg tablet 25 mg PO QAM amitriptyline 50 mg tablet 50 mg PO HS semaglutide (Ozempic) 0.25 mg SUBCUT WK acetaminophen 500 mg tablet 1,000 mg PO Q8 PRN aspirin 325 mg tablet,delayed release (Ecotrin) 325 mg PO BID celecoxib 200 mg capsule (Celebrex) 200 mg PO BID PRN oxycodone 5 mg tablet 5 mg PO Q6H PRN sennosides 8.6 mg tablet (Senokot) 17.2 mg PO HS PRN Continue as directed nitroglycerin 0.4 mg sublingual tablet 1 tab SUBLINGUAL UD PRN (if needed) semaglutide (Ozempic) 0.25 mg SUBCUT WK (just do not take on morning of surgery) ASK your surgeon for instructions celecoxib 200 mg capsule (Celebrex) 200 mg PO BID PRN ASK your prescriber and surgeon aspirin 325 mg tablet,delayed release (Ecotrin) 325 mg PO BID DO NOT take the morning of surgery calcium carbonate 600 mg calcium (1,500 mg) tablet (Calcium) 600 mg PO QAM calcium polycarbophil 625 mg tablet (Fiber (calcium polycarbophil)) 625 mg PO QAM docusate sodium 100 mg capsule (Colace) 100 mg PO QAM furosemide 20 mg tablet 2 tab PO QAM metformin 850 mg tablet 850 mg PO BID multivitamin (Multiple Vitamins) 1 tab PO QAM polyethylene glycol 3350 17 gram/dose oral powder (Miralax) 1 dose PO QAM spironolactone 25 mg tablet 25 mg PO QAM Take morning of surgery With a small sip of water, OTHERWISE NOTHING TO EAT OR DRINK AFTER MIDNIGHT: albuterol sulfate 0.63 mg/3 mL solution for nebulization 0.63 mg INHALATION UD PRN (if needed) albuterol sulfate 90 mcg/actuation aerosol inhaler (Ventolin HFA) 2 puff INHALATION UD PRN (use if needed; please bring with you to hospital day of surgery if possible) duloxetine 60 mg capsule,delayed release (Cymbalta) 60 mg PO QAM fluticasone 500 mcg-salmeterol 50 mcg/dose blistr powdr for inhalation (Advair Diskus) 1 inh INHALATION BID fluticasone propionate 50 mcg/actuation nasal spray,suspension (Flonase Allergy Relief) 2 spray INTRANASAL QAM gabapentin 400 mg capsule 2 tab PO TID levothyroxine 150 mcg tablet (Levo-T) 150 mcg PO QAM metoprolol tartrate 25 mg tablet 25 mg PO QAM acetaminophen 500 mg tablet 1,000 mg PO Q8 PRN (okay to take up to 4 hours prior to surgery if needed) oxycodone 5 mg tablet 5 mg PO Q6H PRN (okay to take up to 4 hours prior to surgery if needed) Take evening before surgery albuterol sulfate 0.63 mg/3 mL solution for nebulization 0.63 mg INHALATION UD PRN (if needed) albuterol sulfate 90 mcg/actuation aerosol inhaler (Ventolin HFA) 2 puff INHALATION UD PRN (if needed) fluticasone 500 mcg-salmeterol 50 mcg/dose blistr powdr for inhalation (Advair Diskus) 1 inh INHALATION BID gabapentin 400 mg capsule 2 tab PO TID metformin 850 mg tablet 850 mg PO BID montelukast 10 mg tablet (Singulair) 10 mg PO HS simvastatin 20 mg tablet (Zocor) 20 mg PO HS amitriptyline 50 mg tablet 50 mg PO HS acetaminophen 500 mg tablet 1,000 mg PO Q8 PRN (if needed) oxycodone 5 mg tablet 5 mg PO Q6H PRN (if needed) sennosides 8.6 mg tablet (Senokot) 17.2 mg PO HS PRN (if needed) Other Notes If you have any questions please call us at [phone] or [phone] or [phone] or [phone]
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
--- NOTE | 2021-10-11 16:07 | PAT Medication Instructions ---
Medication Instructions Date of Service October 11, 2021 Home Medications Medication Instructions Recorded metoprolol tartrate 50 mg tablet 50 mg PO BID #180 tabs 09/01/21 albuterol sulfate 0.63 mg/3 mL solution for nebulization 0.63 mg inhalation UD PRN albuterol sulfate 90 mcg/actuation aerosol inhaler (Ventolin HFA) 2 puff inhalation UD PRN calcium carbonate 600 mg calcium (1,500 mg) tablet (Calcium) 600 mg PO QAM calcium polycarbophil 625 mg tablet (Fiber (calcium polycarbophil)) 625 mg PO QAM duloxetine 60 mg capsule,delayed release (Cymbalta) 60 mg PO QAM fluticasone 500 mcg-salmeterol 50 mcg/dose blistr powdr for inhalation (Advair Diskus) 1 inh inhalation BID fluticasone propionate 50 mcg/actuation nasal spray,suspension (Flonase Allergy Relief) 2 spray intranasal QAM furosemide 20 mg tablet 40 mg PO QAM gabapentin 400 mg capsule 800 mg PO TID metformin 850 mg tablet 850 mg PO BID montelukast 10 mg tablet (Singulair) 10 mg PO HS multivitamin (Multiple Vitamins) 1 tab PO QAM nitroglycerin 0.4 mg sublingual tablet 1 tab sublingual UD PRN spironolactone 25 mg tablet 12.5 mg PO QAM amitriptyline 25 mg tablet 25 mg PO HS aspirin 81 mg tablet,delayed release 81 mg PO HS atorvastatin 80 mg tablet 80 mg PO HS celecoxib 200 mg capsule (Celebrex) 200 mg PO BID escitalopram oxalate 20 mg tablet 20 mg PO QAM estradiol 1 mg tablet 1 mg PO WK pantoprazole 40 mg tablet,delayed release 40 mg PO QAM metoprolol tartrate 50 mg tablet 50 mg PO BID levothyroxine 175 mcg tablet (Synthroid) 175 mcg PO QAM meclizine 25 mg tablet 12.5 - 25 mg PO Q8H PRN Continue as directed nitroglycerin 0.4 mg sublingual tablet 1 tab sublingual UD PRN(if needed) ASK your surgeon for instructions celecoxib 200 mg capsule (Celebrex) 200 mg PO BID ASK your prescriber and surgeon estradiol 1 mg tablet 1 mg PO WK DO NOT take the morning of surgery calcium carbonate 600 mg calcium (1,500 mg) tablet (Calcium) 600 mg PO QAM calcium polycarbophil 625 mg tablet (Fiber (calcium polycarbophil)) 625 mg PO QAM furosemide 20 mg tablet 40 mg PO QAM metformin 850 mg tablet 850 mg PO BID multivitamin (Multiple Vitamins) 1 tab PO QAM spironolactone 25 mg tablet 12.5 mg PO QAM Take morning of surgery With a small sip of water, OTHERWISE NOTHING TO EAT OR DRINK AFTER MIDNIGHT: albuterol sulfate 0.63 mg/3 mL solution for nebulization 0.63 mg inhalation UD PRN(if needed) albuterol sulfate 90 mcg/actuation aerosol inhaler (Ventolin HFA) 2 puff inhalation UD PRN(use if needed; please bring with you to hospital day of surgery if possible) duloxetine 60 mg capsule,delayed release (Cymbalta) 60 mg PO QAM fluticasone 500 mcg-salmeterol 50 mcg/dose blistr powdr for inhalation (Advair Diskus) 1 inh inhalation BID fluticasone propionate 50 mcg/actuation nasal spray,suspension (Flonase Allergy Relief) 2 spray intranasal QAM gabapentin 400 mg capsule 800 mg PO TID escitalopram oxalate 20 mg tablet 20 mg PO QAM pantoprazole 40 mg tablet,delayed release 40 mg PO QAM metoprolol tartrate 50 mg tablet 50 mg PO BID levothyroxine 175 mcg tablet (Synthroid) 175 mcg PO QAM meclizine 25 mg tablet 12.5 - 25 mg PO Q8H PRN(if needed) Take evening before surgery albuterol sulfate 0.63 mg/3 mL solution for nebulization 0.63 mg inhalation UD PRN(if needed) albuterol sulfate 90 mcg/actuation aerosol inhaler (Ventolin HFA) 2 puff inhalation UD PRN(if needed) fluticasone 500 mcg-salmeterol 50 mcg/dose blistr powdr for inhalation (Advair Diskus) 1 inh inhalation BID gabapentin 400 mg capsule 800 mg PO TID metformin 850 mg tablet 850 mg PO BID montelukast 10 mg tablet (Singulair) 10 mg PO HS amitriptyline 25 mg tablet 25 mg PO HS aspirin 81 mg tablet,delayed release 81 mg PO HS (unless surgeon directed otherwise) atorvastatin 80 mg tablet 80 mg PO HS metoprolol tartrate 50 mg tablet 50 mg PO BID meclizine 25 mg tablet 12.5 - 25 mg PO Q8H PRN(if needed) Other Notes If you have any questions please call us at [phone] or [phone] or [phone] or [phone]
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
[~2021-11-19 11:09] MED LIST changes: -CEFAZOLIN 2000MG 2,000 MG/15 ML SYR IV SCH; +LR 15ML/HR IV SCH; -LR 500ML BOLUS, THEN 15ML/HR IV SCH; -ROPIVACAINE 0.5% HCL/PF 150 MG, BUPIVACAINE 0.5% MPF 30 ML, EPINEPHrine 30MG/30ML (OR U... INSTIL SCH; +ROPIVACAINE 0.5% HCL/PF 150 MG, BUPIVACAINE 0.75% MPF 20 ML, EPINEPHrine 30MG/30ML (OR ... INFIL SCH; +ceFAZolin 2000MG 2,000 MG/15 ML SYR IV SCH
[2021-11-19] MEDS ORDERED: PROPOFOL IV EMULSION 10 MG/ML 20 ML VIAL IV ONE ×7 (11:55→17:43)
[2021-11-19] MEDS ORDERED: LIDOCAINE 2% MPF LOCAL 5 ML VIAL INFIL ONE (11:55)
--- NOTE | 2021-11-19 12:44 | History & Physical Bridge Note ---
Date of Service November 19, 2021 History & Physical Bridge Note I have examined the patient, reviewed the History & Physical and in the interval since the performance of the History & Physical I have noted the following changes of clinical significance: no changes noted
[2021-11-19] MEDS ORDERED: fentaNYL citrate 100 MCG/2 ML VIAL ONE ×3 (12:58→18:49)
[2021-11-19] MEDS ORDERED: MIDAZOLAM HCL 1 MG/ML 2ML VIAL ONE ×2 (13:01→13:44)
[2021-11-19] MEDS ORDERED: ONDANSETRON INJ 2 MG/ML 2 ML VIAL ONE ×2 (13:26→13:45)
[2021-11-19] MEDS ORDERED: ORTHO JOINT ANESTHETIC ONE (14:03)
[2021-11-19] MEDS ORDERED: ePHEDrine sulfate 50 MG/ML SYR ONE (15:18)
[2021-11-19] MEDS ORDERED: ePHEDrine sulfate 50 MG/ML AMP ONE (15:50)
[2021-11-19] MEDS ORDERED: PHENYLEPHRINE 100MCG/ML 5ML SYR ONE (15:50)
[2021-11-19] MEDS ORDERED: PHENYLEPHRINE HCL 10 MG/ML VIAL ONE (16:07)
[2021-11-19] MEDS ORDERED: KETAMINE 50 MG/5 ML SYRINGE ONE (16:42)
[2021-11-19] MEDS ORDERED: METOCLOPRAMIDE HCL INJ 5 MG/ML 2 ML VIAL IV PRN (17:32)
[2021-11-19] MEDS ORDERED: diphenhydrAMINE Capsule 25 MG CAP PO PRN (17:32)
[2021-11-19] MEDS ORDERED: PHARMACY GLYCEMIC MGMT CONSULT PRN (17:32)
[2021-11-19] MEDS ORDERED: ALUMINUM/MAGNESIUM SUSP 30 ML UDC PO PRN (17:32)
[2021-11-19] MEDS ORDERED: NALOXONE HCL 0.4 MG/1 ML VIAL/CARP IV PRN (17:32)
[2021-11-19] MEDS ORDERED: MAGNESIUM HYDROXIDE SUSP 30 ML UDC PO PRN (17:32)
[2021-11-19] MEDS ORDERED: ONDANSETRON INJ 2 MG/ML 2 ML VIAL IV PRN (17:32)
[2021-11-19] MEDS ORDERED: bisacodyL 10 MG SUPP PR PRN (17:32)
[2021-11-19] MEDS ORDERED: KETOROLAC TROMETHAMINE 15 MG/ML VIAL IV PRN (17:32)
--- NOTE | 2021-11-19 18:18 | Post Operative Brief Note ---
Immediate Post Op Note v1 Date of Surgery November 19, 2021 Pre & Post Diagnosis Operation Date: 11/19/21 14:05 Pre-Op Diagnosis: Left Hip Osteoarthritis, left hip pain, BMI 40-45. Post-Op Diagnosis: Left Hip Osteoarthritis, left hip pain, BMI 40-45. I identified the patient and participated in the time-out.: Yes Procedure Operation Date: 11/19/21 14:05 Actual Procedures p Left Hip Total Hip Arthroplasty with a Italia Accolade 2 press-fit size 4 femoral neck, Biolox delta V 40 femoral head +0 neck 36 mm, Trident 2 acetabular shell 56 mm, 6.5 mm hex screws x2 and Trident X3 10 degree polyethylene 36 mm insert. (Left) - Jericho Jordan DO Surgeon Jericho Jordan DO Wirer Maintenance Jcarlos Beaver PA-C, Melecio Hart PA-C Estimated Blood Loss 150 Findings Consistent with Post-Op Diagnosis Specimens Bone and tissue left hip Drains Other (10 [place] Hemovac drain x2, Prevena wound drain) Anesthesia Type MAC Spinal Regional Complications none Disposition Accompanied Patient To Recovery: No Overlapping Procedure I was present for: the critical portions of procedure. I was immediately available: during the entire case.
[2021-11-19] MEDS: fentaNYL citrate 100 MCG/2 ML VIAL IV SCH ×3 (18:50→23:15)
--- NOTE | 2021-11-19 18:55 | XRay Report ---
XR hip 1V LT w pelvis CLINICAL HISTORY: IN PACU - Post Surgical TECHNIQUE: 2 views of the left hip and single frontal view of the pelvis were obtained. Comparison: Comparison is made to hip radiograph 11/19/2019 FINDINGS: Patient is status post placement of left total hip arthroplasty with expected postoperative changes i ncluding subcutaneous emphysema. No fracture or hardware fracture is seen. IMPRESSION: Expected postoperative appearance status post placement of total hip arthroplasty. ACT 112: Negative or not required by law. Electronically signed by: Gen Samson M.D. 11/19/2021 6:54 PM
--- NOTE | 2021-11-19 19:00 | Operative Report (OR) ---
DATE OF PROCEDURE: 11/19/2021. PREOPERATIVE DIAGNOSES: 1. Left hip osteoarthritis. 2. Left hip pain. 3. Body mass index 40-45. POSTOPERATIVE DIAGNOSES: 1. Left hip osteoarthritis. 2. Left hip pain. 3. Body mass index 40-45. PROCEDURE: Left total hip arthroplasty with a Columbia Accolade II, press-fit size 4 femoral neck, Biolox delta V40 femoral head +0 neck x 36 mm diameter, Trident II acetabular shell 56 mm, 5.6 mm hex screws x2 and Trident X3 10-degree polyethylene 36 mm insert. SURGEON: Jericho Jordan DO. LOSS PREVENTION AGENT: Jcarlos Beaver PA-C and Melecio Hart PA-C who was present for patient positioning, sterile prep and drape, management of retractors and instruments. He was present through the critical portions of the case including wound closure, application of sterile dressing and transport of the patient to recovery. Extra PA assistance was required due to the patient's body habitus and increased adipose layer necessitating increased assistance and increased time during the procedure. ANESTHESIA: Spinal MAC, regional. SPECIMENS: Bone and tissue, left hip. DRAINS: Hemovac x2 and surface Prevena wound VAC. COMPLICATIONS: None. BLOOD LOSS: 150 mL PERTINENT HISTORY: This is a 61-year-old female who has had chronic progressive pain and worsening left hip osteoarthritis for the last 3-5 years. She attempted and failed conservative management including physical therapy, physician-directed home exercises, anti-inflammatories, rest, modification of activities, observation, steroid injections, and topical anti-inflammatories. Radiographs demonstrate severe osteoarthritis with complete loss of joint space, marginal osteophytes, subchondral sclerosis, and subchondral cyst formation with the deformation of the femoral head. The patient was scheduled for surgery as indicated. All potential risks, benefits, complications, alternatives, rehab potential for incomplete relief of symptoms, need for further surgery, DVT, PE, , persistent pain, swelling, scarring, weakness, neurovascular injury, wound complications, hardware failure, nonunion, malunion, bone fracture were discussed with the patient. The patient decided to proceed with the procedure as indicated. PROCEDURE: The patient was taken to the Operating Suite and placed supine on the Operating Room table after identification of the consent and identification of the proper operative site the patient was sedated. The patient had previously received a spinal epidural anesthetic. The patient was then placed in the left lateral decubitus position with the affected side up and Stulberg positioning device then used to maintain lateral position of the patient. Extra time and staff assistance was required to position the patient due to increased body mass. All bony prominences were properly padded and protected. Axillary roll was placed as standard and the leg lengths were determined to be essentially equal and then the right hip was then sterilely prepped and draped in the usual fashion. 10-blade scalpel incision was made laterally over the greater trochanter. The incision was deepened through the generous subcutaneous tissue and enhanced time and effort was required to achieve meticulous hemostasis with electrocautery due to marked thickness and adipose layer. Further deepening of the wound through the layer of the fascia was performed with electrocautery and iliotibial band was then incised with electrocautery. Next, Charnley with deep retractor arms was placed bother anteriorly and posteriorly at the level of the gluteus tendon. Next, electrocautery was used to make an incision in the vastus lateralis and then sweep was made toward the anterior aspect of the patient along the course of the femoral neck and head. Abductor split was then completed. The gluteus minimus and capsule were then incised and then soft tissue was dissected anteriorly. Next as the soft tissue was dissected anteriorly the lesser trochanter was clearly identified and hip was dislocated with relative ease. Hypertrophic osteophytes were noted circumferentially. The hip joint was noted to be noticeably tight. Next the sagittal saw was used to resect the proximal portion of the femoral neck and head approximately one fingerbreadth proximal to the lesser trochanter. Head was then removed and next the labrum was excised from the acetabulum with a 20 blade scalpel and long forceps. Next the wound was irrigated with pulsatile lavage and the pulvinar was then excised from the acetabulum. Appropriate retractors were placed anteriorly superiorly and posteriorly. Next initial acetabular reamer was placed 44 mm medialized to the medial wall and then sequential reaming was performed to size 56 mm. Trial cage was then placed and noted to be stable with excellent fit. Next the wound was irrigated with pulsatile lavage with bacitracin additive and Trident II acetabular shell 56 mm PSL cup was impacted and then 5.6 mm hex screws x2 screws were used to stabilize the acetabular shell. Next Trident X3 10-degree polyethylene 36 mm insert was impacted into the shell. Lap sponge was placed over to protect it. Next, attention was turned toward the proximal femur. Box osteotome was used to resect proximal portion of bone followed by first pass small reamer. Next, sequential broaching was performed up to size 4 and the 4 trial was placed followed by +0 36 mm trial head. Next, the hip trials were reduced with increased effort due to tissue impingement and had excellent fit and feel with minimal shuck and excellent stability in all planes and range of motion. Leg lengths were restored and next all trial implants were removed. The wound was copiously irrigated with pulsatile lavage and Columbia Accolade II, press-fit size 4 femoral neck x 132 degree final stem was impacted. Next, Biolox delta V40 femoral head, +0 neck x 36 mm diameter was impacted. The construct was reduced. Range of motion was performed and noted to be completely stable with excellent range of motion, improved to greater degree than prior to surgery. Two 10 Welsh single Hemovac drains were placed exiting anterolaterally. Wound was irrigated with pulsatile lavage. Next a #5 ultra braid suture was used to close the capsule and gluteus minimum via two small bone tunnels made with 2.4 mm drill bit in the greater trochanter. After ultra braid closure was completed and noted to be stable then 10 Welsh drains were placed followed by closure of the vastus lateralis and the gluteus medius. This was closed with #1 Vicryl sutures. Next, the iliotibial band was closed using interrupted [id number] #1 Vicryl sutures. Next, final irrigation was performed with pulsatile lavage and dermis was closed using buried interrupted 2-0 Vicryl suture with increased time and effort due to multiple layers of closure due to enhanced adipose layer thickness. The skin was closed with skin wilian. A wound VAC system was applied to reduce risk of wound complications due to high BMI. Sterile compressive dressing was applied. The patient was then placed supine and taken to recovery in stable condition. Job ID: [id number] [facility]
[2021-11-19] MEDS ORDERED: NITROGLYCERIN SL 0.4 MG/TAB TAB SL PRN (20:13)
[2021-11-19] MEDS ORDERED: ALBUTEROL HFA 8 GM INHALER INH PRN (20:13)
[2021-11-19] MEDS ORDERED: MECLIZINE HCL 25 MG TAB PO PRN (20:13)
[2021-11-19] MEDS ORDERED: ALBUTEROL 0.083% NEBU SOLN 3 ML VIAL INH PRN ×2 (20:13→20:48)
[2021-11-19] MEDS ORDERED: GLUCOSE 10 TAB/TUBE PO PRN (20:45)
[2021-11-19] MEDS ORDERED: DEXTROSE 50% 50 ML SYRINGE IV PRN (20:45)
[2021-11-19] MEDS ORDERED: CARBOHYDRATES FOR HYPOGLYCEMIA PO PRN (20:45)
[2021-11-19] MEDS ORDERED: GLUCAGON FOR INJ 1 MG VIAL IM PRN (20:45)
[2021-11-19] MEDS ORDERED: GLUCOSE 40% GEL 15 GM TUBE PO PRN (20:45)
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
[2021-11-19] MEDS ORDERED: AMITRIPTYLINE HCL 25 MG TAB PO SCH (21:00)
[2021-11-19] MEDS ORDERED: ATORVASTATIN 40 MG TAB PO SCH (21:00)
[2021-11-19] MEDS ORDERED: SENNA 8.6 MG TAB PO SCH (21:00)
[2021-11-19] MEDS ORDERED: MONTELUKAST SODIUM 10 MG TABLET PO SCH (21:00)
[2021-11-19] MEDS: ACETAMINOPHEN 500 MG TAB PO SCH (21:02)
[2021-11-19] MEDS: GABAPENTIN 400 MG CAP PO SCH (21:03)
[2021-11-19] MEDS: CeleBREX 200 MG CAP PO SCH (21:04)
[2021-11-19] MEDS: DOCUSATE SODIUM 100 MG CAP PO SCH (21:05)
[2021-11-19] MEDS: ASPIRIN 81 MG ECTAB PO SCH (21:06)
[2021-11-19] MEDS: ceFAZolin 2000MG 2,000 MG/15 ML SYR IV SCH (21:09)
--- NOTE | 2021-11-19 21:09 | Anesthesiology Progress Note ---
Date of Service November 19, 2021 Anesthesia Post Procedure Vital Signs Vital Signs: Temp Pulse Resp BP BP Pulse Ox O2 Del Method 11/19/21 20:50 98.1 F 72 16 108/63 97 Nasal Cannula 11/19/21 20:20 97.9 F 75 16 110/71 96 Nasal Cannula 11/19/21 19:50 97.7 F 77 16 136/39 L 94 Nasal Cannula 11/19/21 19:30 85 14 114/69 98 Nasal Cannula 11/19/21 19:15 71 14 101/43 L 97 Nasal Cannula 11/19/21 19:00 97.7 F 71 14 120/75 95 Room Air 11/19/21 18:50 63 14 116/74 95 Room Air 11/19/21 18:40 71 14 101/61 95 Room Air 11/19/21 18:30 60 14 107/55 L 98 Oxymask 11/19/21 18:22 97.5 F L 69 12 118/51 L 94 Oxymask 11/19/21 12:26 98.4 F 63 20 147/83 H 98 Room Air O2 Flow Rate 11/19/21 20:50 2 11/19/21 20:20 2 11/19/21 19:50 2 11/19/21 19:30 2 11/19/21 19:15 2 11/19/21 19:00 11/19/21 18:50 11/19/21 18:40 11/19/21 18:30 5 11/19/21 18:22 5 11/19/21 12:26 Pain Intensity Left Hip: Pain Intensity: 6 Transfer of Care Handoff Completed per policy Notes Mental Status: alert / awake / arousable and participated in evaluation Patient Amnestic to Procedure: Yes Nausea / Vomiting: adequately controlled Pain: adequately controlled Airway Patency, RR, SpO2: stable & adequate BP & HR: stable & adequate Hydration State: stable & adequate Neuraxial Anesthesia: was administered and sensory block is resolving Anesthetic Complications: no major complications apparent and Pt Satisfied with anesthetic care
[2021-11-19] MEDS: METOPROLOL TARTRATE 50 MG TAB PO SCH (21:17)
[2021-11-19] MEDS: INSULIN ASPART PER UNIT SC SCH (21:24)
[2021-11-19] MEDS: SODIUM CHLORIDE 0.9% 1000ML 1,000 ML IV SCH (21:25)
[2021-11-19] MEDS: HYDROmorphone INJ 0.5 MG/0.5 ML SYR IV PRN (23:07)
[2021-11-19] MEDS ORDERED: TRANEXAMIC ACID / 0.7% NACL 1,000 MG/100 ML BAG IV SCH (23:30)
[2021-11-20] MEDS: HYDROmorphone INJ 0.5 MG/0.5 ML SYR IV PRN (02:48)
[2021-11-20] MEDS: ceFAZolin 2000MG 2,000 MG/15 ML SYR IV SCH (05:43)
[2021-11-20] MEDS: ACETAMINOPHEN 500 MG TAB PO SCH ×2 (05:43→13:18)
--- NOTE | 2021-11-20 06:24 | Orthopedic Progress Note ---
Date of Service November 20, 2021 Assessment & Plan (1) Status post total hip replacement, left: Plan: POD #1 s/p Left KRISTINE pt/ot dvt proph with JAVAD/SCD/ASA plan for d/c home after physical therapy today. 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 She states that she did this after her right hip replacement as well and was comfortable with this. Patient understands her hip precautions as well as home exercises to perform. We discussed this in detail, we will reevaluate her at 2 weeks in the office and if needed will encourage her to attend formal physical therapy. Admission and Anticipated Discharge Date Admission Date: November 19, 2021 Supervising Physician Co-Signing Physician Notes Patient seen and examined. Agree with MERI Hart's note as above. Patient is doing very well. She says she has a little bit more pain than she remembers having her opposite right hip after that surgery, but overall pain is well controlled and she is mobilizing well. She just finished her therapy session with OT, and is awaiting her PT session. She is well versed in hip precautions, and reviewed those today with OT. She is ambulating in her bedroom, but will ambulate in the hallway during her therapy session. Plan for discharge home today after PT. Subjective POD #1 s/p Left KRISTINE by Dr Jordan Review of Systems Constitutional: no fever, no chills and no sweats Respiratory: no cough and no dyspnea Cardiovascular: no chest pain and no dyspnea Gastrointestinal: no abdominal pain, no nausea and no vomiting Physical Exam Physical Exam: Vital Signs Temp Pulse Resp BP BP Pulse Ox O2 Del Method 11/20/21 03:00 36.9 C 62 18 98/58 L 92 Room Air 11/19/21 22:50 37.0 C 62 16 95/53 L 93 Room Air 11/19/21 21:50 37.2 C 89 18 145/71 H 95 Room Air 11/19/21 20:50 36.7 C 72 16 108/63 97 Nasal Cannula 11/19/21 20:20 36.6 C 75 16 110/71 96 Nasal Cannula 11/19/21 19:50 36.5 C 77 16 136/39 L 94 Nasal Cannula 11/19/21 19:30 85 14 114/69 98 Nasal Cannula 11/19/21 19:15 71 14 101/43 L 97 Nasal Cannula 11/19/21 19:00 36.5 C 71 14 120/75 95 Room Air 11/19/21 18:50 63 14 116/74 95 Room Air 11/19/21 18:40 71 14 101/61 95 Room Air 11/19/21 18:30 60 14 107/55 L 98 Oxymask 11/19/21 18:22 36.4 C L 69 12 118/51 L 94 Oxymask 11/19/21 12:26 36.9 C 63 20 147/83 H 98 Room Air O2 Flow Rate 11/20/21 03:00 11/19/21 22:50 11/19/21 21:50 11/19/21 20:50 2 11/19/21 20:20 2 11/19/21 19:50 2 11/19/21 19:30 2 11/19/21 19:15 2 11/19/21 19:00 11/19/21 18:50 11/19/21 18:40 11/19/21 18:30 5 11/19/21 18:22 5 11/19/21 12:26 Intake and Output 11/19/21 11/19/21 11/20/21 14:59 22:59 06:59 Intake Total 0 / 2260 2020 / 2260 240 / 2260 Output Total 255 / 955 700 / 955 Balance 0 / 1305 1765 / 1305 -460 / 1305 Intake: IV 0 / 300 300 / 300 Lactated Ringe r's 1,000 ml @ 15 0 / 0 mls/hr IV .Q24 H JAMARI Rx#: [id number] Tranexamic Aci d / 0.7% NaCl 1, 300 / 300 000 mg In 100 ml @ 600 mls/hr IV Q6H JAMARI Rx# :[id number] IV Perioperative 1600 / 1600 Oral 120 / 360 240 / 360 Output: Urine 700 / 700 Estimated Blood Loss 150 / 150 Drain Output 105 / 105 Left Hip Hemov ac 105 / 105 Other: # Unmeasured Voi ds 1 Weight 103.6 kg Weight Measureme nt Method Standing Scale Patient Weight 11/20/21 06:59 Weight 103.6 kg Musculoskeletal: Left Leg: NVDI, calf SNT, negative denzel sign. DP palpable, able to wiggle toes/ankle movement without difficulty. Prevena dressing clean dry and intact. Results & Data ([facility]) Vital Signs (Past 12 Hours) Vital Signs Temp Pulse Resp BP BP Pulse Ox O2 Del Method 11/20/21 03:00 36.9 C 62 18 98/58 L 92 Room Air 11/19/21 22:50 37.0 C 62 16 95/53 L 93 Room Air 11/19/21 21:50 37.2 C 89 18 145/71 H 95 Room Air 11/19/21 20:50 36.7 C 72 16 108/63 97 Nasal Cannula 11/19/21 20:20 36.6 C 75 16 110/71 96 Nasal Cannula 11/19/21 19:50 36.5 C 77 16 136/39 L 94 Nasal Cannula 11/19/21 19:30 85 14 114/69 98 Nasal Cannula 11/19/21 19:15 71 14 101/43 L 97 Nasal Cannula 11/19/21 19:00 36.5 C 71 14 120/75 95 Room Air 11/19/21 18:50 63 14 116/74 95 Room Air 11/19/21 18:40 71 14 101/61 95 Room Air 11/19/21 18:30 60 14 107/55 L 98 Oxymask 11/19/21 18:22 36.4 C L 69 12 118/51 L 94 Oxymask O2 Flow Rate 11/20/21 03:00 11/19/21 22:50 11/19/21 21:50 11/19/21 20:50 2 11/19/21 20:20 2 11/19/21 19:50 2 11/19/21 19:30 2 11/19/21 19:15 2 11/19/21 19:00 11/19/21 18:50 11/19/21 18:40 11/19/21 18:30 5 11/19/21 18:22 5 Laboratory Results Vital Signs Temp 36.9 C 11/20/21 03:00 Pulse 62 11/20/21 03:00 Resp 18 11/20/21 03:00 BP 98/58 L 11/20/21 03:00 Pulse Ox 92 11/20/21 03:00 O2 Del Method 11/20/21 03:00 O2 Flow Rate 2 11/19/21 20:50 Intake & Output 11/19/21 11/19/21 11/20/21 06:59 18:59 06:59 Intake Total 1600 / 2260 660 / 2260 Output Total 180 / 955 775 / 955 Balance 1420 / 1305 -115 / 1305 Weight 103.6 kg Intake: IV 0 / 300 300 / 300 Lactated Ringer's 1,000 ml @ 15 0 / 0 mls/hr IV .Q24H JAMARI Rx#: [id number] Tranexamic Acid / 0.7% NaCl 1, 300 / 300 000 mg In 100 ml @ 600 mls/hr IV Q6H JAMARI Rx#:[id number] IV Perioperative 1600 / 1600 Oral 360 / 360 Output: Urine 700 / 700 Estimated Blood Loss 150 / 150 Drain Output 30 / 105 75 / 105 Left Hip Hemovac 30 / 105 75 / 105 Other: # Unmeasured Voids 1 Weight Measurement Method Standing Scale
[2021-11-20] MEDS ORDERED: LEVOTHYROXINE SODIUM 175 MCG TABLET PO SCH (06:30)
[2021-11-20] MEDS: SODIUM CHLORIDE 0.9% 1000ML 1,000 ML IV SCH (06:51)
[2021-11-20 07:19] LABS: Basophils # (auto) 0.02 K/uL (0-0.2); Basophils % (auto) 0.2 %; Hematocrit (blood only) 26.8 % (34.1-44.9); Hemoglobin 8.5 g/dl (12.0-16.0); Immature Granulocytes # (auto) 0.04 K/uL (0.00-0.02); Immature Granulocytes % (auto) 0.4 %; Lymphocytes # (auto) 1.29 K/uL (1.2-3.4); Lymphocytes % (auto) 12.7 %; Mean Corpuscular Hemoglobin 29.6 pg (25.0-34.0); Mean Corpuscular Hgb Conc 31.7 g/dL (32.0-36.0); Mean Corpuscular Volume 93.4 fL (80.0-100.0); Mean Platelet Volume 10.3 fL (9.4-12.3); Monocytes # (auto) 0.59 K/uL (0.24-0.82); Monocytes % (auto) 5.8 %; Neutrophils # (auto) 8.25 K/uL (1.4-6.5); Neutrophils % (auto) 80.9 %; Platelet Count 253 K/uL (130-400); RDW Standard Deviation 48.2 fL (36.4-46.3); Red Blood Count 2.87 M/uL (3.93-5.22); White Blood Count 10.19 K/ul (4.8-10.8)
[2021-11-20] MEDS: oxyCODONE HCL IR 5 MG TAB (IMMEDIATE RELEASE) PO PRN ×3 (07:36→15:34)
[2021-11-20 07:41] LABS: BUN Creatinine Ratio 15.3 (10-20); Calcium 8.5 mg/dl (8.5-10.1); Creatinine Clr Calc Pharmacy 90.8 ml/min; Est GFR (African American) 104.8 ml/min; Est GFR (Non-African American) 90.4 ml/min; Potassium 4.3 mmol/L (3.5-5.1)
[2021-11-20] MEDS ORDERED: MULTIVITAMIN TAB PO SCH (09:00)
[2021-11-20] MEDS ORDERED: FLUTICASONE PROPIONATE NA SPR 16 GM BTL SCH (09:00)
[2021-11-20] MEDS ORDERED: FLUTICASONE/VILANTEROL 200/25MCG 14 PUFFS/INHALER INH SCH (09:00)
[2021-11-20] MEDS ORDERED: SPIRONOLACTONE 12.5 MG TAB PO SCH (09:00)
[2021-11-20] MEDS ORDERED: CALCIUM POLYCARBOPHIL 625MG TAB PO SCH (09:00)
[2021-11-20] MEDS ORDERED: FUROSEMIDE 40 MG TAB PO SCH (09:00)
[2021-11-20] MEDS ORDERED: PANTOprazole 40 MG TAB PO SCH (09:00)
[2021-11-20] MEDS ORDERED: ESCITALOPRAM OXALATE 20 MG TAB PO SCH (09:00)
[2021-11-20] MEDS ORDERED: DULoxetine HCL 60 MG CAP PO SCH (09:00)
[2021-11-20] MEDS ORDERED: CALCIUM CARBONATE 1250MG TAB PO SCH (09:00)
[2021-11-20] MEDS: ASPIRIN 81 MG ECTAB PO SCH (09:27)
[2021-11-20] MEDS: GABAPENTIN 400 MG CAP PO SCH ×2 (09:27→13:18)
[2021-11-20] MEDS: METOPROLOL TARTRATE 50 MG TAB PO SCH (09:27)
[2021-11-20] MEDS: CeleBREX 200 MG CAP PO SCH (09:28)
[2021-11-20] MEDS: DOCUSATE SODIUM 100 MG CAP PO SCH (09:28)
[2021-11-20] MEDS: INSULIN ASPART PER UNIT SC SCH ×2 (09:29→13:18)
--- NOTE | 2021-11-20 13:38 | Hospitalist Progress Note ---
Date of Service November 20, 2021 Assessment & Plan (1) Status post total hip replacement, left: Plan: Post op day# 1 S/P left total hip arthroplasty by Dr Julian SHARMA#150ml -pain management per ortho -wound management per ortho -PT/OT as appropriate -DVT prophylaxis per ortho -incentive spirometry -monitor H&H for acute blood loss anemia; Pre-op Hgb: 13.5 (2) Tachy-kee syndrome: Plan: S/P pacemaker (3) DM type 2 (diabetes mellitus, type 2): Plan: A1c: 6.3 on 10/12/2021 POCT glucose within range. Hold metformin Insulin sliding scale per protocol. Glycemic pharmacy managing. Appreciate management (4) Hypertension: Plan: Continue metoprolol tartrate Continue to hold on Lasix and spironolactone for now. We will resume tomorrow. (5) Hyperlipidemia: Plan: Continue atorvastatin (6) Asthma: Plan: Occasional wheezes heard. Started on duo nebs every 8 hours. (7) Hypothyroidism: Plan: TSH: 0.67 on 11/10/2021 Continue levothyroxine DVT Prophylaxis SCDs Disposition per primary service Follows with Dr Osmani Cunningham in [place] for routine care Thank you for this consultation. We will follow the patient with you during their hospital stay. You can reach a member of the [facility]ist Team 10/10 via [employer] Admission and Anticipated Discharge Date Admission Date: November 19, 2021 Subjective Patient seen and examined at bedside. She is sitting up on the chair; not in any acute distress. She says she was able to get out of the bed and walk to the bathroom. She has not had a bowel movement yet. No complaint of fever, chills, shortness of breath, abdominal pain or urinary symptoms. Review of Systems Review of Systems: All systems reviewed & are unremarkable except as noted in Subjective Physical Exam Physical Exam: General: no distress, WDWN Head: normocephalic, atraumatic Eyes: conjunctiva non-injected, anicteric ENT: normal inspection external ears, nose, mucous membranes moist Neck: supple, trachea midline Lungs: Occasional wheeze heard. CV: RRR, no murmur, no pretibial edema Abd: normal BS, soft, non-tender Ext: no cyanosis, no calf tenderness; pedal pushes and pulls intact bilaterally, sensation to light touch intact Neuro: A&O x 3, no focal deficits noted, normal affect Skin: warm, dry Results & Data Results & Data ([facility]) Vital Signs (Past 12 Hours) Vital Signs Temp Pulse Pulse Resp BP BP Pulse Ox 11/20/21 09:20 77 124/71 11/20/21 08:11 11/20/21 07:54 37.2 C 67 16 103/61 94 11/20/21 03:00 36.9 C 62 18 98/58 L 92 O2 Del Method 11/20/21 09:20 11/20/21 08:11 Room Air 11/20/21 07:54 Room Air 11/20/21 03:00 Room Air Laboratory Results Laboratory Results WBC 10.19 K/ul (4.8-10.8) 11/20/21 06:33 RBC 2.87 M/uL (3.93-5.22) L 11/20/21 06:33 Hgb 8.5 g/dl (12.0-16.0) L 11/20/21 06:33 Hct 26.8 % (34.1-44.9) L 11/20/21 06:33 MCV 93.4 fL (80.0-100.0) 11/20/21 06:33 MCH 29.6 pg (25.0-34.0) 11/20/21 06:33 MCHC 31.7 g/dL (32.0-36.0) L 11/20/21 06:33 RDW Std Deviation 48.2 fL (36.4-46.3) H 11/20/21 06:33 RDW Coeff of Joseph 14.0 % (11.5-14.5) 11/20/21 06:33 Plt Count 253 K/uL (130-400) 11/20/21 06:33 MPV 10.3 fL (9.4-12.3) 11/20/21 06:33 Immature Gran % (Auto) 0.4 % 11/20/21 06:33 Neut % (Auto) 80.9 % 11/20/21 06:33 Lymph % (Auto) 12.7 % 11/20/21 06:33 [place] % (Auto) 5.8 % 11/20/21 06:33 Eos % (Auto) 0.0 % 11/20/21 06:33 Baso % (Auto) 0.2 % 11/20/21 06:33 Neut # (Auto) 8.25 K/uL (1.4-6.5) H 11/20/21 06:33 Lymph # (Auto) 1.29 K/uL (1.2-3.4) 11/20/21 06:33 [place] # (Auto) 0.59 K/uL (0.24-0.82) 11/20/21 06:33 Eos # (Auto) 0.00 K/uL (0-0.50) 11/20/21 06:33 Baso # (Auto) 0.02 K/uL (0-0.2) 11/20/21 06:33 Immature Gran # (Auto) 0.04 K/uL (0.00-0.02) H 11/20/21 06:33 Sodium 135 mmol/L (136-145) L 11/20/21 06:33 Potassium 4.3 mmol/L (3.5-5.1) 11/20/21 06:33 Chloride 107 mmol/L (98-107) 11/20/21 06:33 Carbon Dioxide 23 mmol/L (21-32) 11/20/21 06:33 Anion Gap 5 (3-11) 11/20/21 06:33 BUN 11 mg/dl (6-23) 11/20/21 06:33 Creatinine 0.72 mg/dl (0.6-1.2) 11/20/21 06:33 Est Cr Clr Drug Dosing 90.8 ml/min 11/20/21 06:33 Est GFR ( Amer) 104.8 ml/min 11/20/21 06:33 Est GFR (Non-Af Amer) 90.4 ml/min 11/20/21 06:33 BUN/Creatinine Ratio 15.3 (10-20) 11/20/21 06:33 Glucose 153 mg/dl (70-99(Fasting)) H 11/20/21 06:33 POC Glucose 112 mg/dl (70-99) H 11/20/21 12:24 Calcium 8.5 mg/dl (8.5-10.1) 11/20/21 06:33 SARS-CoV-2, RNA, NAAT NEGATIVE (NEGATIVE) 11/19/21 Unknown Impressions Hip/Pelvis X-Ray 11/19/21 17:32 XR hip 1V LT w pelvis CLINICAL HISTORY: IN PACU - Post Surgical TECHNIQUE: 2 views of the left hip and single frontal view of the pelvis were obtained. Comparison: Comparison is made to hip radiograph 11/19/2019 FINDINGS: Patient is status post placement of left total hip arthroplasty with expected postoperative changes including subcutaneous emphysema. No fracture or hardware fracture is seen. IMPRESSION: Expected postoperative appearance status post placement of total hip arthroplasty. ACT 112: Negative or not required by law. Electronically signed by: Gen Samson M.D. 11/19/2021 6:54 PM
[2021-11-20] MEDS ORDERED: ALBUT/IPRATROP 3MG/0.5MG NEB 3 ML VIAL NEB SCH (15:00)
[2021-11-20] MEDS ORDERED: metFORMIN HCL 850 MG TAB PO SCH (21:00)
--- NOTE | 2021-11-23 13:44 | Discharge Summary ---
Date of Service November 23, 2021 Admission HPI Per Admitting Provider This is a patient with a long history of left hip and groin pain. She was treated conservatively for left hip osteoarthritis. However, she has failed all conservative management. She is now being set up for left total hip arthroplasty. Principal Diagnosis left hip osteoarthritis Discharge Exam Constitutional well developed and well nourished; no acute distress ENMT external ear and nose normal, oropharynx normal Neck trachea midline Respiratory normal respiratory effort, lungs clear to auscultation Cardiovascular Rate/Rhythm: regular rate and regular rhythm Gastrointestinal (Abdomen) normal bowel sounds, soft, nontender, no hepatosplenomegaly Musculoskeletal Hip: + surgical incision (left hip: Prevena in place and functioning); no skin erythema and no ecchymosis Skin no rashes, warm and dry Trauma: no evidence of skin trauma Neurologic normal touch/pain/proprioception Psychiatric A+Ox3, euthymic affect Speech: normal rate/rhythm/volume of speech Lymphatic no cervical or axillary lymphadenopathy Discharge Data Allergies Allergy/AdvReac Type Severity Reaction Status Date / Time tetracycline Allergy Intermediate Hives, SOB Verified 11/19/21 12:18 Consultations 11/19/21 17:32 Consult Internal Medicine Routine Procedures Performed Operation Date: 08/17/21 09:50 <No data on this case meets the specified criteria> Operation Date: 11/19/21 14:05 Actual Procedures p Left Hip Total Hip Arthroplasty(Left) - Jericho Jordan DO Hospital Course (1) Status post total hip replacement, left: POD #1 s/p Left KRISTINE pt/ot dvt proph with JAVAD/SCD/ASA plan for d/c home after physical therapy today. She states that her [id number] is a home nurse and she is comfortable providing her care postoperatively. She states that she did this after her right hip replacement as well and was comfortable with this. Patient understands her hip precautions as well as home exercises to perform. We discussed this in detail, we will reevaluate her at 2 weeks in the office and if needed will encourage her to attend formal physical therapy. Total Time Total Time Spent Total Time Spent (In Minutes): 20 Discharge Plan Discharge Items Patient Disposition: Home - Self-Care Reason For Visit: Left Hip Osteoarthritis Discharge Diagnosis: Left hip osteoarthritis Activity: Per Instructions section Weightbearing Comment: As tolerated Non-emergency contact: Surgeon Call non-emergency contact if: your pain is not controlled, your pain is worsening and your temperature is above 101 Follow-up/Referrals: Osmani Cunningham MD [Primary Care Provider] - Diet: Carb Consistent or DM2 Addtl Attending Provider Instructions: ACTIVITY RECOMMENDATIONS: SELF CARE INSTRUCTIONS AFTER TOTAL HIP REPLACEMENT Until the incision and soft tissues around your hip have healed, there is a possibility that the hip prosthesis could dislocate. A. Observe the following precautions to prevent dislocation: 1. Don't bend your hip greater than 90 degrees. 2. Avoid crossing your legs or ankles while standing or lying. 3. Sit with your feet placed 6 inches apart. 4. When sitting, keep your knees below your hips. Sit on a firm surface, avoid deep, soft chairs and couches. Use an elevated toilet seat in the bathroom. 5. Don't bend over at the waist. Use a long handled shoehorn and a sock aid to help you put on your shoes and socks. A football coach can help you roll picker objects that are too high or too low to reach. 6. Keep car riding to a minimum for at least one month after surgery. B. Your balance may be shaky for a while. Use crutches or a walker until directed by your doctor. C. Use hand rails when walking on stairs. D. Wear low heeled shoes with non-slip soles. E. Be sure that your floors are free of things that could trip you - throw rugs, electrical cords, small objects. Avoid wet and waxed floors, especially with crutches and canes. F. Try to walk several times a day with rest periods between. G. Continue with all the exercises taught to you in the hospital. Again, make walking a part of your daily routine. H. It is okay to shower if minimal to no drainage from incision. No baths. Do not soak wound. I. Physical Therapy as instructed by your Physician. J. Prevena dressing: You have a Prevena dressing on your surgical wound. It will remain in place for 7 days from surgery. You will be provided with a booklet with the do's and don'ts with the dressing in place. After 7 days, the dressing may be removed. If there is drainage from the surgical incision, you may cover the wound with dry dressings SPECIAL CARE INSTRUCTIONS: VERY IMPORTANT TO READ AND REVIEW A. You may still be at risk for phlebitis and blood clots. 1. Wear surgical stockings (JAVAD hose) for one month, 20 hours daily, after surgery to improve circulation and reduce swelling. 2. Take Aspirin (blood thinning medications), as directed by your doctor. 3. Have a pro-time (blood test) drawn according to your doctor's instructions. B. We encourage and will assist you in choosing a home-health agency of your choice. Home health nurses and therapists will monitor your temperature, wound healing and progress in exercise and walking. Home health nurses may also draw the blood for the pro-time test. They may instruct you in decreasing or increasing the amount of Coumadin you take. C. You must take antibiotics before having dental work, bladder, bowel and other surgery. Your doctor will provide you with a permanent card to carry describing precautions. D. Call [facility] if you have a temperature of 101 or greater, redness or swelling around the incision, cloudy drainage from incision, or sudden increase in pain in your hip, not relieved by your regular pain medication. E. Please call the office at if you have any concerns or questions about your operation or recovery. FOLLOW UP VISIT: If appointment is not already scheduled: Please call [facility] to make a follow-up appointment for 2 weeks after your surgery at . Pending Studies at Discharge: No Stand-Alone Forms: My [facility], Opioid Pain Management, Smoking Cessation Medications and DC Order Prescriptions: New aspirin 81 mg Tablet,Delayed Release (Dr/Ec) 81 mg PO BID 30 Days Qty: 60 0RF acetaminophen [Tylenol Extra Strength] 500 mg Tablet 1,000 mg PO Q8 21 Days Qty: 126 0RF oxycodone 5 mg Tablet 5 - 10 mg PO Q6H PRN (Reason: pain) Qty: 30 0RF Rx Instructions: Ongoing therapy, supervising Dr. Brody Jordan. Max 6 tabs in 24 hours docusate sodium 100 mg Capsule 100 mg PO BID 10 Days Qty: 20 0RF Continued metoprolol tartrate 50 mg tablet 50 mg PO BID Qty: 180 3RF multivitamin [Multiple Vitamins] Tablet 1 tab PO QAM albuterol sulfate 0.63 mg/3 mL Solution For Nebulization 0.63 mg INHALATION UD PRN (Reason: Shortness Of Breath) gabapentin 400 mg Capsule 800 mg PO TID metformin 850 mg Tablet 850 mg PO BID spironolactone 25 mg Tablet 12.5 mg PO QAM calcium carbonate [Calcium 600] 600 mg calcium (1,500 mg) Tablet 600 mg PO QAM fluticasone propion-salmeterol [Advair Diskus] 500-50 mcg/dose Blister With Device 1 inh INHALATION BID calcium polycarbophil [Fiber (calcium polycarbophil)] 625 mg Tablet 625 mg PO QAM nitroglycerin 0.4 mg Tablet, Sublingual 1 tab Sublingual UD PRN (Reason: Chest Pain) Label Comments: last use a yr or so ago montelukast [Singulair] 10 mg Tablet 10 mg PO HS furosemide 20 mg Tablet 40 mg PO QAM albuterol sulfate [Ventolin HFA] 90 mcg/actuation Hfa Aerosol Inhaler 2 puff INHALATION UD PRN (Reason: Shortness Of Breath) fluticasone propionate [Flonase Allergy Relief] 50 mcg/actuation [place],Suspension 2 spray INTRANASAL QAM duloxetine [Cymbalta] 60 mg Capsule,Delayed Release(Dr/Ec) 60 mg PO QAM levothyroxine [Synthroid] 175 mcg tablet 175 mcg PO QAM meclizine 25 mg tablet 12.5 - 25 mg PO Q8H PRN (Reason: Vertigo) Rx Instructions: Take 1/2 to 1 tablet by mouth every 8 hours as needed for vertigo amitriptyline 25 mg tablet 25 mg PO HS atorvastatin 80 mg tablet 80 mg PO HS celecoxib [Celebrex] 200 mg capsule 200 mg PO BID estradiol [Estrace] 1 mg tablet 1 mg PO WK Rx Instructions: ( pt verified pat call 10/11/21) pantoprazole [Protonix] 40 mg tablet,delayed release (DR/EC) 40 mg PO QAM escitalopram oxalate [Lexapro] 20 mg tablet 20 mg PO QAM Discontinued aspirin 81 mg Tablet,Delayed Release (Dr/Ec) 81 mg PO HS Discharge Orders: Discharge Order (Routine); Ordered 11/20/21 Ordered By: Melecio Dior/Other Patient Handouts: DVT Post Op Prevention Admission Data Admit Date/Time: 11/19/21 17:32 Attending Provider: Jericho Jordan Admit Provider: Jericho Jordan Primary Care Provider: Osmani Cunningham Other Providers: Montse Santos ; Carolynn Leary I. ; Chandler Contreras ; Torres Curry ; Mara Roth ; Stefanie Mathis ; Hailey Ibrahim ; Bear Longoria ; Walter Gillette ; Kashmir Chauahn ; Nohemi Faith ; Carl Gray ; Zaida De La Garza ; Bushra Osei ; Vasquez Mohr ; Rosalba Ferraro ; Meme Lopes ; Addy Madrigal ; Ying Alvares I. ; Darnell Colon ; Jones Edwards ; Helio Melton ; Dariel FernandeshAna Cristina ; Jose Manuel Navarro ; Denny Mike ; Bhavesh Rooney ; Tomi Ordaz Other Interventions: Discharge Summary Assessment (RN) Last Done: 11/20/21 12:43
[2021-11-25] MEDS ORDERED: estradioL 1 MG TAB PO SCH (09:00)
== END 2021-11-20 15:49 | disposition home or self-care (01) ==
LOC: 3N 11:09 → ASU 11:09

== ENCOUNTER 2022-06-27 10:26 | Observation (INO) ==
--- NOTE | 2022-06-03 12:04 | PAT Medication Instructions ---
Medication Instructions Date of Service June 03, 2022 Home Medications Medication Instructions Recorded metoprolol tartrate 50 mg tablet 50 mg PO BID #180 tabs 09/01/21 albuterol sulfate 0.63 mg/3 mL solution for nebulization 0.63 mg inhalation UD PRN Shortness Of Breath albuterol sulfate 90 mcg/actuation aerosol inhaler (Ventolin HFA) 2 puff inhalation UD PRN Shortness Of Breath calcium carbonate 600 mg calcium (1,500 mg) tablet (Calcium) 600 mg PO QAM calcium polycarbophil 625 mg tablet (Fiber (calcium polycarbophil)) 625 mg PO QAM duloxetine 60 mg capsule,delayed release (Cymbalta) 60 mg PO QAM fluticasone 500 mcg-salmeterol 50 mcg/dose blistr powdr for inhalation (Advair Diskus) 1 inh inhalation BID fluticasone propionate 50 mcg/actuation nasal spray,suspension (Flonase Allergy Relief) 2 spray intranasal QAM furosemide 20 mg tablet 40 mg PO QAM gabapentin 400 mg capsule 800 mg PO TID metformin 850 mg tablet 850 mg PO BID montelukast 10 mg tablet (Singulair) 10 mg PO HS multivitamin (Multiple Vitamins tablet) 1 tab PO QAM nitroglycerin 0.4 mg sublingual tablet 1 tab sublingual UD PRN Chest Pain spironolactone 25 mg tablet 12.5 mg PO QAM amitriptyline 25 mg tablet 25 mg PO HS atorvastatin 80 mg tablet 80 mg PO HS celecoxib 200 mg capsule (Celebrex) 200 mg PO BID escitalopram oxalate 20 mg tablet (Lexapro) 20 mg PO QAM estradiol 1 mg tablet (Estrace) 1 mg PO WK pantoprazole 40 mg tablet,delayed release (Protonix) 40 mg PO QAM metoprolol tartrate 50 mg tablet 50 mg PO BID levothyroxine 175 mcg tablet (Synthroid) 175 mcg PO QAM meclizine 25 mg tablet 12.5 - 25 mg PO Q8H PRN Vertigo aspirin 81 mg tablet,delayed release 81 mg PO QAM Continue as directed nitroglycerin 0.4 mg sublingual tablet 1 tab sublingual UD PRN Chest Pain (if needed) ASK your surgeon for instructions celecoxib 200 mg capsule (Celebrex) 200 mg PO BID ASK your prescriber and surgeon estradiol 1 mg tablet (Estrace) 1 mg PO WK DO NOT take the morning of surgery calcium carbonate 600 mg calcium (1,500 mg) tablet (Calcium) 600 mg PO QAM calcium polycarbophil 625 mg tablet (Fiber (calcium polycarbophil)) 625 mg PO QAM furosemide 20 mg tablet 40 mg PO QAM metformin 850 mg tablet 850 mg PO BID multivitamin (Multiple Vitamins tablet) 1 tab PO QAM spironolactone 25 mg tablet 12.5 mg PO QAM Take morning of surgery With a small sip of water, OTHERWISE NOTHING TO EAT OR DRINK AFTER MIDNIGHT: albuterol sulfate 0.63 mg/3 mL solution for nebulization 0.63 mg inhalation UD PRN Shortness Of Breath (if needed) albuterol sulfate 90 mcg/actuation aerosol inhaler (Ventolin HFA) 2 puff inhalation UD PRN Shortness Of Breath (use if needed; please bring with you to hospital day of surgery if possible) duloxetine 60 mg capsule,delayed release (Cymbalta) 60 mg PO QAM fluticasone 500 mcg-salmeterol 50 mcg/dose blistr powdr for inhalation (Advair Diskus) 1 inh inhalation BID fluticasone propionate 50 mcg/actuation nasal spray,suspension (Flonase Allergy Relief) 2 spray intranasal QAM gabapentin 400 mg capsule 800 mg PO TID escitalopram oxalate 20 mg tablet (Lexapro) 20 mg PO QAM pantoprazole 40 mg tablet,delayed release (Protonix) 40 mg PO QAM metoprolol tartrate 50 mg tablet 50 mg PO BID levothyroxine 175 mcg tablet (Synthroid) 175 mcg PO QAM meclizine 25 mg tablet 12.5 - 25 mg PO Q8H PRN Vertigo (if needed) aspirin 81 mg tablet,delayed release 81 mg PO QAM (unless surgeon directed otherwise) Take evening before surgery albuterol sulfate 0.63 mg/3 mL solution for nebulization 0.63 mg inhalation UD PRN Shortness Of Breath (if needed) albuterol sulfate 90 mcg/actuation aerosol inhaler (Ventolin HFA) 2 puff inhalation UD PRN Shortness Of Breath (if needed) fluticasone 500 mcg-salmeterol 50 mcg/dose blistr powdr for inhalation (Advair [place]) 1 inh inhalation BID gabapentin 400 mg capsule 800 mg PO TID metformin 850 mg tablet 850 mg PO BID montelukast 10 mg tablet (Singulair) 10 mg PO HS amitriptyline 25 mg tablet 25 mg PO HS atorvastatin 80 mg tablet 80 mg PO HS metoprolol tartrate 50 mg tablet 50 mg PO BID meclizine 25 mg tablet 12.5 - 25 mg PO Q8H PRN Vertigo (if needed) Other Notes If you have any questions please call us at [phone] or [phone] or [phone] or [phone]
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
[~2022-06-27 10:26] MED LIST changes: -FAMOTIDINE 20 MG TAB PO SCH; -LR 15ML/HR IV SCH; +oxyCODONE HCL 10 MG TABCR (OxyCONTIN) PO SCH
[2022-06-27] MEDS: LACTATED RINGER'S 1,000 ML IV SCH ×2 (11:30→18:22)
[2022-06-27] MEDS ORDERED: fentaNYL citrate PF 100 MCG/2 ML VIAL ONE ×2 (13:22→14:54)
[2022-06-27] MEDS ORDERED: MIDAZOLAM HCL 1 MG/ML 2ML VIAL ONE (13:22)
[2022-06-27] MEDS ORDERED: ATROPINE SULFATE 0.1 MG/ML 10ML SYR IV PRN (13:25)
[2022-06-27] MEDS ORDERED: ONDANSETRON INJ 2 MG/ML 2 ML VIAL IV PRN ×2 (13:25→15:50)
[2022-06-27] MEDS ORDERED: ePHEDrine sulfate 50 MG/ML AMP IV PRN (13:25)
[2022-06-27] MEDS ORDERED: LIDOCAINE 2% MPF LOCAL 5 ML VIAL ONE (13:26)
[2022-06-27] MEDS ORDERED: ONDANSETRON INJ 2 MG/ML 2 ML VIAL ONE ×2 (13:26→16:23)
[2022-06-27] MEDS ORDERED: PROPOFOL IV EMULSION 10 MG/ML 20 ML VIAL IV ONE (13:26)
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
[2022-06-27] MEDS ORDERED: KETAMINE 50 MG/5 ML SYRINGE ONE (14:30)
--- NOTE | 2022-06-27 15:45 | Post Operative Brief Note ---
Immediate Post Op Note v1 Date of Surgery June 27, 2022 Pre & Post Diagnosis Operation Date: 06/27/22 13:20 Pre-Op Diagnosis: Right Shoulder Osteoarthritis Post-Op Diagnosis: Right Shoulder Osteoarthritis I identified the patient and participated in the time-out.: Yes Procedure Operation Date: 06/27/22 13:20 Actual Procedures p Right Total Shoulder Arthroplasty Anatomic(Right) - Yasmany York MD Surgeon Yasmany York MD Landmen Stefanie Phan PA-C Estimated Blood Loss 20 Findings Consistent with Post-Op Diagnosis Osteoarthritis right shoulder Anesthesia Type General Regional Complications No complications
[2022-06-27] MEDS ORDERED: NITROGLYCERIN SL 0.4 MG/TAB TAB SL PRN (15:48)
[2022-06-27] MEDS ORDERED: ALBUTEROL HFA 8 GM INHALER INH PRN (15:48)
[2022-06-27] MEDS ORDERED: NON-FORMULARY MEDICATION (Albuterol Sulfate 0.63 mg/3 mL Solution For Nebulization) INH PRN (15:48)
[2022-06-27] MEDS ORDERED: MECLIZINE HCL 25 MG TAB PO PRN (15:48)
--- NOTE | 2022-06-27 15:48 | Operative Report ---
Post Operative Report Pre & Post Diagnosis Operation Date: 06/27/22 13:20 Pre-Op Diagnosis: Right Shoulder Osteoarthritis Post-Op Diagnosis: Right Shoulder Osteoarthritis I identified the patient and participated in the time-out.: Yes Procedure Operation Date: 06/27/22 13:20 Actual Procedures p Right Total Shoulder Arthroplasty Anatomic(Right) - Yasmany York MD Surgeon Yasmany York MD Office Workforce Planner Stefanie Phan PA-C Estimated Blood Loss 20 Findings Consistent with Post-Op Diagnosis Osteoarthritis right shoulder Specimens Right proximal humerus bone and cartilage Drains No drains Anesthesia Type General Regional Complications No complications Indications Reema is a 61-year-old woman with right shoulder osteoarthritis. After the failure of conservative treatment I recommended a total shoulder replacement. I explained the risk benefits and alternatives to her and she consented to proceed. Description of Procedure Implants: Arthrex Eclipse anatomic total shoulder. Glenoid size small cemented. Humeral size 43 trunnion, 43 x 16 mm humeral head, medial cage screw. Procedure: The patient was taken to the operating room and after verifying their identity and confirming the operative site they were placed in the beachchair position. The operative shoulder was sterilely prepped and draped in usual fashion. A 4 inch incision was made anteriorly just lateral to the coracoid process and extended inferiorly into the axillary folds. The deltopectoral interval was identified and the cephalic vein and deltoid were retracted laterally. Deep self-retaining retractors were placed. The shoulder capsule was exposed. The lesser tuberosity was identified and leaving a cuff of tissue attached to the subscapularis was released and tagged for later repair. The rotator interval was opened. The proximal humerus was exposed. Osteophytes were removed as needed. The humeral head was recut at the anatomic neck. Sizing was carried out and the appropriate sized Arthrex guide was placed. A guidewire was utilized to determine the size of the proximal humerus screw. The protective cap was placed. The glenoid was exposed. Remaining labral tissue was removed including the biceps anchor. The central pin was placed and the glenoid was reamed according to the preoperative plan. Cement was mixed and pressurized into the superior and inferior holes. The polyethylene component was inserted. Attention was turned back to the humerus. The trunnion and cage screw were placed. Trialing of the humeral head was then carried out until the appropriate size thickness was determined that allowed good range of motion, good stability, no signs of impingement and appropriately tension soft tissues. The final humeral components were assembled and impacted into place. The joint was thoroughly irrigated with pulse lavage. The subscapularis was repaired with #2 FiberWire utilizing the preserved cuff of tissue in the lesser tuberosity. 1 suture was placed to close the distal rotator interval. The remaining incision was closed with 0 Vicryl 2-0 Vicryl and the skin with wilian. A sterile Silverlon dressing was applied. A shoulder immobilizer was placed. The patient tolerated the procedure well and there were no intraoperative complications. Stefanie Phan PA-C assisted in all aspects of the procedure including patient positioning, prepping and draping, manipulation of surgical instruments and retractors, wound closure, dressing placement, and compression wrap placement. I attest to the content of the Intraoperative Record and any orders documented therein. Any exceptions are noted below.
[2022-06-27] MEDS ORDERED: NALOXONE HCL 0.4 MG/1 ML VIAL/CARP IV PRN (15:50)
[2022-06-27] MEDS ORDERED: bisacodyL 10 MG SUPP PR PRN (15:50)
[2022-06-27] MEDS ORDERED: MAGNESIUM HYDROXIDE SUSP 30 ML UDC PO PRN (15:50)
[2022-06-27] MEDS: fentaNYL citrate PF 100 MCG/2 ML VIAL IV PRN ×4 (16:16→16:31)
[2022-06-27] MEDS ORDERED: DEXAMETHASONE SOD INJ 4 MG/ML VIAL ONE (16:23)
[2022-06-27] MEDS ORDERED: NEOSTIGMINE METHYLSULFATE 1 MG/ML 10ML VIAL ONE (16:23)
[2022-06-27] MEDS ORDERED: GLYCOPYRROLATE 0.2 MG/ML VIAL ONE (16:23)
[2022-06-27] MEDS ORDERED: HYDROmorphone INJ 0.5 MG/0.5 ML SYR IV PRN (16:41)
[2022-06-27] MEDS: HYDROmorphone INJ 2 MG/ML SYR/VIAL ONE ×2 (16:44→16:47)
[2022-06-27] MEDS ORDERED: HYDROmorphone INJ 2 MG/ML SYR/VIAL IV PRN (16:47)
--- NOTE | 2022-06-27 17:29 | Anesthesiology Progress Note ---
Date of Service June 27, 2022 Anesthesia Post Procedure Vital Signs Vital Signs: Temp Pulse Pulse Resp BP Pulse Ox O2 Del Method 06/27/22 17:05 37.0 C 85 21 132/64 94 Nasal Cannula 06/27/22 16:55 81 20 159/67 H 95 Nasal Cannula 06/27/22 16:45 98 H 18 160/84 H 97 Oxymask 06/27/22 16:35 81 20 144/70 H 95 Oxymask 06/27/22 16:25 95 H 20 143/86 H 98 Oxymask 06/27/22 16:15 36.3 C L 95 H 26 H 163/110 H 96 Oxymask 06/27/22 11:53 36.8 C 64 20 130/70 96 Room Air 06/27/22 11:15 Room Air O2 Flow Rate 06/27/22 17:05 2 06/27/22 16:55 2 06/27/22 16:45 4 06/27/22 16:35 4 06/27/22 16:25 6 06/27/22 16:15 6 06/27/22 11:53 06/27/22 11:15 Pain Intensity Right Shoulder: Pain Intensity: 6 Transfer of Care Handoff Completed per policy Notes Mental Status: alert / awake / arousable and participated in evaluation Patient Amnestic to Procedure: Yes Nausea / Vomiting: adequately controlled Pain: adequately controlled Airway Patency, RR, SpO2: stable & adequate BP & HR: stable & adequate Hydration State: stable & adequate Anesthetic Complications: no major complications apparent and Pt Satisfied with anesthetic care
[2022-06-27] MEDS ORDERED: SODIUM CHLORIDE 0.9% 1000ML 1,000 ML IV SCH (17:45)
[2022-06-27] MEDS ORDERED: Nursing to Pharmacy Communication SCH (18:30)
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
[2022-06-27] MEDS ORDERED: DEXTROSE 50% 50 ML SYRINGE IV PRN (19:33)
[2022-06-27] MEDS ORDERED: CARBOHYDRATES FOR HYPOGLYCEMIA PO PRN (19:33)
[2022-06-27] MEDS ORDERED: GLUCOSE 10 TAB/TUBE PO PRN (19:33)
[2022-06-27] MEDS ORDERED: GLUCAGON FOR INJ 1 MG VIAL SQ PRN (19:33)
[2022-06-27] MEDS ORDERED: GLUCOSE 40% GEL 15 GM TUBE PO PRN (19:33)
[2022-06-27] MEDS: ASPIRIN 81 MG ECTAB PO SCH (20:31)
[2022-06-27] MEDS: GABAPENTIN 800 MG TAB PO SCH (20:32)
[2022-06-27] MEDS: DOCUSATE SODIUM 100 MG CAP PO SCH (20:32)
[2022-06-27] MEDS: oxyCODONE HCL IR 5 MG TAB (IMMEDIATE RELEASE) PO PRN (20:32)
[2022-06-27] MEDS: CeleBREX 200 MG CAP PO SCH (20:32)
[2022-06-27] MEDS: INSULIN ASPART PER UNIT CHARGE SC SCH (20:40)
[2022-06-27] MEDS ORDERED: metFORMIN HCL 850 MG TAB PO SCH (21:00)
[2022-06-27] MEDS ORDERED: SENNA 8.6 MG TAB PO SCH (21:00)
[2022-06-27] MEDS ORDERED: ATORVASTATIN 40 MG TAB PO SCH (21:00)
[2022-06-27] MEDS ORDERED: AMITRIPTYLINE HCL 25 MG TAB PO SCH (21:00)
[2022-06-27] MEDS ORDERED: MONTELUKAST SODIUM 10 MG TABLET PO SCH (21:00)
[2022-06-27] MEDS ORDERED: METOPROLOL TARTRATE 50 MG TAB PO SCH (21:00)
[2022-06-27] MEDS: ACETAMINOPHEN 500 MG TAB PO SCH (22:30)
[2022-06-27] MEDS: ceFAZolin 2000MG 2,000 MG/15 ML SYR IV SCH (22:36)
[2022-06-28] MEDS: oxyCODONE HCL IR 5 MG TAB (IMMEDIATE RELEASE) PO PRN ×3 (00:31→10:55)
[2022-06-28] MEDS: ACETAMINOPHEN 500 MG TAB PO SCH (05:57)
[2022-06-28] MEDS: ceFAZolin 2000MG 2,000 MG/15 ML SYR IV SCH (05:58)
[2022-06-28] MEDS ORDERED: LEVOTHYROXINE SODIUM 175 MCG TABLET PO SCH (06:30)
[2022-06-28 06:40] LABS: Basophils # (auto) 0.01 K/uL (0-0.2); Basophils % (auto) 0.1 %; Hematocrit (blood only) 37.2 % (37.0-47.0); Hemoglobin 12.1 g/dl (12.0-16.0); Immature Granulocytes # (auto) 0.09 K/uL (0.01-0.20); Immature Granulocytes % (auto) 0.7 %; Lymphocytes # (auto) 1.68 K/uL (1.2-3.4); Lymphocytes % (auto) 12.8 %; Mean Corpuscular Hemoglobin 28.9 pg (25.0-34.0); Mean Corpuscular Hgb Conc 32.5 g/dL (32.0-36.0); Mean Corpuscular Volume 88.8 fL (80.0-100.0); Mean Platelet Volume 10.1 fL (9.4-12.4); Monocytes # (auto) 0.68 K/uL (0.11-0.59); Monocytes % (auto) 5.2 %; Neutrophils # (auto) 10.66 K/uL (1.40-6.50); Neutrophils % (auto) 81.2 %; Platelet Count 306 K/uL (130-400); Red Blood Count 4.19 M/uL (4.20-5.40); White Blood Count 13.12 K/ul (4.8-10.8)
[2022-06-28 07:14] LABS: BUN Creatinine Ratio 16.4 (10-20); Calcium 9.2 mg/dl (8.6-10.3); Creatinine Clr Calc Pharmacy 112.3 ml/min; Est GFR (African American) 113.4 ml/min; Est GFR (Non-African American) 97.8 ml/min; Potassium 4.1 mmol/L (3.5-5.1)
[2022-06-28] MEDS ORDERED: dexAMETHasone 10 MG in SYRINGE 0 ML IV SCH (08:00)
--- NOTE | 2022-06-28 08:26 | Orthopedic Progress Note ---
Date of Service June 28, 2022 Assessment & Plan (1) Primary osteoarthritis, right shoulder: Plan: Postop day 1 status post right TSA PT/OT protocols. Nonweightbearing right upper extremity. DVT prophylaxis-aspirin p.o. twice daily, SCDs. Pain management as written. DC planning-patient is planning for home health services upon discharge. Plan for discharge home today. Admission and Anticipated Discharge Date Admission Date: June 27, 2022 Subjective Postop day 1 Patient is sitting up in bed awake and alert. States she is having some pain this morning but is otherwise feeling well. Denies shortness of breath, chest pain, lightheadedness. She is hoping to go home today with home health services. Physical Exam Physical Exam: Silverlon dressing is clean, dry, and intact. Sling is in place. She has good range of motion of her right fingers and wrist. Sensation is intact. Cap refill is less than 2 seconds. Results & Data Vital Signs (Past 12 Hours) Vital Signs Temp Pulse Resp BP Pulse Ox O2 Del Method 06/28/22 07:34 36.4 C L 69 16 118/64 95 Room Air 06/28/22 03:01 37.0 C 77 16 143/73 H 97 Room Air 06/27/22 23:34 36.5 C 76 16 113/65 96 Room Air Laboratory Results Laboratory Results WBC 13.12 K/ul (4.8-10.8) H 06/28/22 06:02 RBC 4.19 M/uL (4.20-5.40) L 06/28/22 06:02 Hgb 12.1 g/dl (12.0-16.0) 06/28/22 06:02 Hct 37.2 % (37.0-47.0) 06/28/22 06:02 MCV 88.8 fL (80.0-100.0) 06/28/22 06:02 MCH 28.9 pg (25.0-34.0) 06/28/22 06:02 MCHC 32.5 g/dL (32.0-36.0) 06/28/22 06:02 RDW Std Deviation 45.0 fL (36.4-46.3) 06/28/22 06:02 RDW Coeff of Joseph 14.0 % (11.5-14.5) 06/28/22 06:02 Plt Count 306 K/uL (130-400) 06/28/22 06:02 MPV 10.1 fL (9.4-12.4) 06/28/22 06:02 Immature Gran % (Auto) 0.7 % 06/28/22 06:02 Neut % (Auto) 81.2 % 06/28/22 06:02 Lymph % (Auto) 12.8 % 06/28/22 06:02 [place] % (Auto) 5.2 % 06/28/22 06:02 Eos % (Auto) 0.0 % 06/28/22 06:02 Baso % (Auto) 0.1 % 06/28/22 06:02 Neut # (Auto) 10.66 K/uL (1.40-6.50) H 06/28/22 06:02 Lymph # (Auto) 1.68 K/uL (1.2-3.4) 06/28/22 06:02 [place] # (Auto) 0.68 K/uL (0.11-0.59) H 06/28/22 06:02 Eos # (Auto) 0.00 K/uL (0-0.50) 06/28/22 06:02 Baso # (Auto) 0.01 K/uL (0-0.2) 06/28/22 06:02 Immature Gran # (Auto) 0.09 K/uL (0.01-0.20) 06/28/22 06:02 Sodium 136 mmol/L (136-145) 06/28/22 06:02 Potassium 4.1 mmol/L (3.5-5.1) 06/28/22 06:02 Chloride 103 mmol/L (98-107) 06/28/22 06:02 Carbon Dioxide 25 mmol/L (21-32) 06/28/22 06:02 Anion Gap 8 (3-11) 06/28/22 06:02 BUN 10 mg/dl (6-23) 06/28/22 06:02 Creatinine 0.61 mg/dl (0.6-1.2) 06/28/22 06:02 Est Cr Clr Drug Dosing 112.3 ml/min 06/28/22 06:02 Est GFR ( Amer) 113.4 ml/min 06/28/22 06:02 Est GFR (Non-Af Amer) 97.8 ml/min 06/28/22 06:02 BUN/Creatinine Ratio 16.4 (10-20) 06/28/22 06:02 Glucose 122 mg/dl (70-99(Fasting)) H 06/28/22 06:02 POC Glucose 132 mg/dl (70-99) H 06/28/22 07:54 Calcium 9.2 mg/dl (8.6-10.3) 06/28/22 06:02 SARS-CoV-2, RNA, NAAT NEGATIVE (NEGATIVE) 06/27/22 Unknown
[2022-06-28] MEDS: DOCUSATE SODIUM 100 MG CAP PO SCH (08:38)
[2022-06-28] MEDS: GABAPENTIN 800 MG TAB PO SCH (08:38)
[2022-06-28] MEDS: ASPIRIN 81 MG ECTAB PO SCH (08:39)
[2022-06-28] MEDS: CeleBREX 200 MG CAP PO SCH (08:39)
[2022-06-28] MEDS: INSULIN ASPART PER UNIT CHARGE SC SCH (08:39)
[2022-06-28] MEDS ORDERED: PANTOprazole 40 MG TAB PO SCH (09:00)
[2022-06-28] MEDS ORDERED: SPIRONOLACTONE 12.5 MG TAB PO SCH (09:00)
[2022-06-28] MEDS ORDERED: METOPROLOL TARTRATE 25 MG TAB PO SCH (09:00)
[2022-06-28] MEDS ORDERED: FUROSEMIDE 40 MG TAB PO SCH (09:00)
[2022-06-28] MEDS ORDERED: DULoxetine HCL 60 MG CAP PO SCH (09:00)
[2022-06-28] MEDS ORDERED: ESCITALOPRAM OXALATE 20 MG TAB PO SCH (09:00)
[2022-06-28] MEDS ORDERED: FLUTICASONE/VILANTEROL 200/25MCG 14 PUFFS/INHALER INH SCH (09:00)
[2022-06-28] MEDS ORDERED: FLUTICASONE PROPIONATE NA SPR 16 GM BTL SCH (09:00)
[2022-06-30] MEDS ORDERED: estradioL 1 MG TAB PO SCH (09:00)
--- NOTE | 2022-07-01 14:11 | Discharge Summary ---
Date of Service July 01, 2022 Admission HPI Per Admitting Provider Reema is a 61-year-old woman with right shoulder osteoarthritis. After the failure of conservative treatment I recommended proceeding with a right anatomic total shoulder replacement. Principal Diagnosis Right shoulder DJD Discharge Exam Silverlon dressing is clean, dry, and intact. Sling is in place. She has good range of motion of her right fingers and wrist. Sensation is intact. Cap refill is less than 2 seconds. Eyes PERRL, conjunctivae normal, anicteric sclerae ENMT external ear and nose normal, oropharynx normal Discharge Data Allergies Allergy/AdvReac Type Severity Reaction Status Date / Time tetracycline Allergy Intermediate Hives, SOB Verified 06/27/22 11:09 Consultations 06/27/22 15:50 Consult Hospitalist Routine Procedures Performed Operation Date: 06/27/22 13:20 Actual Procedures p Right Total Shoulder Arthroplasty Anatomic(Right) - Yasmany York MD Ordered Studies 06/27/22 05:00 US - OR guided needle placemen Routine Hospital Course (1) Primary osteoarthritis, right shoulder: Postop day 1 status post right TSA PT/OT protocols. Nonweightbearing right upper extremity. DVT prophylaxis-aspirin p.o. twice daily, SCDs. Pain management as written. DC planning-patient is planning for home health services upon discharge. Plan for discharge home today. Total Time Total Time Spent Total Time Spent (In Minutes): 30 minutes Discharge Plan Discharge Items Patient Disposition: Home - Home Health Services Reason For Visit: STATUS POST RIGHT TOTAL SHOULDER REPLACEMENT Discharge Diagnosis: Osteoarthritis right shoulder Activity: Per Instructions section Weightbearing: Right non-weightbearing Non-emergency contact: Surgeon Call non-emergency contact if: you have any medication questions, your pain is not controlled, your temperature is above 101.5, your wound has increased redne ss and your wound has increased drainage Follow-up/Referrals: Osmani Cunningham MD [Primary Care Provider] - Yasmany York MD [Surgeon] - (Follow-up with Dr. York or his PA in 2 weeks from the day of your surgery for your first postoperative visit.) Diet: Regular Addtl Attending Provider Instructions: Take aspirin 81mg twice daily x 30 days for DVT prophylaxis. Take Celebrex 200mg twice daily x 30 days. Do not take other NSAIDs while taking Celebrex. Post-op medications sent to patient's pharmacy by U. Post-op pain medication sent in to your pharmacy on file. Please call Dr. York's office for any questions about your medications. Post-op dressing to remain in place for 7 days. Dressing can be removed 7 days following surgery by home nursing. Patient may shower 7 days following surgery. Do not submerge the shoulder. Wear the shoulder sling at all times except for bathing, dressing, and doing home exercises. Do home exercises. Pending Studies at Discharge: No Stand-Alone Forms: [facility], Smoking Cessation Medications and DC Order Prescriptions: New acetaminophen [Tylenol Extra Strength] 500 mg Tablet 1,000 mg PO Q8 14 Days Qty: 84 0RF aspirin 81 mg Tablet,Delayed Release (Dr/Ec) 81 mg PO BID 30 Days Qty: 60 0RF Continued multivitamin [Multiple Vitamins] Tablet 1 tab PO QAM albuterol sulfate 0.63 mg/3 mL Solution For Nebulization 0.63 mg INHALATION UD PRN (Reason: Shortness Of Breath) gabapentin 400 mg Capsule 800 mg PO TID metformin 850 mg Tablet 850 mg PO BID spironolactone 25 mg Tablet 12.5 mg PO QAM calcium carbonate [Calcium 600] 600 mg calcium (1,500 mg) Tablet 600 mg PO QAM fluticasone propion-salmeterol [Advair Diskus] 500-50 mcg/dose Blister With Device 1 inh INHALATION BID nitroglycerin 0.4 mg Tablet, Sublingual 1 tab Sublingual UD PRN (Reason: Chest Pain) Patient Comments: last use a yr or so ago montelukast [Singulair] 10 mg Tablet 10 mg PO HS furosemide 20 mg Tablet 40 mg PO QAM albuterol sulfate [Ventolin HFA] 90 mcg/actuation Hfa Aerosol Inhaler 2 puff INHALATION UD PRN (Reason: Shortness Of Breath) fluticasone propionate [Flonase Allergy Relief] 50 mcg/actuation [place],Suspension 2 spray INTRANASAL QAM duloxetine [Cymbalta] 60 mg Capsule,Delayed Release(Dr/Ec) 60 mg PO QAM levothyroxine [Synthroid] 175 mcg tablet 175 mcg PO QAM meclizine 25 mg tablet 12.5 - 25 mg PO Q8H PRN (Reason: Vertigo) Rx Instructions: Take 1/2 to 1 tablet by mouth every 8 hours as needed for vertigo amitriptyline 25 mg tablet 25 mg PO HS atorvastatin 80 mg tablet 80 mg PO HS celecoxib [Celebrex] 200 mg capsule 200 mg PO BID estradiol [Estrace] 1 mg tablet 1 mg PO WK Rx Instructions: ( pt verified pat call 10/11/21) pantoprazole [Protonix] 40 mg tablet,delayed release (DR/EC) 40 mg PO QAM escitalopram oxalate [Lexapro] 20 mg tablet 20 mg PO QAM metoprolol tartrate 25 mg tablet 25 mg PO DAILY Discontinued aspirin [Aspir-81] 81 mg Tablet,Delayed Release (Dr/Ec) 81 mg PO QAM Krames/Other Patient Handouts: Shoulder Replacement Surg Recovery Admission Data Admit Date/Time: 06/27/22 15:50 Attending Provider: Yasmany York Admit Provider: Yasmany York Primary Care Provider: Osmani Cunningham Other Providers: Mara Roth ; Kashmir Chauhan ; [facility] Other Interventions: Discharge Summary Assessment (RN) Last Done: 06/28/22 10:58 Supervising Physician Co-Signing Physician Notes I have seen and examined the patient and have discussed the case with the provider above. I agree with the assessment and plan as stated. 61 yo F post op s/p shoulder surgery today. She is diaphoretic with a box fan blowing on her and is reporting pain. She had fentanyl 100mcg and Dilaudid IV 2mg in the PACU in the last 3 hours. She was able to tolerate PO. Denies numbness in her fingers. Agree with plan as above. Glucose has been running well and she took her metformin this am. Agree with Insulin for correction factor with carb coverage as ordered, but if she stays longer than tomorrow, consider adding glargine. Currently on SCDs at this time for DVT proph. Consider chemoprophylaxis if prolonged stay. Thank you for the consultation. DO Marcell
== END 2022-06-28 11:22 | disposition home health service (06) ==
LOC: ASU 10:26 → 3E 10:26